=== PATIENT | female | born 1935 | race Caucasian/White ===

== ENCOUNTER → 2017-05-23 | Day surgery (SDC) | payer BC ==
[2017-04-20 08:44] VITALS: Ht 160 cm; Wt 54.5 kg
[~2017-05-23] VITALS: Ht 160 cm; Wt 54.5 kg
[~2017-05-23] MED LIST: 500ML BSS 0.3ML EPI 1:1000PF IRRIG ONE; ACETAMINOPHEN 325 MG TAB PO PRN; AMVISC PLUS 0.8ML SYRINGE INT OCU ONE; ATROPINE SULFATE 0.1 MG/ML 5ML SYR IV PRN; BSS FLUSH ONE; CALC600T9 PO; EpHEDrine SULFATE INJ 50 MG/ML AMP IV PRN; EpINEphrine INJ 1MG/ML AMP 1 MG/ML AMP ONE; LIDOCAINE 3.5% OPH GEL PER APPLICATION CHARGE ONE; LIDOCAINE HCL 1% MPF 2 ML VIAL ONE; MIDAZOLAM HCL 1 MG/ML 2ML VIAL ONE; OCUCOAT 1 ML SOLN IO ONE; POVIDONE-IODINE OP SOLN 30 ML BTL ONE; PROPARACAINE 0.5% OP SOLN PER DROP CHARGE OPL SCH; TOBRAMYCIN/DEXAMETHASONE OPH OINT PER APPLN CHARGE ONE
[2017-05-23] MEDS: PHENYLEPHRINE HCL 2.5% OP SOLN PER DROP CHARGE OPL SCH ×2 (10:39→10:44)
[2017-05-23] MEDS: TROPICAMIDE 1% OP SOLN PER DROP CHARGE OPL SCH ×2 (10:40→10:45)
[2017-05-23] MEDS: CYCLOPENTOLATE HCL 1% OP SOLN PER DROP CHARGE OPL SCH ×2 (10:41→10:46)
[2017-05-23] MEDS: KETOROLAC 0.5% OP SOLN PER DROP CHARGE OPL SCH ×2 (10:42→10:47)
[2017-05-23] MEDS: GATIFLOXACIN OP SOLN PER DROP CHARGE OPL SCH ×2 (10:43→10:53)
--- NOTE | 2017-05-23 11:09 | History & Physical Bridge - [place] ---
H&P Re-Evaluation Bridge Note: I have examined the patient, reviewed the History & Physical and in the interval since the performance of the History & Physical I have noted the following changes of clinical significance: No changes noted
--- NOTE | 2017-05-23 11:40 | [facility] Operative Report ---
Operative Report Date of Service May 23, 2017. Operative Report 1. PREOPERATIVE DIAGNOSIS: Cataract of the left eye. 2. POSTOPERATIVE DIAGNOSIS: Same. 3. PROCEDURE: Phacoemulsification with intraocular lens implantation of the left eye. SURGEON: Dr. De Pizano. ANESTHESIA: Topical Lidocaine gel, 1% Non- Preserved intracameral Lidocaine, and monitored intravenous sedation. INDICATIONS FOR THE PROCEDURE: The patient is a 81 - year-old female with a history of cataract of the left eye causing significant visual impairment. The details of the proposed procedure were explained to the patient who asked appropriate questions and following discussion of all risks, benefits and alternatives agreed to have the procedure done. 4. OPERATION AND FINDINGS: DESCRIPTION OF PROCEDURE: After informed consent was obtained, the patient was brought to the Operating Room at the [facility]. The patient was placed in a supine position and then the left eye was prepped and draped in the usual sterile fashion for intraocular surgery. A drop of topical Lidocaine gel was placed in the operative eye. A wire lid speculum was then placed in the fornices. A corneal paracentesis was then created temporally. The Non-Preserved Lidocaine was then instilled into the anterior chamber. The anterior chamber was then pressurized with viscoelastic. A 2.0 mm clear corneal incision was then created temporally. A cystotome was inserted into the anterior chamber and used to create a tear in the anterior lens capsule. This capsular tear was then used to create a small flap and the flap was dragged in a counterclockwise direction in order to create a continuous curvilinear capsulorrhexis. Hydrodissection was accomplished with balanced salt solution. Phacoemulsification of the lens nucleus was then performed in a standard [id number]-[id number] technique. The phaco time was 31 seconds with an average power of 18 %. The remaining cortical material was removed using irrigation aspiration. The capsular bag was then filled with viscoelastic. A [employer]ch [employer] Lomb MI60L +27.0 diopters lens was then loaded into the injector and injected into the capsular bag. The remaining viscoelastic was removed with the irrigation aspiration handpiece. The wound was hydrated and then checked and found to be watertight. The intraocular pressure was checked and found to be adequate. The wire lid speculum was removed and the patient's face was cleaned and dried. TobraDex ointment was placed in the inferior fornix. The patient was discharged to the Recovery Room having tolerated the procedure well. There were no complications. The patient will be seen tomorrow in the office for follow-up. I attest to the content of the Intraoperative Record and any orders documented therein. Any exceptions are noted below.
--- NOTE | 2017-05-23 11:41 | Discharge Instructions-SurgCtr ---
Discharge Instructions Date of Service May 23, 2017. Visit Reason for Visit: Cataract Left Eye Discharge Discharge Diagnosis / Problem: cataract Discharge Goals Goal(s): Improve function Activity Recommendations Activity Limitations: per Instructions/Follow-up section Anesthesia . Post Anesthesia Instructions: If you have had General Anesthesia or IV Sedation: * Do not drive today. * Resume driving when surgeon permits. * Do not make important decisions or sign legal documents today. * Call surgeon for: 1. Temperature elevations greater than 101 degrees F. 2. Uncontrollable pain. 3. Excessive bleeding. 4. Persistent nausea and vomiting. 5. Medication intolerance (nausea, vomiting or rash). * For nausea and vomiting use only clear liquids such as: tea, soda, bouillon until nausea subsides, then gradually increase diet as tolerated. * If you have any concerns or questions, call your surgeon's office. If physician is unavailable and it is an emergency, call 911 or go to the nearest emergency room. . Diet Recommendations Home Diet: resume previous diet Procedures Procedures Performed: Left Cataract Phacoemulsification With Intraocular Lens Implant Pending Studies Studies pending at discharge: no Medical Emergencies . Who to Call and When: Medical Emergencies: If at any time you feel your situation is an emergency, please call 911 immediately. . Non-Emergent Contact Non-Emergency issues call your: Wood Box Maker . . "Provider Documentation" section prepared by De Pizano. .
[2017-05-23 11:49] VITALS: TEMP 36.4
[2017-05-23 12:05] VITALS: BP 133/75; PULSE 64; O2SAT 94
--- NOTE | 2017-05-23 12:23 | Anesthesia Progress Nt - [facility] ---
Anesthesia Post Op Note Date & Time May 23, 2017 at 12:23 Vital Signs Pain Intensity: 2 Vital Signs Past 12 Hours Date Time Temp Pulse Resp B/P (MAP) Pulse Ox O2 Delivery O2 Flow Rate FiO2 05/23/17 12:05 64 16 133/75 (94) 94 Room Air 05/23/17 11:49 36.4 64 16 133/73 (93) 96 Room Air 05/23/17 10:34 36.7 65 20 133/81 (98) 94 Room Air Notes Mental Status: alert / awake / arousable, participated in evaluation Pt Amnestic to Procedure: Yes Nausea / Vomiting: adequately controlled Pain: adequately controlled Airway Patency, RR, SpO2: stable & adequate BP & HR: stable & adequate Hydration State: stable & adequate Anesthetic Complications: no major complications apparent
== END | disposition home or self-care (01) ==
LOC: X.SURG 10:12
PROVIDERS: ATTEND Ophthalmology
DX: H25.9 Unspecified age-related cataract (principal); E78.5 Hyperlipidemia, unspecified; M19.90 Unspecified osteoarthritis, unspecified site; Z90.89 Acquired absence of other organs; Z98.890 Other specified postprocedural states; Z88.5 Allergy status to narcotic agent

== ENCOUNTER → 2017-06-13 | Day surgery (SDC) | payer BC ==
[2017-05-31 13:08] VITALS: Ht 160 cm; Wt 54.5 kg
[~2017-06-13] VITALS: Ht 160 cm; Wt 54.5 kg
[~2017-06-13] MED LIST changes: +GATIFLOXACIN OP SOLN PER DROP CHARGE OPR SCH; +LACTATED RINGER'S 1000ML 500 ML IV SCH; -PROPARACAINE 0.5% OP SOLN PER DROP CHARGE OPL SCH; +PROPARACAINE 0.5% OP SOLN PER DROP CHARGE OPR SCH
[2017-06-13] MEDS: PHENYLEPHRINE HCL 2.5% OP SOLN PER DROP CHARGE OPR SCH ×2 (08:05→08:10)
[2017-06-13] MEDS: TROPICAMIDE 1% OP SOLN PER DROP CHARGE OPR SCH ×2 (08:06→08:11)
[2017-06-13] MEDS: CYCLOPENTOLATE HCL 1% OP SOLN PER DROP CHARGE OPR SCH ×2 (08:07→08:12)
[2017-06-13] MEDS: KETOROLAC 0.5% OP SOLN PER DROP CHARGE OPR SCH ×2 (08:08→08:13)
--- NOTE | 2017-06-13 09:01 | [facility] Operative Report ---
Operative Report Date of Service Jun 13, 2017. Operative Report 1. PREOPERATIVE DIAGNOSIS: Cataract of the right eye. 2. POSTOPERATIVE DIAGNOSIS: Same. 3. PROCEDURE: Phacoemulsification with intraocular lens implantation of the right eye. SURGEON: Dr. De Pizano. ANESTHESIA: Topical Lidocaine gel, 1% Non- Preserved intracameral Lidocaine, and monitored intravenous sedation. INDICATIONS FOR THE PROCEDURE: The patient is a 81 - year-old female with a history of cataract of the right eye causing significant visual impairment. The details of the proposed procedure were explained to the patient who asked appropriate questions and following discussion of all risks, benefits and alternatives agreed to have the procedure done. 4. OPERATION AND FINDINGS: DESCRIPTION OF PROCEDURE: After informed consent was obtained, the patient was brought to the Operating Room at the [facility]. The patient was placed in a supine position and then the right eye was prepped and draped in the usual sterile fashion for intraocular surgery. A drop of topical Lidocaine gel was placed in the operative eye. A wire lid speculum was then placed in the fornices. A corneal paracentesis was then created temporally. The Non-Preserved Lidocaine was then instilled into the anterior chamber. The anterior chamber was then pressurized with viscoelastic. A 2.0 mm clear corneal incision was then created temporally. A cystotome was inserted into the anterior chamber and used to create a tear in the anterior lens capsule. This capsular tear was then used to create a small flap and the flap was dragged in a counterclockwise direction in order to create a continuous curvilinear capsulorrhexis. Hydrodissection was accomplished with balanced salt solution. Phacoemulsification of the lens nucleus was then performed in a standard wxewtv-had-vvsviva technique. The phaco time was 22 seconds with an average power of 13 %. The remaining cortical material was removed using irrigation aspiration. The capsular bag was then filled with viscoelastic. A Bausch [employer] Lomb MI60L +21.5 diopters lens was then loaded into the injector and injected into the capsular bag. The remaining viscoelastic was removed with the irrigation aspiration handpiece. The wound was hydrated and then checked and found to be watertight. The intraocular pressure was checked and found to be adequate. The wire lid speculum was removed and the patient's face was cleaned and dried. TobraDex ointment was placed in the inferior fornix. The patient was discharged to the Recovery Room having tolerated the procedure well. There were no complications. The patient will be seen tomorrow in the office for follow-up. I attest to the content of the Intraoperative Record and any orders documented therein. Any exceptions are noted below.
--- NOTE | 2017-06-13 09:02 | Discharge Instructions-SurgCtr ---
Discharge Instructions Date of Service Jun 13, 2017. Visit Reason for Visit: Cataract Right Eye Discharge Discharge Diagnosis / Problem: cataract Discharge Goals Goal(s): Improve function Activity Recommendations Activity Limitations: per Instructions/Follow-up section Anesthesia . Post Anesthesia Instructions: If you have had General Anesthesia or IV Sedation: * Do not drive today. * Resume driving when surgeon permits. * Do not make important decisions or sign legal documents today. * Call surgeon for: 1. Temperature elevations greater than 101 degrees F. 2. Uncontrollable pain. 3. Excessive bleeding. 4. Persistent nausea and vomiting. 5. Medication intolerance (nausea, vomiting or rash). * For nausea and vomiting use only clear liquids such as: tea, soda, bouillon until nausea subsides, then gradually increase diet as tolerated. * If you have any concerns or questions, call your surgeon's office. If physician is unavailable and it is an emergency, call 911 or go to the nearest emergency room. . Diet Recommendations Home Diet: resume previous diet Procedures Procedures Performed: Right Cataract Phacoemulsification With Intraocular Lens Implant Pending Studies Studies pending at discharge: no Medical Emergencies . Who to Call and When: Medical Emergencies: If at any time you feel your situation is an emergency, please call 911 immediately. . Non-Emergent Contact Non-Emergency issues call your: Rubbish Collector . . "Provider Documentation" section prepared by De Pizano. .
[2017-06-13 09:03] VITALS: TEMP 36.7
--- NOTE | 2017-06-13 09:20 | Anesthesia Progress Nt - [facility] ---
Anesthesia Post Op Note Date & Time Jun 13, 2017 at 09:20 Vital Signs Pain Intensity: 0 Vital Signs Past 12 Hours Date Time Temp Pulse Resp B/P (MAP) Pulse Ox O2 Delivery O2 Flow Rate FiO2 06/13/17 09:03 36.7 60 16 146/69 (94) 96 Room Air 06/13/17 07:55 36.4 69 16 133/83 (100) 96 Room Air Notes Mental Status: alert / awake / arousable, participated in evaluation Pt Amnestic to Procedure: Yes Nausea / Vomiting: adequately controlled Pain: adequately controlled Airway Patency, RR, SpO2: stable & adequate BP & HR: stable & adequate Hydration State: stable & adequate Anesthetic Complications: no major complications apparent
[2017-06-13 09:28] VITALS: BP 144/65; PULSE 60; O2SAT 95
== END | disposition home or self-care (01) ==
LOC: X.SURG 07:44
PROVIDERS: ATTEND Ophthalmology
DX: H25.9 Unspecified age-related cataract (principal); M19.90 Unspecified osteoarthritis, unspecified site; R94.31 Abnormal electrocardiogram [ECG] [EKG]; R76.11 Nonspecific reaction to tuberculin skin test without active tuberculosis; E78.5 Hyperlipidemia, unspecified

== ENCOUNTER 2022-03-05 20:33 | Inpatient (IN) ==
[2022-03-05 21:16] LABS: Basophils # (auto) 0.04 K/uL (0-0.2); Basophils % (auto) 0.5 %; Eosinophils % (auto) 3.8 %; Hematocrit (blood only) 40.9 % (34.1-44.9); Hemoglobin 13.9 g/dl (12.0-16.0); INR 0.9 (0.9-1.1); Immature Granulocytes # (auto) 0.02 K/uL (0.00-0.02); Immature Granulocytes % (auto) 0.3 %; Lymphocytes # (auto) 2.44 K/uL (1.2-3.4); Lymphocytes % (auto) 30.6 %; Mean Corpuscular Hemoglobin 31.9 pg (25.0-34.0); Mean Corpuscular Volume 93.8 fL (80.0-100.0); Mean Platelet Volume 10.4 fL (9.4-12.3); Monocytes # (auto) 0.88 K/uL (0.24-0.82); Neutrophils # (auto) 4.29 K/uL (1.4-6.5); Neutrophils % (auto) 53.8 %; Partial Thromboplastin Ratio 0.9; Partial Thromboplastin Time 24.3 Seconds (21.0-31.0); Platelet Count 270 K/uL (130-400); RDW Coefficient of Variation 13.1 % (11.5-14.5); RDW Standard Deviation 44.7 fL (36.4-46.3); Red Blood Count 4.36 M/uL (3.93-5.22); White Blood Count 7.97 K/ul (4.8-10.8)
[2022-03-05 21:24] LABS: Alanine Aminotransferase 14 U/L (7-52); Albumin Globulin Ratio 1.2 (0.9-2); Albumin Level 4.2 gm/dl (3.4-5.0); Alkaline Phosphatase 58 U/L (34-104); Anion Gap 10 (3-11); Aspartate Aminotransferase 22 U/L (13-39); BUN Creatinine Ratio 27.2 (10-20); Bilirubin,Total 0.5 mg/dl (0.2-1.0); Blood Urea Nitrogen 22 mg/dl (6-23); Calcium 9.9 mg/dl (8.5-10.1); Carbon Dioxide 26 mmol/L (21-32); Chloride 104 mmol/L (98-107); Est GFR (African American) 76.8 ml/min; Est GFR (Non-African American) 66.2 ml/min; Globulin 3.4 gm/dl (2.5-4.0); Glucose 81 mg/dl (70-99(Fasting)); Potassium 3.5 mmol/L (3.5-5.1); Sodium 140 mmol/L (136-145); Total Protein 7.6 gm/dl (6.0-8.3)
[2022-03-05 21:26] LABS: Troponin I High Sensitivity 5.9 pg/ml (0-14)
[2022-03-05] MEDS ORDERED: OPTIRAY 350 100ml IV ONE (21:59)
--- NOTE | 2022-03-05 23:00 | CT Scan Report ---
CT abd pelvis IV con only CLINICAL HISTORY: upper/mid abd pain TECHNIQUE: Helical axial images of the abdomen and pelvis were obtained and displayed. Automated dose lowering techniques and/or adjustment according to patient size were utilized for this exam. This ex am was performed with intravenous contrast. CT DOSE: 243.57 mGy.cm COMPARISON: Comparison is made to CT abdomen pelvis 12/02/2015 FINDINGS: Lower chest: Bibasilar atelectasis versus scarring is seen. Liver: Hepatic cysts are seen. Gallbladder and biliary tree: Cholelithiasis is seen including stones in the gallbladder neck. The ga llbladder wall is prominent measuring approximately 3 mm in diameter. There is dilation of the common bile duct measuring up to 8 mm. A calcific stone is noted in the distal common bile duct. Pancreas: Unremarkable, no focal lesions. Spleen: Unremarkable. Adrenals: Unremarkable. Kidneys and ureters: Unremarkable. Bladder: Unremarkable. Reproductive organs: Unremarkable. Bowel: Diverticulosis is seen without evidence of diverticulitis. The appendix is normal. Lymph nodes Retroperitoneal: Unremarkable. Pelvic: Unremarkable. Mesenteric: Unremarkable. Peritoneum: Normal. Vessels: Atherosclerotic calcifications are seen. Abdominal wall: Unremarkable. Bones: Degenerative changes in the visualized spine. IMPRESSION: Choledocholithiasis is seen with associated dilation of the common bile duct. There is thickening of the gallbladder wall which may reflect a secondary cholecystitis. Cholelithiasis is seen. ACT 112: Negative or not required by law. Electronically signed by: Paul Porter M.D. 03/05/2022 10:58 PM
--- NOTE | 2022-03-05 23:07 | Ultrasound Report ---
US gallbladder CLINICAL HISTORY: epi pain TECHNIQUE: Multiple real-time sonographic images of the right upper quadrant were obtained. Comparison: Comparison is made to CT abdomen pelvis 03/05/2022 FINDINGS: The liver is diffusely homogenous with normal contour and echogenicity. Multiple hepatic cysts are se en measuring up to 2.4 cm. No intrahepatic ductal dilatation is seen. Linear hyperechoic foci with posterior shadowing are identified layering dependently within the gallbladder, which are consistent with gallstones. The gallbladder wall is not thickened. There is no pericholecystic fluid present. A sonographic Jovel's sign was not elicited by the metalizing supervisor. The common duct measures 1.1 cm in diameter at the level of the hepatic artery. The visualized portions of the pancreas appear normal. The right kidney shows normal echogenicity, cortical thickness and renal contour. The right kidney sh ows no evidence of hydronephrosis or mass. No ascites or free fluid is seen in Matthews's pouch. IMPRESSION: Marked dilation of the common bile duct measuring 1.1 cm in diameter compatible with choledocholithia sis seen on CT abdomen pelvis. Multiple stones are seen in the gallbladder without evidence of cholec ystitis. ACT 112: Negative or not required by law. Electronically signed by: Paul Porter M.D. 03/05/2022 11:05 PM
--- NOTE | 2022-03-05 23:34 | History & Physical Report ---
Date of Service March 05, 2022 Assessment & Plan (1) Choledocholithiasis: Plan: Choledocholithiasis - Presenting with acute-onset upper abdominal pain with evidence of choledocholithiasis on CT-A/P and RUQ US - CT-A/P: "choledocholithiasis is seen with associated dilatation of the common bile duct. There is thickening of the gallbladder wall which may reflect secondary cholecystitis." - Gallbladder US demonstrated "Marked dilation of the common bile duct measuring 1.1 cm in diameter compatible with choledocholithiasis ... Multiple stones are seen in the gallbladder without evidence of cholecystitis." - Appreciate general surgery consult and input on ?CCY while here - Appreciate GI consult and input on ERCP while here - NPO w/ mIVF @ 80cc/hr x 1L ordered - Continue Zosyn - Pain: Morphine 2mg IV q2h PRN > Dilaudid 0.25mg IV breakthrough -- can escalate as needed - Trend LFTs (2) Hypertension: Plan: HTN, HLD - Continue amlodipine, metoprolol, ASA 81 Plan Code: FULL Dispo: MS Diet: NPO PPX: SCDs History of Present Illness Primary Care Provider: Selena Bloom MD This is an 86-year-old female with a history of degenerative disc disease, bronchiectasis, hypertension who presented to [facility] for evaluation of epigastric pain. Patient says she was sitting quietly and reading around 830 this evening when she developed acute onset upper abdominal pain rating towards her right side. She denies ever having pain like this before. She waited to see if it would go away on its own, but unfortunately is not. She reported to the ER shortly thereafter. In the ER, the pain spontaneously resolved on its own prior to the receipt of any pain medications. Unfortunately, about an hour later, it did reappear more intensely. She denies any nausea or vomiting. Denies any chest pain. Denies any shortness of breath. She denies any recent health issues. Medications reviewed include amlodipine, aspirin, vitamin D3, calcium, metoprolol 25 mg daily, rosuvastatin 5 mg daily. She has no history of intra-abdominal surgeries. She does mention that she was scheduled to have hip surgery within the coming weeks. In ED, patient was found to be mildly hypertensive with otherwise normal vital signs. Admission labs were revealing for normal CBC, chemistries, normal LFTs. CT of the abdomen and pelvis demonstrated "choledocholithiasis is seen with associated dilatation of the common bile duct. There is thickening of the gallbladder wall which may reflect secondary cholecystitis." Gallbladder US demonstrated "Marked dilation of the common bile duct measuring 1.1 cm in diameter compatible with choledocholithiasis seen on CT abdomen pelvis. Multiple stones are seen in the gallbladder without evidence of cholecystitis." ECG demonstrated isolated ST depression in V3 but otherwise unchanged compared to previous. She was given morphine. ---- This documentation was created utilizing dictation software. As such, syntax, grammatical, and word-choice errors may be present. Notes are screened prior to submission in an attempt to reduce these errors. If there are any questions or concerns, please contact the author directly for clarification. Allergies Allergy/AdvReac Type Severity Reaction Status Date / Time codeine AdvReac Unknown VOMITTING Verified 03/06/22 00:27 Home Medications Medication Instructions Recorded Confirmed Type aspirin 81 mg tablet,delayed 81 mg PO DAILY #30 tabs 08/01/19 03/06/22 Rx release rosuvastatin 5 mg tablet 5 mg PO DAILY #90 tabs 08/01/19 03/06/22 Rx metoprolol succinate 25 mg capsule 25 mg PO DAILY 06/23/20 03/06/22 History sprinkle, ext. release 24 hr cholecalciferol (vitamin D3) 25 25 mcg PO DAILY #30 caps 06/24/20 03/06/22 Rx mcg (1,000 unit) capsule amlodipine 2.5 mg tablet 2.5 mg PO DAILY 06/28/21 03/06/22 History calcium carbonate 600 mg calcium 600 mg PO DAILY 11/24/21 03/06/22 History (1,500 mg) tablet (Calcium) vitamin B complex (B 1 tab PO DAILY 11/24/21 03/06/22 History Complex-Vitamin B12 tablet) Past Med/Surg History Medical History Chest pain Diverticulosis of colon Excessive cerumen in left ear canal Impacted cerumen of both ears PPD positive Negative blood test for TB 2019 Right hip pain Surgical History H/O elbow surgery Family History Sister Lung cancer Mother Stroke Brother Stroke Other Cancer Heart disease Tuberculosis Denies family history of Ovarian cancer Prostate cancer Myocardial infarction Breast cancer Colorectal cancer Social History Smoking Status: Never smoker Second Hand Exposure: No; Hx Alcohol Use: Yes Alcohol type: wine Alcohol Intake Frequency: 2-3 x/Week Hx Substance Use: No Preferred Language: Tajik Communication Ability: Effective Design Eng Required: No Beliefs That Will Affect Care: None marital status: Current Living Situation: Spouse current occupational status: retired Feels Safe at Home: Yes Safety Concerns: Feels Safe At This Time Childhood Exposure to Second-Hand Smoke: Yes Dental Care, Regularly: Yes Physical Activity Frequency: Does not Exercise Seatbelt Use: always Sunscreen Use: Yes Assistive Devices: None Review of Systems Review of Systems: as per HPI Physical Exam Physical Exam: General: 86-year old female who is alert, oriented, and appears in moderate distress secondary to pain. HEENT: NCAT. - Eyes - Sclera are white, anicteric, and without injection. - Mouth - MMM - Neck - supple, no appreciable JVD Cardiac: Normal rate and regular rhythm; S1 and S2 present with no murmurs, rubs, or gallops. Pulmonary: Good respiratory effort with symmetric expansion of the chest. No use of accessory muscles. Lungs were clear to auscultation bilaterally with no crackles or wheezes. Abdominal: Normoactive bowel sounds. Abdomen was soft, nondistended. There was mild-moderate TTP in the RUQ. +Jovel sign. Extremities: Upper and lower extremities are warm and well perfused. No peripheral edema in the lower extremities bilaterally Results & Data Results & Data ([facility]) Vital Signs (Past 12 Hours) Vital Signs Temp Pulse Pulse Resp BP BP Pulse Ox 03/05/22 22:04 80 17 157/88 H 98 03/05/22 20:36 36.4 C L 83 18 172/85 H 98 O2 Del Method 03/05/22 22:04 Room Air 03/05/22 20:36 Room Air Laboratory Results Laboratory Results WBC 7.97 K/ul (4.8-10.8) 03/05/22 20:45 RBC 4.36 M/uL (3.93-5.22) 03/05/22 20:45 Hgb 13.9 g/dl (12.0-16.0) 03/05/22 20:45 Hct 40.9 % (34.1-44.9) 03/05/22 20:45 MCV 93.8 fL (80.0-100.0) 03/05/22 20:45 MCH 31.9 pg (25.0-34.0) 03/05/22 20:45 MCHC 34.0 g/dL (32.0-36.0) 03/05/22 20:45 RDW Std Deviation 44.7 fL (36.4-46.3) 03/05/22 20:45 RDW Coeff of Minda 13.1 % (11.5-14.5) 03/05/22 20:45 Plt Count 270 K/uL (130-400) 03/05/22 20:45 MPV 10.4 fL (9.4-12.3) 03/05/22 20:45 Immature Gran % (Auto) 0.3 % 03/05/22 20:45 Neut % (Auto) 53.8 % 03/05/22 20:45 Lymph % (Auto) 30.6 % 03/05/22 20:45 Gem % (Auto) 11.0 % 03/05/22 20:45 Eos % (Auto) 3.8 % 03/05/22 20:45 Baso % (Auto) 0.5 % 03/05/22 20:45 Neut # (Auto) 4.29 K/uL (1.4-6.5) 03/05/22 20:45 Lymph # (Auto) 2.44 K/uL (1.2-3.4) 03/05/22 20:45 Gem # (Auto) 0.88 K/uL (0.24-0.82) H 03/05/22 20:45 Eos # (Auto) 0.30 K/uL (0-0.50) 03/05/22 20:45 Baso # (Auto) 0.04 K/uL (0-0.2) 03/05/22 20:45 Immature Gran # (Auto) 0.02 K/uL (0.00-0.02) 03/05/22 20:45 PT 10.0 Seconds (9.0-12.0) 03/05/22 20:45 INR 0.9 (0.9-1.1) 03/05/22 20:45 APTT 24.3 Seconds (21.0-31.0) 03/05/22 20:45 PTT Ratio 0.9 03/05/22 20:45 Sodium 140 mmol/L (136-145) 03/05/22 20:45 Potassium 3.5 mmol/L (3.5-5.1) 03/05/22 20:45 Chloride 104 mmol/L (98-107) 03/05/22 20:45 Carbon Dioxide 26 mmol/L (21-32) 03/05/22 20:45 Anion Gap 10 (3-11) 03/05/22 20:45 BUN 22 mg/dl (6-23) 03/05/22 20:45 Creatinine 0.81 mg/dl (0.6-1.2) 03/05/22 20:45 Est Cr Clr Drug Dosing Not Reportable 03/05/22 20:45 Est GFR ( Amer) 76.8 ml/min 03/05/22 20:45 Est GFR (Non-Af Amer) 66.2 ml/min 03/05/22 20:45 BUN/Creatinine Ratio 27.2 (10-20) H 03/05/22 20:45 Glucose 81 mg/dl (70-99(Fasting)) 03/05/22 20:45 Calcium 9.9 mg/dl (8.5-10.1) 03/05/22 20:45 Total Bilirubin 0.5 mg/dl (0.2-1.0) 03/05/22 20:45 AST 22 U/L (13-39) 03/05/22 20:45 ALT 14 U/L (7-52) 03/05/22 20:45 Alkaline Phosphatase 58 U/L (34-104) 03/05/22 20:45 Troponin I High Sens 6.6 pg/ml (0-14) 03/05/22 23:17 Total Protein 7.6 gm/dl (6.0-8.3) 03/05/22 20:45 Albumin 4.2 gm/dl (3.4-5.0) 03/05/22 20:45 Globulin 3.4 gm/dl (2.5-4.0) 03/05/22 20:45 Albumin/Globulin Ratio 1.2 (0.9-2) 03/05/22 20:45 Lipase 26 U/L (11-82) 03/05/22 23:17 SARS-CoV-2, RNA, NAAT NEGATIVE (NEGATIVE) 03/05/22 23:41 Impressions Abdomen/Pelvis CT 03/05/22 21:43 CT abd pelvis IV con only CLINICAL HISTORY: upper/mid abd pain TECHNIQUE: Helical axial images of the abdomen and pelvis were obtained and displayed. Automated dose lowering techniques and/or adjustment according to patient size were utilized for this exam. This exam was performed with intravenous contrast. CT DOSE: 243.57 mGy.cm COMPARISON: Comparison is made to CT abdomen pelvis 12/02/2015 FINDINGS: Lower chest: Bibasilar atelectasis versus scarring is seen. Liver: Hepatic cysts are seen. Gallbladder and biliary tree: Cholelithiasis is seen including stones in the gallbladder neck. The gallbladder wall is prominent measuring approximately 3 mm in diameter. There is dilation of the common bile duct measuring up to 8 mm. A calcific stone is noted in the distal common bile duct. Pancreas: Unremarkable, no focal lesions. Spleen: Unremarkable. Adrenals: Unremarkable. Kidneys and ureters: Unremarkable. Bladder: Unremarkable. Reproductive organs: Unremarkable. Bowel: Diverticulosis is seen without evidence of diverticulitis. The appendix is normal. Lymph nodes Retroperitoneal: Unremarkable. Pelvic: Unremarkable. Mesenteric: Unremarkable. Peritoneum: Normal. Vessels: Atherosclerotic calcifications are seen. Abdominal wall: Unremarkable. Bones: Degenerative changes in the visualized spine. IMPRESSION: Choledocholithiasis is seen with associated dilation of the common bile duct. There is thickening of the gallbladder wall which may reflect a secondary cholecystitis. Cholelithiasis is seen. ACT 112: Negative or not required by law. Electronically signed by: Paul Porter M.D. 03/05/2022 10:58 PM Gallbladder Ultrasound 03/05/22 21:43 US gallbladder CLINICAL HISTORY: epi pain TECHNIQUE: Multiple real-time sonographic images of the right upper quadrant were obtained. Comparison: Comparison is made to CT abdomen pelvis 03/05/2022 FINDINGS: The liver is diffusely homogenous with normal contour and echogenicity. Multiple hepatic cysts are seen measuring up to 2.4 cm. No intrahepatic ductal dilatation is seen. Linear hyperechoic foci with posterior shadowing are identified layering dependently within the gallbladder, which are consistent with gallstones. The gallbladder wall is not thickened. There is no pericholecystic fluid present. A sonographic Jovel's sign was not elicited by the information strategist. The common duct measures 1.1 cm in diameter at the level of the hepatic artery. The visualized portions of the pancreas appear normal. The right kidney shows normal echogenicity, cortical thickness and renal contour. The right kidney shows no evidence of hydronephrosis or mass. No ascites or free fluid is seen in Matthews's pouch. IMPRESSION: Marked dilation of the common bile duct measuring 1.1 cm in diameter compatible with choledocholithiasis seen on CT abdomen pelvis. Multiple stones are seen in the gallbladder without evidence of cholecystitis. ACT 112: Negative or not required by law. Electronically signed by: Paul Porter M.D. 03/05/2022 11:05 PM Supervising Physician Co-Signing Physician Notes Patient seen and examined, chart reviewed, case discussed with Dr. Mosley and I agree with the assessment and plan as above. In brief, patient is an 86yo female presenting with choledocholithiasis. She is afebrile, HD stable, no clinical evidence of cholangitis. Labs are largely unremarkable as above. On exam she is afebrile, HD stable In significant amount of pain in epigastric and RUQ, relieved with morphine +S1/S2, regular, no m/r/g Lungs CTA Abd soft, NT/ND Ext warm, well perfused Labs and images reviewed Assessment/Plan - 86yo female presenting with choledocholithiasis, CBD 1.1cm dilated, no evidence of cholangitis. Possible cholecystitis by CT fndings -Admit to medical team -Zosyn, pain control and anti-emetics -GI consultation appreciated -General Surgery consultation appreciated -Remainder as above Resident Activity Tracking Resident Involvement: Resident Care Provided Care Provided: Adult Hospital Medicine
[2022-03-05] MEDS ORDERED: PIPERACILLIN/TAZOBACTAM 4.5 GM/120 ML BAG IV ONE (23:35)
--- NOTE | 2022-03-05 23:44 | Emergency Department Note ---
ED Visit Note I was consulted by the Advanced Practice Provider Yoli Mobley PA-C. I saw the patient personally and performed a substantive portion of the visit. This includes aspects of the HPI, MDM, diagnostic interpretations, and disposition/plan. Patient was evaluated and was found to have choledocholithiasis. The patient was admitted to the medicine service. .
--- NOTE | 2022-03-05 23:47 | Surgery Consultation ---
Date of Consultation March 05, 2022 Assessment & Plan (1) Cholelithiasis: (2) Choledocholithiasis: It appears on imaging the patient has cholelithiasis as well as choledocholithiasis. We recommend proceeding as follows: I discussed with the treating emergency room clinician and she is having the hospitalist admit the patient Provide analgesics Provide antiemetics Provide IV fluid for hydration Implement n.p.o. status Initiate antibioticslikely treating clinician in the emergency department has initiated Zosyn Follow serial labs It appears as though the patient may benefit from a cholecystectomy, however due to the noted choledocholithiasis on imaging the patient will require GI co nsultation where consideration can be given to performing ERCP prior to cholecystectomy. Timing of cholecystectomy will be dependent on further recommendations by gastroenterology At the present time the patient does not appear to be suffering from cholangitis as she does not have a fever and her LFTs are not elevated. I discussed the above with the patient and her who [facility]. Additional recommendations will be forthcoming based on her clinical course as it unfolds Supervising Physician Co-Signing Physician Notes As per Edis Brock physician assistant production manager We will plan to proceed with laparoscopic cholecystectomy prior or after ERCP schedule History of Present Illness Reason for Consultation: Cholelithiasis History of Present Illness This is an 86-year-old female who presented to the emergency department [facility] secondary to pain in her upper abdomen. As the pain was located in her upper abdomen she was more concerned about a cardiac etiology. However upon further questioning the patient reports that the pain is in a bandlike fashion across her upper abdomen. She says she has never had any abdominal surgeries before and has never experienced this type of pain before. She denies any fevers, shakes, or chills. She denies any nausea or vomiting. I did question patient on postprandial pain and which she says she typically does not get. She said that this current episode of pain was unrelated to any meals. Since arrival to the emergency department the patient has had labs and imaging which independent reviewed. An EKG showed normal sinus rhythm without changes indicative of acute ischemia. CBC revealed white blood cell count, hemoglobin, hematocrit, and platelet count were normal. Chemistry profile showed sodium, potassium, BUN, and creatinine were normal. There is no elevation of bilirubin, transaminases or alkaline phosphatase. Patient did have a troponin checked which was nonelevated. Lipase was also not elevated. A gallbladder ultrasound showed marked dilatation of the common bile duct which was felt to be consistent with choledocholithiasis. There are multiple gallstones seen in the gallbladder without evidence of cholecystitis. A CT scan of the abdomen showed choledocholithiasis with associated dilatation of the common bile duct. Thickened gallbladder wall was noted on this study. At the time of my interview she was resting comfortably in bed and was in no distress. Allergies Allergy/AdvReac Type Severity Reaction Status Date / Time codeine AdvReac Unknown VOMITTING Verified 03/06/22 00:27 Home Medications Medication Instructions Recorded Confirmed Type aspirin 81 mg tablet,delayed 81 mg PO DAILY #30 tabs 08/01/19 03/06/22 Rx release rosuvastatin 5 mg tablet 5 mg PO DAILY #90 tabs 08/01/19 03/06/22 Rx metoprolol succinate 25 mg capsule 25 mg PO DAILY 06/23/20 03/06/22 History sprinkle, ext. release 24 hr cholecalciferol (vitamin D3) 25 25 mcg PO DAILY #30 caps 06/24/20 03/06/22 Rx mcg (1,000 unit) capsule amlodipine 2.5 mg tablet 2.5 mg PO DAILY 06/28/21 03/06/22 History calcium carbonate 600 mg calcium 600 mg PO DAILY 11/24/21 03/06/22 History (1,500 mg) tablet (Calcium) vitamin B complex (B 1 tab PO DAILY 11/24/21 03/06/22 History Complex-Vitamin B12 tablet) Patient History Medical History Chest pain Diverticulosis of colon Excessive cerumen in left ear canal Impacted cerumen of both ears PPD positive Negative blood test for TB 2019 Right hip pain Surgical History H/O elbow surgery Family History Sister Lung cancer Mother Stroke Brother Stroke Other Cancer Heart disease Tuberculosis Denies family history of Ovarian cancer Prostate cancer Myocardial infarction Breast cancer Colorectal cancer Social History Smoking Status: Never smoker Second Hand Exposure: No; Hx Alcohol Use: Yes Alcohol type: wine Alcohol Intake Frequency: 2-3 x/Week Hx Substance Use: No Preferred Language: Bengali Communication Ability: Effective Deep Submergence Vehicle Operator Required: No Beliefs That Will Affect Care: None marital status: Current Living Situation: Spouse current occupational status: retired Feels Safe at Home: Yes Safety Concerns: Feels Safe At This Time Childhood Exposure to Second-Hand Smoke: Yes Dental Care, Regularly: Yes Physical Activity Frequency: Does not Exercise Seatbelt Use: always Sunscreen Use: Yes Assistive Devices: None Review of Systems 2 Constitutional: no fever and no chills Eyes: no eye pain Ear, Nose, Mouth, Throat: no ear pain Respiratory: no cough and no dyspnea Cardiovascular: no chest pain Gastrointestinal: + abdominal pain; no nausea and no vomiting Genitourinary: no dysuria Musculoskeletal: no back pain Integumentary: no rash Neurologic: no localized weakness Physical Exam Constitutional: WD/WN, vitals as above Eyes: + anicteric sclerae ENMT: Ears: no hearing impairment and no external ear abnormality Sublingual jaundice is absent Neck: trachea midline Respiratory: normal respiratory effort; no respiratory distress and no labored breathing Cardiovascular: Rate/Rhythm: regular rate and regular rhythm Gastrointestinal (Abdomen): Abdomen is soft without distention. There is no rebound tenderness or guarding. The patient did have pain with palpation across her upper abdomen which appeared to be greatest in the right upper quadrant and to a lesser degree the epigastric area. Musculoskeletal: No calf tenderness Skin: no rashes Neurologic: moves all extremities Psychiatric: A+Ox3, euthymic affect Results & Data ([facility]) Vital Signs (Past 12 Hours) Vital Signs Temp Pulse Pulse Resp BP BP Pulse Ox 03/05/22 22:04 80 17 157/88 H 98 03/05/22 20:36 36.4 C L 83 18 172/85 H 98 O2 Del Method 03/05/22 22:04 Room Air 03/05/22 20:36 Room Air PG Care Time/CCT Total # of Minutes Spent Total Time Spent with Patient: Total time spent is greater than 50% in coordination of care (as documented) at patient's floor/unit and/or counseling patient: Coding Level of Care Code 38406 Inpt Consult Level 5 Diagnoses Cholelithiasis K80.20 Choledocholithiasis K80.50
[2022-03-05] MEDS ORDERED: MoRPHine SULFATE 2 MG/ML CARP IV STA (23:50)
[2022-03-05] MEDS ORDERED: ONDANSETRON INJ 2 MG/ML 2 ML VIAL IV STA (23:50)
--- NOTE | 2022-03-06 00:10 | Emergency Department Note ---
History of Present Illness General Chief complaint: Chest Pain Stated complaint: CHEST PAIN Time Seen by Provider: 03/05/22 21:26 History of Present Illness Maximum Pain Intensity: 10 This 86-year-old presents to the ER complaining of upper abdominal pain Location: Upper abdomen Quality: Painful Severity: Moderate Duration: Tonight Timing: Tonight Context: Patient was concerned and came in Modifying factors: better with rest; worse with palpation Patient states the pain has subsided. She had food for dinner. Nothing new. Patient denies chest pain, dyspnea, vomiting, diarrhea, fever, chills, flulike illness. She still has her gallbladder. Home Medications Medication Instructions Recorded Confirmed Type aspirin 81 mg tablet,delayed 81 mg PO DAILY #30 tabs 08/01/19 01/06/22 Rx release rosuvastatin 5 mg tablet 5 mg PO DAILY #90 tabs 08/01/19 01/06/22 Rx metoprolol succinate 25 mg capsule 25 mg PO DAILY 06/23/20 01/06/22 History sprinkle, ext. release 24 hr cholecalciferol (vitamin D3) 25 25 mcg PO DAILY #30 caps 06/24/20 01/06/22 Rx mcg (1,000 unit) capsule amlodipine 2.5 mg tablet 2.5 mg PO DAILY 06/28/21 01/06/22 History calcium carbonate 600 mg calcium 600 mg PO DAILY 11/24/21 01/06/22 History (1,500 mg) tablet (Calcium) vitamin B complex (B 1 tab PO DAILY 11/24/21 01/06/22 History Complex-Vitamin B12 tablet) diclofenac sodium 1 % topical gel 2 g topical QID #100 grams 01/06/22 01/06/22 Rx triamcinolone acetonide 0.1 % 1 applic topical BID #15 grams 01/06/22 01/06/22 Rx topical cream Allergies Allergy/AdvReac Type Severity Reaction Status Date / Time codeine AdvReac Unknown VOMITTING Verified 01/06/22 10:40 Past Med/Surg History Medical History Chest pain Diverticulosis of colon Excessive cerumen in left ear canal Impacted cerumen of both ears PPD positive Negative blood test for TB 2019 Right hip pain Surgical History H/O elbow surgery Family History Sister Lung cancer Mother Stroke Brother Stroke Other Cancer Heart disease Tuberculosis Denies family history of Ovarian cancer Prostate cancer Myocardial infarction Breast cancer Colorectal cancer Social History Smoking Status: Never smoker Second Hand Exposure: No; Hx Alcohol Use: Yes Alcohol type: wine Alcohol Intake Frequency: 2-3 x/Week Hx Substance Use: No Preferred Language: Ghanaian 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: No marital status: current occupational status: retired Feels Safe at Home: Yes Childhood Exposure to Second-Hand Smoke: Yes Dental Care, Regularly: Yes Physical Activity Frequency: Does not Exercise Seatbelt Use: always Sunscreen Use: Yes Review of Systems A total of 10 systems reviewed and were otherwise negative Physical Exam Vital Signs Vital Signs - 24 hr 03/05/22 20:36 03/05/22 22:04 03/05/22 23:44 Temperature 36.4 C L Temperature Source Oral Pulse Rate 83 Pulse Rate [Finger] 80 76 Pulse Rhythm [Finger] Regular Pulse Strength [Finger] Normal Respiratory Rate 18 17 18 Respiratory Effort / Characteristics Non-Labored Spontaneous Respiratory Depth Normal Respiratory Pattern Regular Blood Pressure 172/85 H Blood Pressure [Right Arm] 157/88 H 189/77 H Blood Pressure Mean 114 Blood Pressure Mean [Right Arm] 111 114 Blood Pressure Position Sitting Blood Pressure Position [Right Arm] Lying Pulse Oximetry 98 98 97 Oxygen Delivery Method Room Air Room Air Room Air Sepsis Recent Fever Within 48 Hours No Sepsis New/Unexplained Change in Mental Status N/A Sepsis Action Taken by Nursing No Action Required VITALS: Vitals are noted on the nurse's note and reviewed by myself. Vital signs stable GENERAL: Pleasant elderly female, in no acute distress, nondiaphoretic, well- developed well-nourished. SKIN: The skin was without rashes, erythema, edema, or bruising. There is no tenting of the skin. Capillary reflex less than 2 seconds. HEAD: Normocephalic atraumatic. EARS: External auditory canals clear, EYES: Pupils equal round and reactive to light and accommodation. Conjunctivae without injection, sclerae without icterus. Extraocular movements intact. NOSE: Patent, turbinates without inflammation or discharge. MOUTH: Mucous membranes moist. Pharynx without erythema or exudate. Uvula midline. Airway patent. Tongue does not deviate. NECK: Supple without nuchal rigidity. No lymphadenopathy. No thyromegaly. Cervical spine is nontender. No JVD. HEART: Regular rate and rhythm LUNGS: Clear to auscultation bilaterally without wheezes, rales or rhonchi. No retractions or accessory muscle use. ABDOMEN: Positive bowel sounds x 4. Normal tympanic percussion. Soft, tender to palpation upper abdomen,, without masses or organomegaly. No guarding or rebound tenderness. No CVA tenderness MUSCULOSKELETAL: No muscle atrophy, erythema, or edema noted. NEURO: Patient was alert and oriented to person place and time. Normal sensation to light and sharp touch. No focal neurological deficits. Course Administered Medications Discontinued Medications Piperacillin Sod/Tazobactam Sod (Zosyn) 4.5 gm in 120 mls @ 240 mls/hr IV NOW ONE Stop: 03/06/22 00:04 Last Admin: 03/05/22 23:43 Dose: 240 mls/hr Documented By: LIUDMILA Ioversol (Optiray 350 100ml) 91 ml IV ONCE ONE Stop: 03/05/22 22:00 Last Admin: 03/05/22 21:59 Dose: 91 ml Documented By: MARISSA Morphine Sulfate (Morphine Sulfate 2 Mg/Ml Carp) 2 mg IV NOW STA Stop: 03/05/22 23:51 Last Admin: 03/05/22 23:57 Dose: 2 mg Documented By: LIUDMILA Ondansetron HCl (Ondansetron Inj 2 Mg/Ml 2 Ml Vial) 4 mg IV NOW STA Stop: 03/05/22 23:51 Last Admin: 03/05/22 23:57 Dose: 4 mg Documented By: LIUDMILA Medical Decision Making Medical Records Attestation: I reviewed the patient's medical records. Home Medications Current Medication List: was personally reviewed by me Laboratory Data Attestation: I reviewed the patient's lab results. Result diagrams: 03/05/22 20:45 03/05/22 20:45 Lab Results 03/05/22 03/05/22 03/05/22 Range/Units 20:45 20:45 20:45 WBC 7.97 (4.8-10.8) K/ul RBC 4.36 (3.93-5.22) M/uL Hgb 13.9 (12.0-16.0) g/dl Hct 40.9 (34.1-44.9) % MCV 93.8 (80.0-100.0) fL MCH 31.9 (25.0-34.0) pg MCHC 34.0 (32.0-36.0) g/dL RDW Std Deviation 44.7 (36.4-46.3) fL RDW Coeff of Minda 13.1 (11.5-14.5) % Plt Count 270 (130-400) K/uL MPV 10.4 (9.4-12.3) fL Immature Gran % (Auto) 0.3 % Neut % (Auto) 53.8 % Lymph % (Auto) 30.6 % [place] % (Auto) 11.0 % Eos % (Auto) 3.8 % Baso % (Auto) 0.5 % Neut # (Auto) 4.29 (1.4-6.5) K/uL Lymph # (Auto) 2.44 (1.2-3.4) K/uL [place] # (Auto) 0.88 H (0.24-0.82) K/uL Eos # (Auto) 0.30 (0-0.50) K/uL Baso # (Auto) 0.04 (0-0.2) K/uL Immature Gran # (Auto) 0.02 (0.00-0.02) K/uL PT 10.0 (9.0-12.0) Seconds INR 0.9 (0.9-1.1) APTT 24.3 (21.0-31.0) Seconds PTT Ratio 0.9 Sodium 140 (136-145) mmol/L Potassium 3.5 (3.5-5.1) mmol/L Chloride 104 (98-107) mmol/L Carbon Dioxide 26 (21-32) mmol/L Anion Gap 10 (3-11) BUN 22 (6-23) mg/dl Creatinine 0.81 (0.6-1.2) mg/dl Est Cr Clr Drug Dosing Not Reportable Est GFR ( Amer) 76.8 ml/min Est GFR (Non-Af Amer) 66.2 ml/min BUN/Creatinine Ratio 27.2 H (10-20) Glucose 81 (70-99(Fasting)) mg/dl Calcium 9.9 (8.5-10.1) mg/dl Total Bilirubin 0.5 (0.2-1.0) mg/dl AST 22 (13-39) U/L ALT 14 (7-52) U/L Alkaline Phosphatase 58 (34-104) U/L Troponin I High Sens 5.9 (0-14) pg/ml Total Protein 7.6 (6.0-8.3) gm/dl Albumin 4.2 (3.4-5.0) gm/dl Globulin 3.4 (2.5-4.0) gm/dl Albumin/Globulin Ratio 1.2 (0.9-2) Lipase (11-82) U/L 03/05/22 03/05/22 Range/Units 23:17 23:17 WBC (4.8-10.8) K/ul RBC (3.93-5.22) M/uL Hgb (12.0-16.0) g/dl Hct (34.1-44.9) % MCV (80.0-100.0) fL MCH (25.0-34.0) pg MCHC (32.0-36.0) g/dL RDW Std Deviation (36.4-46.3) fL RDW Coeff of Minda (11.5-14.5) % Plt Count (130-400) K/uL MPV (9.4-12.3) fL Immature Gran % (Auto) % Neut % (Auto) % Lymph % (Auto) % [place] % (Auto) % Eos % (Auto) % Baso % (Auto) % Neut # (Auto) (1.4-6.5) K/uL Lymph # (Auto) (1.2-3.4) K/uL [place] # (Auto) (0.24-0.82) K/uL Eos # (Auto) (0-0.50) K/uL Baso # (Auto) (0-0.2) K/uL Immature Gran # (Auto) (0.00-0.02) K/uL PT (9.0-12.0) Seconds INR (0.9-1.1) APTT (21.0-31.0) Seconds PTT Ratio Sodium (136-145) mmol/L Potassium (3.5-5.1) mmol/L Chloride (98-107) mmol/L Carbon Dioxide (21-32) mmol/L Anion Gap (3-11) BUN (6-23) mg/dl Creatinine (0.6-1.2) mg/dl Est Cr Clr Drug Dosing Est GFR ( Amer) ml/min Est GFR (Non-Af Amer) ml/min BUN/Creatinine Ratio (10-20) Glucose (70-99(Fasting)) mg/dl Calcium (8.5-10.1) mg/dl Total Bilirubin (0.2-1.0) mg/dl AST (13-39) U/L ALT (7-52) U/L Alkaline Phosphatase (34-104) U/L Troponin I High Sens 6.6 (0-14) pg/ml Total Protein (6.0-8.3) gm/dl Albumin (3.4-5.0) gm/dl Globulin (2.5-4.0) gm/dl Albumin/Globulin Ratio (0.9-2) Lipase 26 (11-82) U/L Imaging Data Attestation: I personally reviewed and interpreted this imaging study as follows: Radiologist's Impression: Abdomen/Pelvis CT 03/05/22 21:43 CT abd pelvis IV con only CLINICAL HISTORY: upper/mid abd pain TECHNIQUE: Helical axial images of the abdomen and pelvis were obtained and displayed. Automated dose lowering techniques and/or adjustment according to patient size were utilized for this exam. This exam was performed with intravenous contrast. CT DOSE: 243.57 mGy.cm COMPARISON: Comparison is made to CT abdomen pelvis 12/02/2015 FINDINGS: Lower chest: Bibasilar atelectasis versus scarring is seen. Liver: Hepatic cysts are seen. Gallbladder and biliary tree: Cholelithiasis is seen including stones in the gallbladder neck. The gallbladder wall is prominent measuring approximately 3 mm in diameter. There is dilation of the common bile duct measuring up to 8 mm. A calcific stone is noted in the distal common bile duct. Pancreas: Unremarkable, no focal lesions. Spleen: Unremarkable. Adrenals: Unremarkable. Kidneys and ureters: Unremarkable. Bladder: Unremarkable. Reproductive organs: Unremarkable. Bowel: Diverticulosis is seen without evidence of diverticulitis. The appendix is normal. Lymph nodes Retroperitoneal: Unremarkable. Pelvic: Unremarkable. Mesenteric: Unremarkable. Peritoneum: Normal. Vessels: Atherosclerotic calcifications are seen. Abdominal wall: Unremarkable. Bones: Degenerative changes in the visualized spine. IMPRESSION: Choledocholithiasis is seen with associated dilation of the common bile duct. There is thickening of the gallbladder wall which may reflect a secondary cholecystitis. Cholelithiasis is seen. ACT 112: Negative or not required by law. Electronically signed by: Paul Porter M.D. 03/05/2022 10:58 PM Gallbladder Ultrasound 03/05/22 21:43 US gallbladder CLINICAL HISTORY: epi pain TECHNIQUE: Multiple real-time sonographic images of the right upper quadrant were obtained. Comparison: Comparison is made to CT abdomen pelvis 03/05/2022 FINDINGS: The liver is diffusely homogenous with normal contour and echogenicity. Multiple hepatic cysts are seen measuring up to 2.4 cm. No intrahepatic ductal dilatation is seen. Linear hyperechoic foci with posterior shadowing are identified layering dependently within the gallbladder, which are consistent with gallstones. The gallbladder wall is not thickened. There is no perich olecystic fluid present. A sonographic Jovel's sign was not elicited by the custom dressmaker. The common duct measures 1.1 cm in diameter at the level of the hepatic artery. The visualized portions of the pancreas appear normal. The right kidney shows normal echogenicity, cortical thickness and renal contour. The right kidney shows no evidence of hydronephrosis or mass. No ascites or free fluid is seen in Matthews's pouch. IMPRESSION: Marked dilation of the common bile duct measuring 1.1 cm in diameter compatible with choledocholithiasis seen on CT abdomen pelvis. Multiple stones are seen in the gallbladder without evidence of cholecystitis. ACT 112: Negative or not required by law. Electronically signed by: Paul Porter M.D. 03/05/2022 11:05 PM [facility] Narrative Prior records/ancillary studies reviewed. Triage Nursing notes reviewed. Additional history obtained from family. The patient's history was concerning for abdominal pain. Differential diagnosis: Etiologies such as appendicitis, diverticulitis, PUD, biliary pathology, UTI, pancreatitis, obstruction, mesenteric ischemia, aortic pathology, infections, inflammatory bowel disease, renal colic, as well as others were entertained. Physical examination findings: As above. ER treatment provided: An order was placed for continuous cardiac monitoring. The monitor shows a rate of 60-100 with a sinus rhythm. Tylenol, morphine, Zofran, Zosyn On reassessment the patient felt better. Diagnostics interpreted by me: ECG: Ordered for upper abdominal pain EKG: Normal sinus, normal intervals, no acute ST-T changes. Impression normal sinus rhythm interpreted by myself I think arrhythmia is unlikely. EKG shows normal sinus rhythm with no interval abnormalities such as QT prolongation or WPW. There are no findings to suggest B rugada syndrome. Cardiac monitoring in the emergency department reveals no tachycardic or bradycardic dysrhythmia. Hypertrophic cardiomyopathy was considered but there are no clear historical elements pointing toward this. EKG is not suggestive. The QRS voltage is not extremely large and there are no suggestive Q waves. The labs revealed normal LFTs. Negative troponin Normal lipase HEART SCORE: Hx: high/mod/low suspicion: 0 ECG: ST depression/nonspecific changes/normal: 0 Age: Greater than 65/45-64/less than 45: 2 Risk factors: (Hypertension, hyperlipidemia, diabetes, coronary disease, tobacco use, cocaine use): 1 Troponin: Greater than 2 times normal limits/1-2 times normal limits/normal: 0 Total: 3 Imaging studies: As above Consultation: A consultation was placed with the hospitalist. The case was discussed and diagnostics were reviewed. The patient was evaluated in the ER for further treatment. Exam and history seem consistent with choledocholithiasis. Medicine is c onsulted. Surgery was consulted. Patient was evaluated for admission. Normal LFTs. Negative troponin. Patient started on antibiotics. Stable labs. She was afebrile nontoxic. By the evaluation outlined above emergent etiologies such as appendicitis, diverticulitis, PUD, UTI, pancreatitis, obstruction, mesenteric ischemia, aortic pathology, infections, inflammatory bowel disease, renal colic, as well as others were deemed relatively unlikely. The pt informed about the findings as listed above. All questions were answered and pleased with the treatment. The chart was completed utilizing [employer] voice recognition software. Grammatical errors, random word insertions, pronoun errors, and incomplete sentences are an occassional consequence of this system due to software limitations, ambient noise, and hardware issues. Any formal questions or concerns about the content, text, or information contained within the body of this dictation should be directly addressed to the physician assistant professor of mathematics for clarification. Impression & Plan Choledocholithiasis, Cholelithiasis, Acute upper abdominal pain Discharge Plan Visit Data Chief Complaint: Chest Pain Stated Complaint: CHEST PAIN ED Provider: Diego Carreon ED Midlevel Provider: Gill Mobley Discharge Problem: Choledocholithiasis, Cholelithiasis, Acute upper abdominal pain Patient Disposition: Admitted As Inpatient Condition: Good Forms Stand Alone Forms: [facility] Prescriptions Prescriptions: No Action aspirin 81 mg tablet,delayed release (DR/EC) 81 mg PO DAILY Qty: 30 2RF rosuvastatin 5 mg tablet 5 mg PO DAILY Qty: 90 3RF cholecalciferol (vitamin D3) 25 mcg (1,000 unit) capsule 25 mcg PO DAILY Qty: 30 0RF calcium carbonate [Calcium 600] 600 mg calcium (1,500 mg) tablet 600 mg PO DAILY vitamin B complex [B Complex-Vitamin B12] Tablet 1 tab PO DAILY triamcinolone acetonide 0.1 % cream 1 applic topical BID Qty: 15 0RF diclofenac sodium 1 % gel 2 g topical QID Qty: 100 1RF Rx Instructions: apply to affected joint metoprolol succinate 25 mg capsule,sprinkle,ER 24hr 25 mg PO DAILY amlodipine 2.5 mg tablet 2.5 mg PO DAILY Referrals Referrals: Selena Bloom MD [Primary Care Provider] -
[2022-03-06] MEDS ORDERED: ONDANSETRON INJ 2 MG/ML 2 ML VIAL IV PRN (02:16)
[2022-03-06] MEDS ORDERED: HYDROmorphone INJ 0.5 MG/0.5 ML SYR IV PRN (02:16)
[2022-03-06] MEDS: SODIUM CHLORIDE 0.9% 1000ML 1,000 ML IV SCH ×2 (02:42→20:16)
[2022-03-06] MEDS: MoRPHine SULFATE 2 MG/ML CARP IV PRN (02:42)
--- NOTE | 2022-03-06 05:13 | Surgery Progress Note ---
Date of Service March 06, 2022 Assessment & Plan (1) Cholelithiasis: (2) Choledocholithiasis: Plan: It appears on imaging the patient has cholelithiasis as well as choledocholithiasis. We recommend proceeding as follows: Continue analgesics Continue antiemetics Continue IV fluid for hydration Maintain n.p.o. status Continue antibiotics in the form of Zosyn Due to concern for choledocholithiasis gastroenterology consultation has been requested. We await their input to see if they feel additional abdominal imaging or ERCP should be performed. It appears that the patient would benefit from cholecystectomy and timing of this will be dependent on recommendations from gastroenterology Admission and Anticipated Discharge Date Admission Date: March 05, 2022 Supervising Physician Co-Signing Physician Notes As per Edis Brock physician outpatient physical therapist assistant No abdominal findings this morning abdomen completely benign subjectively no pain Awaiting evaluation by gastroenterology pending their schedule for ERCP we will proceed with laparoscopic cholecystectomy before or after Procedure was discussed with the patient Subjective Patient is resting in bed. At the present time she notes abdominal pain is tolerable and less severe than what she noted at time of admission. She denies any nausea or vomiting. Physical Exam Gastrointestinal (Abdomen): Abdomen is soft and nondistended. Bowel sounds are present. There is minimal pain with palpation at this time. Results & Data ([facility]) Vital Signs (Past 12 Hours) Vital Signs Temp Pulse Pulse Resp BP BP Pulse Ox 03/06/22 02:00 36.4 C L 69 18 123/69 98 03/06/22 01:56 36.4 C L 69 18 123/69 98 03/06/22 01:00 72 18 162/77 H 97 03/05/22 23:44 76 18 189/77 H 97 03/05/22 22:04 80 17 157/88 H 98 03/05/22 20:36 36.4 C L 83 18 172/85 H 98 O2 Del Method 03/06/22 02:00 Room Air 03/06/22 01:56 Room Air 03/06/22 01:00 Room Air 03/05/22 23:44 Room Air 03/05/22 22:04 Room Air 03/05/22 20:36 Room Air PG Care Time/CCT Total # of Minutes Spent Total Time Spent with Patient: Total time spent is greater than 50% in coordination of care (as documented) at patient's floor/unit and/or counseling patient: Coding Level of Care Code 55876 Subseq Hosp Care Lvl 1 Diagnoses Cholelithiasis K80.20 Choledocholithiasis K80.50
[2022-03-06] MEDS: PIPERACILLIN/TAZOBACTAM 3.375 GM in DEXTROSE 5% 100 ML IV SCH ×3 (06:41→22:01)
--- NOTE | 2022-03-06 07:16 | Electrocardiogram Report ---
Test Reason : Blood Pressure : / mmHG Vent. Rate : 080 BPM Atrial Rate : 080 BPM P-R Int : 168 ms QRS Dur : 072 ms QT Int : 382 ms P-R-T Axes : 063 035 066 degrees QTc Int : 440 ms Normal sinus rhythm Normal ECG When compared with ECG of 25-FEB-2022 13:44, QT has lengthened Confirmed by Thomas Jack ([id number]) on 03/06/2022 7:16:02 AM Referred By: REFERRED SELF Confirmed By:Mc Jack
--- NOTE | 2022-03-06 07:23 | Hospitalist Progress Note ---
Date of Service March 06, 2022 Assessment & Plan (1) Choledocholithiasis: Plan: Choledocholithiasis - Presenting with acute-onset upper abdominal pain. - US Gallbladder and CT A&P w/ evidence of choledocholithiasis, thickening of gallbladder, gallstones present in gallbladder w/o evidence of cholecystitis. - Patient started on Zosyn empirically. - GI consulted for possible ERCP. - Gen Surgery consulted - Continue Zosyn, NPO, IV fluids, analgesics, anti-emetics. - Due to concern for choledocholithiasis, awaiting GI input on potential ERCP before proceeding with cholecystectomy. - NPO w/ mIVF @ 80cc/hr - Pain: Morphine 2mg IV q2h PRN > Dilaudid 0.25mg IV breakthrough. - Trend LFTs HTN, HLD: - Continue home amlodipine, metoprolol, rosuvastatin, ASA 81mg. Diet: NPO while awaiting possibility of ERCP or surgery DVT Prophylaxis: SCDs Code status: Full code Dispo: Med/Surg, awaiting possible ERCP or surgery. (2) Hypertension: Admission and Anticipated Discharge Date Admission Date: March 05, 2022 Supervising Physician Co-Signing Physician Notes Resident Physician Supervision Note: I independently interviewed and examined the patient and verified the del a paz history and physical, reviewed labs and image studies and agree with resident findings and care plan. Subjective Patient seen at the bedside this morning feeling well. Patient states that she had one episode of vomiting last night when she was transferred from ER to the current room but other than that time has not had any nausea. She denies any current abdominal pain, fevers, chills, headache. Review of Systems Review of Systems: as per HPI Physical Exam Constitutional: WD/WN, vitals as above Eyes: PERRL, conjunctivae normal, anicteric sclerae Respiratory: normal respiratory effort, lungs clear to auscultation Cardiovascular: RRR, no murmur, no edema Gastrointestinal (Abdomen): normal bowel sounds, soft, nontender, no hepatosplenomegaly Psychiatric: A+Ox3, euthymic affect Results & Data Results & Data ([facility]) Vital Signs (Past 12 Hours) Vital Signs Temp Pulse Pulse Resp BP BP Pulse Ox 03/06/22 06:45 36.5 C 66 18 130/74 96 03/06/22 02:00 36.4 C L 69 18 123/69 98 03/06/22 01:56 36.4 C L 69 18 123/69 98 03/06/22 01:00 72 18 162/77 H 97 03/05/22 23:44 76 18 189/77 H 97 03/05/22 22:04 80 17 157/88 H 98 03/05/22 20:36 36.4 C L 83 18 172/85 H 98 O2 Del Method 03/06/22 06:45 03/06/22 02:00 Room Air 03/06/22 01:56 Room Air 03/06/22 01:00 Room Air 03/05/22 23:44 Room Air 03/05/22 22:04 Room Air 03/05/22 20:36 Room Air Resident Activity Tracking Resident Involvement: Resident Care Provided Care Provided: Adult Hospital Medicine
[2022-03-06 08:16] LABS: Basophils # (auto) 0.04 K/uL (0-0.2); Basophils % (auto) 0.6 %; Eosinophils % (auto) 1.4 %; Hematocrit (blood only) 39.2 % (34.1-44.9); Hemoglobin 12.8 g/dl (12.0-16.0); Immature Granulocytes # (auto) 0.02 K/uL (0.00-0.02); Immature Granulocytes % (auto) 0.3 %; Lymphocytes # (auto) 0.98 K/uL (1.2-3.4); Lymphocytes % (auto) 13.9 %; Mean Corpuscular Hemoglobin 31.4 pg (25.0-34.0); Mean Corpuscular Hgb Conc 32.7 g/dL (32.0-36.0); Mean Corpuscular Volume 96.1 fL (80.0-100.0); Mean Platelet Volume 10.1 fL (9.4-12.3); Monocytes # (auto) 0.59 K/uL (0.24-0.82); Monocytes % (auto) 8.4 %; Neutrophils # (auto) 5.32 K/uL (1.4-6.5); Neutrophils % (auto) 75.4 %; Platelet Count 237 K/uL (130-400); RDW Standard Deviation 46.1 fL (36.4-46.3); Red Blood Count 4.08 M/uL (3.93-5.22); White Blood Count 7.05 K/ul (4.8-10.8)
[2022-03-06] MEDS: ROSUVASTATIN CALCIUM 5 MG TAB PO SCH (08:40)
[2022-03-06] MEDS: METOPROLOL SUCC 25MG EXT REL TAB PO SCH (08:40)
[2022-03-06] MEDS: amLODIPine BESYLATE 5 MG TAB PO SCH ×3 (08:40→20:17)
[2022-03-06] MEDS ORDERED: ASPIRIN 81 MG ECTAB PO SCH (09:00)
[2022-03-06] MEDS ORDERED: PNEUMOCOCCAL Polysaccharide Vaccine 25mcg/0.5mL vial/Syr IM ONE (09:00)
[2022-03-06 09:14] LABS: Albumin Globulin Ratio 1.6 (0.9-2); Albumin Level 3.9 gm/dl (3.4-5.0); BUN Creatinine Ratio 21.4 (10-20); Bilirubin,Total 0.5 mg/dl (0.2-1.0); Calcium 8.9 mg/dl (8.5-10.1); Creatinine Clr Calc Pharmacy 48.6 ml/min; Est GFR (African American) 91.6 ml/min; Globulin 2.5 gm/dl (2.5-4.0); Potassium 4.1 mmol/L (3.5-5.1); Total Protein 6.4 gm/dl (6.0-8.3)
[2022-03-06] MEDS ORDERED: Nursing to Pharmacy Communication SCH (09:45)
--- NOTE | 2022-03-06 13:36 | Billing Data ---
Date of Service March 06, 2022 Coding Level of Care Code 21933 Initial Inpt Care Lvl 3
--- NOTE | 2022-03-06 15:56 | Consultation Report ---
DATE OF SERVICE: 03/06/2022 GASTROENTEROLOGY CONSULTATION RACE: . ATTENDING PHYSICIAN: Dr. Mosley. CONSULTING PHYSICIAN: Dr. Jackson. REASON FOR CONSULTATION: Choledocholithiasis, questionable need for ERCP. 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 She subsequentl y underwent lab testing, which showed a normal white blood cell count of 7.97 and her liver panel isamar wed normal AST of 22, ALT of 14, alkaline phosphatase of 58 and a total bilirubin of 0.5. She underw ent a CT scan of the abdomen and pelvis, which noted choledocholithiasis seen with associated dilatio n of the common bile duct and thickening of the gallbladder wall and cholelithiasis was seen. She leggett bsequently underwent a gallbladder ultrasound and was noted to have marked dilation of the common sharif e duct at 1.1 cm and multiple stones were seen within the gallbladder without evidence of cholecystit is. She was subsequently admitted and placed on Zosyn 3.375 grams IV q.8 hours and given IV morphine therapy to control her pain and was placed on IV fluids with normal saline at 80 mL per hour. At th e time I saw the patient this morning, she did note an improvement in her abdominal pain, stating giorgi t the pain is now approximately 3/10 in intensity. It is not radiating, though it is noted to be in the epigastric region. She has had no further nausea or vomiting. Laboratory panel from this mornin g did show a rise in her AST to 218 and her ALT to 141, which were normal upon arrival. Of note, her lipase level was 26. She denies any current fevers, chills, nausea, vomiting, hematemesis, melena, hematochezia, dysphagia, odynophagia or heartburn symptoms. She denies any NSAID therapy at home, bu t does take Tylenol occasionally. She denies any further complaints. PAST MEDICAL HISTORY: Significant for eczema of the lower extremities, hypertension, vitamin B12 def iciency, bronchiectasis, bilateral hip pain, lumbar degenerative disk disease, vitamin D deficiency. PAST SURGICAL HISTORY: Includes a history of elbow surgery, though no abdominal surgeries noted. ALLERGIES: CODEINE. MEDICATIONS: At present include Tylenol 650 mg p.o. q.4, Norvasc 2.5 mg p.o. at bedtime, aspirin 81 mg p.o. daily, hydromorphone 0.25 mg IV q.6 p.r.n., metoprolol 25 mg p.o. daily, morphine 2 mg IV q.3 p.r.n. pain, Zofran 4 mg IV q.6 p.r.n., Zosyn 3.375 grams IV q.8 hours, Crestor 5 mg p.o. daily. SOCIAL HISTORY: She is and lives with her . She denies any tobacco. She does have a n occasional alcoholic beverage 2-3 times per week. She denies any illicit drug use. FAMILY HISTORY: Negative for GI malignancy or inflammatory bowel disease. REVIEW OF SYSTEMS: Negative x12 systems review other than pertinent positives listed in the HPI. PHYSICAL EXAMINATION: VITAL SIGNS: Today include a temperature of 36.5, pulse 66, respirations 18, blood pressure 130/74, pulse ox 96% on room air. GENERAL: She is awake, alert, oriented x3, cooperative, in no acute distress. HEAD: Normocephalic, atraumatic. EYES: Pupils equal, round. Extraocular muscles are intact. ENT: External evaluation of ears and nose are normal. Oropharynx is clear. NECK: Soft, supple. CHEST: Clear to auscultation bilaterally. CARDIOVASCULAR: Regular rate and rhythm. ABDOMEN: Soft, tender in the midepigastric and right upper quadrant region, nondistended. There are positive bowel sounds. There is no appreciable hepatosplenomegaly. EXTREMITIES: No clubbing, cyanosis or edema. LABORATORY STUDIES AND RADIOGRAPHIC STUDIES: Reviewed in the HPI. IMPRESSION: This is an 86-year-old female presenting with abdominal pain, nausea, vomiting , subsequently found to have cholelithiasis as well as choledocholithiasis on imaging. PLAN: I did discuss this case in detail with Dr. Margarita Mccullough who recommended that the patient undergo ERCP on 03/07/2022. She will be given clear liquids today. She will be kept n.p.o. after mid night and she will undergo ERCP tomorrow with Dr. Mccullough. I would recommend continuing her on IV Zosyn therapy at present and Dr. Mccullough will make further recommendations following the above-no dori testing. I did discuss this in detail with the patient as well as her family that was at the bed side and they were in agreement with this plan. I appreciate surgery's input and Dr. Mccullough will arrange with surgery regarding the need for cholecystectomy following the above-noted ERCP. Once again, thanks for allowing me to participate in the care of this patient. If you have any furth er questions, please do not hesitate in contacting me. Job ID: [id number]
[2022-03-07] MEDS: PIPERACILLIN/TAZOBACTAM 3.375 GM in DEXTROSE 5% 100 ML IV SCH ×3 (05:15→21:50)
--- NOTE | 2022-03-07 07:20 | Anesthesiology Consultation ---
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 History Surgery Operation Date: 03/07/22 11:25 Proposed Procedures p Endoscopic Retrograde Cholangiopancreato - Margarita Mccullough MD Height/Weight Height: 5 ft 3 in Weight: 55.1 kg Allergies Allergy/AdvReac Type Severity Reaction Status Date / Time codeine AdvReac Unknown VOMITTING Verified 03/06/22 00:27 Medications Home Medications Medication Instructions Recorded Confirmed Last Taken aspirin 81 mg tablet,delayed 81 mg PO DAILY #30 tabs 08/01/19 03/06/22 Unknown release rosuvastatin 5 mg tablet 5 mg PO DAILY #90 tabs 08/01/19 03/06/22 Unknown metoprolol succinate 25 mg capsule 25 mg PO DAILY 06/23/20 03/06/22 Unknown sprinkle, ext. release 24 hr cholecalciferol (vitamin D3) 25 25 mcg PO DAILY #30 caps 06/24/20 03/06/22 Unknown mcg (1,000 unit) capsule amlodipine 2.5 mg tablet 2.5 mg PO DAILY 06/28/21 03/06/22 Unknown calcium carbonate 600 mg calcium 600 mg PO DAILY 11/24/21 03/06/22 Unknown (1,500 mg) tablet (Calcium) vitamin B complex (B 1 tab PO DAILY 11/24/21 03/06/22 Unknown Complex-Vitamin B12 tablet) Active Medications Generic Name Dose Route Start Last Admin Trade Name Freq PRN Reason Stop Dose Admin Amlodipine Besylate 2.5 mg 03/06/22 21:00 03/06/22 20:17 Amlodipine Besylate 5 Mg Tab PO 04/05/22 20:59 2.5 mg HS BRENNON Administration Aspirin 81 mg 03/06/22 09:00 03/06/22 08:41 Aspirin 81 Mg Ectab PO 04/05/22 08:59 81 mg DAILY BRENNON Administration Piperacillin Sod/Tazobactam 115 mls @ 28.75 mls/hr 03/06/22 06:00 03/07/22 05:15 Sod 3.375 gm/ Dextrose IV 03/16/22 05:59 28.8 mls/hr Q8H BRENNON Administration Protocol Sodium Chloride 1,000 mls @ 80 mls/hr 03/06/22 02:16 03/06/22 20:16 Nss 1000ml IV 04/05/22 02:15 80 mls/hr .[id number] BRENNON Administration Metoprolol Succinate 25 mg 03/06/22 09:00 03/06/22 08:40 Metoprolol Succ 25mg Ext Rel Tab PO 04/05/22 08:59 25 mg DAILY BRENNON Administration Morphine Sulfate 2 mg 03/06/22 02:16 03/06/22 02:42 Morphine Sulfate 2 Mg/Ml Carp IV 03/20/22 02:15 2 mg Q3H PRN Administration Moderate-Severe Pain (first) Rosuvastatin Calcium 5 mg 03/06/22 09:00 03/06/22 08:40 Rosuvastatin Calcium 5 Mg Tab PO 04/05/22 08:59 5 mg DAILY BRENNON Administration Past Medical History Medical History Chest pain Diverticulosis of colon Excessive cerumen in left ear canal Impacted cerumen of both ears PPD positive Negative blood test for TB 2019 Right hip pain Past Family History Family History Sister Lung cancer Mother Stroke Brother Stroke Other Cancer Heart disease Tuberculosis Denies family history of Ovarian cancer Prostate cancer Myocardial infarction Breast cancer Colorectal cancer Past Surgical History Surgical History H/O elbow surgery Social History Smoking Status: Never smoker Hx Alcohol Use: Yes Alcohol type: wine alcohol intake frequency: a few times a month Hx Substance Use: No Physical Exam Vital Signs Last Vital Signs Temp 97.9 F 03/07/22 07:04 Pulse 59 L 03/07/22 07:04 Resp 16 03/07/22 07:04 BP 134/70 03/07/22 07:04 Pulse Ox 97 03/07/22 07:04 O2 Del Method 03/07/22 07:04 Testing Laboratory Results 03/06/22 07:47 03/06/22 07:47 PT 10.0 Seconds (9.0-12.0) 03/05/22 20:45 INR 0.9 (0.9-1.1) 03/05/22 20:45 APTT 24.3 Seconds (21.0-31.0) 03/05/22 20:45 Electrocardiogram Date: 03/05/22 Normal sinus rhythm, rate 80 bpm Normal ECG When compared with ECG of 25-FEB-2022 13:44, QT has lengthened Confirmed by Thomas Jack ([id number]) on 03/06/2022 7:16:02 AM Chest X-Ray Date: 02/25/22 IMPRESSION: 1. No acute process. 2. Bronchiectasis with scattered reticulonodular opacities are redemonstrated compatible with a chronic infectious or inflammatory pneumonitis such as nontuberculous mycobacterium. Echocardiogram Date: 07/01/19 Normal biventricular systolic function Normal chamber dimensions No significant valvular abnormalities Cervical Spine Date: 07/09/19 FINDINGS: The cervical spine is visualized from C1 through the superior endplate of T1. There is no fracture. No subluxation. Straightening of the cervical spine. Mild disc space narrowing at C3-C4. Moderate disc space narrowing at C4- C5 and C5-C6. Severe disc space narrowing at C6-C7. There are small endplate osteophytes within the mid to lower cervical spine. Moderate facet degenerative changes throughout the cervical spine. Prevertebral soft tissues and the atlantodens interval are intact. IMPRESSION: No fracture or subluxation within the cervical spine. Moderate to severe deg enerative changes as described above.
--- NOTE | 2022-03-07 07:50 | Hospitalist Progress Note ---
Date of Service March 07, 2022 Assessment & Plan (1) Choledocholithiasis: Plan: Choledocholithiasis - Presenting with acute-onset upper abdominal pain. - US Gallbladder and CT A&P w/ evidence of choledocholithiasis, thickening of gallbladder, gallstones present in gallbladder w/o evidence of cholecystitis. - Patient started on Zosyn empirically. - GI consulted for ERCP performed 03/07, 1 stone removed stent placed - Gen Surgery consulted - Continue Zosyn, NPO, IV fluids, analgesics, anti-emetics. - Due to concern for choledocholithiasis, awaiting GI input on potential ERCP before proceeding with cholecystectomy. - NPO w/ mIVF @ 80cc/hr - Pain: Morphine 2mg IV q2h PRN > Dilaudid 0.25mg IV breakthrough. - Trend LFTs HTN, HLD: - Continue home amlodipine, metoprolol, rosuvastatin, ASA 81mg. Diet: NPO s/p ERCP, may consider clear liquid diet with NPO midnight DVT Prophylaxis: SCDs Code status: Full code Dispo: Med/Surg (2) Hypertension: Admission and Anticipated Discharge Date Admission Date: March 05, 2022 Supervising Physician Co-Signing Physician Notes I personally examined the patient and verified all [place] pa[place] points of history and exam, discussed case, and agree with decision making with Dr Viveros. Awaiting ERCP. No pain no nausea. No complaints at this time. Vitals noted, in general she is awake and alert pleasant no distress. HEENT normocephalic atraumatic mucous membranes moist. Breathing unlabored no accessory muscle use good effort. Skin shows no rashes no pallor or icterus. Neuro without focal deficits. CholedocholithiasisERCP shortly. Continue supportive care. Continue Zosyn. Otherwise as above Subjective Patient seen at bedside, calm comfortable cooperative. She has been NPO since midnight, understands she is getting ERCP today. Denies nausea abd pain SOB fever. Review of Systems Review of Systems: Negative fever chills Negative headache dizziness Negative chest pain palpitations SOB Negative nausea vomitting diarrhea constipation Negative numbness tingling rash swelling Physical Exam Constitutional: WD/WN, vitals as above Eyes: PERRL, conjunctivae normal, anicteric sclerae ENMT: external ear and nose normal, oropharynx normal Neck: trachea midline, no thyromegaly Respiratory: normal respiratory effort, lungs clear to auscultation Cardiovascular: Rate/Rhythm: regular rate and regular rhythm Gastrointestinal (Abdomen): Inspection/Auscultation: abdomen normal to inspection Percussion/Palpation: abdomen soft; abdomen nontender Skin: no rashes, warm and dry Results & Data Results & Data ([facility]) Vital Signs (Past 12 Hours) Vital Signs Temp Pulse Resp BP Pulse Ox O2 Del Method 03/07/22 07:04 36.6 C 59 L 16 134/70 97 Room Air 03/06/22 23:45 36.4 C L 66 16 138/55 L 94 Room Air 03/06/22 20:14 36.6 C 61 16 149/78 H 94 Room Air Diagnostic Findings Laboratory Results WBC 4.35 K/ul (4.8-10.8) L 03/07/22 07:01 RBC 3.79 M/uL (3.93-5.22) L 03/07/22 07:01 Hgb 12.0 g/dl (12.0-16.0) 03/07/22 07:01 Hct 37.0 % (34.1-44.9) 03/07/22 07:01 MCV 97.6 fL (80.0-100.0) 03/07/22 07:01 MCH 31.7 pg (25.0-34.0) 03/07/22 07:01 MCHC 32.4 g/dL (32.0-36.0) 03/07/22 07:01 RDW Std Deviation 47.4 fL (36.4-46.3) H 03/07/22 07:01 RDW Coeff of Minda 13.3 % (11.5-14.5) 03/07/22 07:01 Plt Count 225 K/uL (130-400) 03/07/22 07:01 MPV 10.5 fL (9.4-12.3) 03/07/22 07:01 Immature Gran % (Auto) 0.2 % 03/07/22 07:01 Neut % (Auto) 56.9 % 03/07/22 07:01 Lymph % (Auto) 25.7 % 03/07/22 07:01 [place] % (Auto) 10.3 % 03/07/22 07:01 Eos % (Auto) 6.2 % 03/07/22 07:01 Baso % (Auto) 0.7 % 03/07/22 07:01 Neut # (Auto) 2.47 K/uL (1.4-6.5) 03/07/22 07:01 Lymph # (Auto) 1.12 K/uL (1.2-3.4) L 03/07/22 07:01 [place] # (Auto) 0.45 K/uL (0.24-0.82) 03/07/22 07:01 Eos # (Auto) 0.27 K/uL (0-0.50) 03/07/22 07:01 Baso # (Auto) 0.03 K/uL (0-0.2) 03/07/22 07:01 Immature Gran # (Auto) 0.01 K/uL (0.00-0.02) 03/07/22 07:01 PT 10.0 Seconds (9.0-12.0) 03/05/22 20:45 INR 0.9 (0.9-1.1) 03/05/22 20:45 APTT 24.3 Seconds (21.0-31.0) 03/05/22 20:45 PTT Ratio 0.9 03/05/22 20:45 Sodium 142 mmol/L (136-145) 03/07/22 06:58 Potassium 3.9 mmol/L (3.5-5.1) 03/07/22 06:58 Chloride 112 mmol/L (98-107) H 03/07/22 06:58 Carbon Dioxide 26 mmol/L (21-32) 03/07/22 06:58 Anion Gap 4 (3-11) 03/07/22 06:58 BUN 8 mg/dl (6-23) 03/07/22 06:58 Creatinine 0.72 mg/dl (0.6-1.2) 03/07/22 06:58 Est Cr Clr Drug Dosing 47.3 ml/min 03/07/22 06:58 Est GFR ( Amer) 88.5 ml/min 03/07/22 06:58 Est GFR (Non-Af Amer) 76.4 ml/min 03/07/22 06:58 BUN/Creatinine Ratio 11.1 (10-20) 03/07/22 06:58 Glucose 88 mg/dl (70-99(Fasting)) 03/07/22 06:58 Calcium 8.5 mg/dl (8.5-10.1) 03/07/22 06:58 Magnesium 2.1 mg/dl (1.7-2.4) 03/07/22 06:58 Total Bilirubin 0.6 mg/dl (0.2-1.0) 03/07/22 06:58 AST 52 U/L (13-39) H 03/07/22 06:58 ALT 72 U/L (7-52) H 03/07/22 06:58 Alkaline Phosphatase 54 U/L (34-104) 03/07/22 06:58 Troponin I High Sens 6.6 pg/ml (0-14) 03/05/22 23:17 Total Protein 6.0 gm/dl (6.0-8.3) 03/07/22 06:58 Albumin 3.6 gm/dl (3.4-5.0) 03/07/22 06:58 Globulin 2.4 gm/dl (2.5-4.0) L 03/07/22 06:58 Albumin/Globulin Ratio 1.5 (0.9-2) 03/07/22 06:58 Lipase 26 U/L (11-82) 03/05/22 23:17 SARS-CoV-2, RNA, NAAT NEGATIVE (NEGATIVE) 03/05/22 23:41 Impressions Abdomen/Pelvis CT 03/05/22 21:43 CT abd pelvis IV con only CLINICAL HISTORY: upper/mid abd pain TECHNIQUE: Helical axial images of the abdomen and pelvis were obtained and displayed. Automated dose lowering techniques and/or adjustment according to patient size were utilized for this exam. This exam was performed with intravenous contrast. CT DOSE: 243.57 mGy.cm COMPARISON: Comparison is made to CT abdomen pelvis 12/02/2015 FINDINGS: Lower chest: Bibasilar atelectasis versus scarring is seen. Liver: Hepatic cysts are seen. Gallbladder and biliary tree: Cholelithiasis is seen including stones in the gallbladder neck. The gallbladder wall is prominent measuring approximately 3 mm in diameter. There is dilation of the common bile duct measuring up to 8 mm. A calcific stone is noted in the distal common bile duct. Pancreas: Unremarkable, no focal lesions. Spleen: Unremarkable. Adrenals: Unremarkable. Kidneys and ureters: Unremarkable. Bladder: Unremarkable. Reproductive organs: Unremarkable. Bowel: Diverticulosis is seen without evidence of diverticulitis. The appendix is normal. Lymph nodes Retroperitoneal: Unremarkable. Pelvic: Unremarkable. Mesenteric: Unremarkable. Peritoneum: Normal. Vessels: Atherosclerotic calcifications are seen. Abdominal wall: Unremarkable. Bones: Degenerative changes in the visualized spine. IMPRESSION: Choledocholithiasis is seen with associated dilation of the common bile duct. There is thickening of the gallbladder wall which may reflect a secondary cholecystitis. Cholelithiasis is seen. ACT 112: Negative or not required by law. Electronically signed by: Paul Porter M.D. 03/05/2022 10:58 PM Gallbladder Ultrasound 03/05/22 21:43 US gallbladder CLINICAL HISTORY: epi pain TECHNIQUE: Multiple real-time sonographic images of the right upper quadrant were obtained. Comparison: Comparison is made to CT abdomen pelvis 03/05/2022 FINDINGS: The liver is diffusely homogenous with normal contour and echogenicity. Multiple hepatic cysts are seen measuring up to 2.4 cm. No intrahepatic ductal dilatation is seen. Linear hyperechoic foci with posterior shadowing are identified layering dependently within the gallbladder, which are consistent with gallstones. The gallbladder wall is not thickened. There is no pericholecystic fluid present. A sonographic Jovel's sign was not elicited by the alterations workroom clerk. The common duct measures 1.1 cm in diameter at the level of the hepatic artery. The visualized portions of the pancreas appear normal. The right kidney shows normal echogenicity, cortical thickness and renal contour. The right kidney shows no evidence of hydronephrosis or mass. No ascites or free fluid is seen in Matthews's pouch. IMPRESSION: Marked dilation of the common bile duct measuring 1.1 cm in diameter compatible with choledocholithiasis seen on CT abdomen pelvis. Multiple stones are seen in the gallbladder without evidence of cholecystitis. ACT 112: Negative or not required by law. Electronically signed by: Paul Porter M.D. 03/05/2022 11:05 PM Medications Administered Current Inpatient Medications Acetaminophen (Acetaminophen 325 Mg Tab) 650 mg PO Q4H PRN PRN Reason: pain/fever Stop: 04/04/22 23:32 Amlodipine Besylate (Amlodipine Besylate 5 Mg Tab) 2.5 mg PO HS BRENNON Stop: 04/05/22 20:59 Last Admin: 03/06/22 20:17 Dose: 2.5 mg Aspirin (Aspirin 81 Mg Ectab) 81 mg PO DAILY [facility] Stop: 04/05/22 08:59 Last Admin: 03/06/22 08:41 Dose: 81 mg Atropine Sulfate (Atropine Sulfate 0.1 Mg/Ml 10ml Syr) 0.5 mg IV Q1M PRN PRN Reason: PACU Use-HR<40 &/or Bradycardi Stop: 03/08/22 00:03 Ephedrine Sulfate (Ephedrine Sulfate 50 Mg/Ml Amp) 5 mg IV Q5M PRN PRN Reason: PACU Use Only-SBP<90 mmHg Stop: 03/08/22 00:03 Fentanyl Citrate (Fentanyl Citrate 100 Mcg/2 Ml Vial) 25 mcg IV Q5M PRN PRN Reason: PACU Use Only-Pain Stop: 03/08/22 00:03 Hydromorphone HCl (Hydromorphone Inj 0.5 Mg/0.5 Ml Syr) 0.25 mg IV Q6H PRN PRN Reason: Breakthrough Pain Stop: 03/20/22 02:15 Piperacillin Sod/Tazobactam (Sod 3.375 gm/ Dextrose) 115 mls @ 28.75 mls/hr IV Q8H [facility]; Protocol Stop: 03/16/22 05:59 Last Admin: 03/07/22 13:28 Dose: 28.8 mls/hr Sodium Chloride (Nss 1000ml) 1,000 mls @ 80 mls/hr IV .[id number] [facility] Stop: 04/05/22 02:15 Last Admin: 03/07/22 08:14 Dose: 80 mls/hr Labetalol HCl (Labetalol Hcl Iv 5 Mg/Ml 20ml) 5 mg IV Q5M PRN PRN Reason: PACU Use-SBP>160 or DBP>100 Stop: 03/08/22 00:03 Metoprolol Succinate (Metoprolol Succ 25mg Ext Rel Tab) 25 mg PO DAILY [facility] Stop: 04/05/22 08:59 Last Admin: 03/07/22 08:15 Dose: 25 mg Morphine Sulfate (Morphine Sulfate 2 Mg/Ml Carp) 2 mg IV Q3H PRN PRN Reason: Moderate-Severe Pain (first) Stop: 03/20/22 02:15 Last Admin: 03/06/22 02:42 Dose: 2 mg Ondansetron HCl (Ondansetron Inj 2 Mg/Ml 2 Ml Vial) 4 mg IV Q6H PRN PRN Reason: Nausea And Vomiting Stop: 04/05/22 02:15 Ondansetron HCl (Ondansetron Inj 2 Mg/Ml 2 Ml Vial) 4 mg IV ONCE PRN PRN Reason: PACU Use Only-Nausea/Vomiting Stop: 03/08/22 00:03 Phenylephrine HCl (Phenylephrine 100mcg/Ml 5ml Syr) 100 mcg IV Q5M PRN PRN Reason: PACU Use Only-SBP<90 or HR>70 Stop: 03/08/22 00:03 Rosuvastatin Calcium (Rosuvastatin Calcium 5 Mg Tab) 5 mg PO DAILY [facility] Stop: 04/05/22 08:59 Last Admin: 03/07/22 13:28 Dose: Not Given Resident Activity Tracking Resident Involvement: Resident Care Provided Care Provided: Adult Hospital Medicine
[2022-03-07] MEDS: SODIUM CHLORIDE 0.9% 1000ML 1,000 ML IV SCH ×2 (08:14→18:44)
[2022-03-07] MEDS: METOPROLOL SUCC 25MG EXT REL TAB PO SCH (08:15)
[2022-03-07 08:27] LABS: Albumin Globulin Ratio 1.5 (0.9-2); Albumin Level 3.6 gm/dl (3.4-5.0); BUN Creatinine Ratio 11.1 (10-20); Bilirubin,Total 0.6 mg/dl (0.2-1.0); Calcium 8.5 mg/dl (8.5-10.1); Creatinine Clr Calc Pharmacy 47.3 ml/min; Est GFR (African American) 88.5 ml/min; Est GFR (Non-African American) 76.4 ml/min; Globulin 2.4 gm/dl (2.5-4.0); Magnesium 2.1 mg/dl (1.7-2.4); Potassium 3.9 mmol/L (3.5-5.1)
[2022-03-07 08:42] LABS: Basophils # (auto) 0.03 K/uL (0-0.2); Basophils % (auto) 0.7 %; Eosinophils # (auto) 0.27 K/uL (0-0.50); Eosinophils % (auto) 6.2 %; Immature Granulocytes # (auto) 0.01 K/uL (0.00-0.02); Immature Granulocytes % (auto) 0.2 %; Lymphocytes # (auto) 1.12 K/uL (1.2-3.4); Lymphocytes % (auto) 25.7 %; Mean Corpuscular Hemoglobin 31.7 pg (25.0-34.0); Mean Corpuscular Hgb Conc 32.4 g/dL (32.0-36.0); Mean Corpuscular Volume 97.6 fL (80.0-100.0); Mean Platelet Volume 10.5 fL (9.4-12.3); Monocytes # (auto) 0.45 K/uL (0.24-0.82); Monocytes % (auto) 10.3 %; Neutrophils # (auto) 2.47 K/uL (1.4-6.5); Neutrophils % (auto) 56.9 %; Platelet Count 225 K/uL (130-400); RDW Coefficient of Variation 13.3 % (11.5-14.5); RDW Standard Deviation 47.4 fL (36.4-46.3); Red Blood Count 3.79 M/uL (3.93-5.22); White Blood Count 4.35 K/ul (4.8-10.8)
--- NOTE | 2022-03-07 09:56 | Gastroenterology Progress Note ---
Date of Service March 07, 2022 Assessment & Plan (1) Choledocholithiasis: Plan: 86 year old female with abdominal pain, nausea, vomiting, gallstones, choledocholithiasis and biliary dilation on Ct and US imaging scheduled for ERCP today. Risks/benefits and proceudre explained to pt and family, all questions answered NPO ERCP today CCY per general surgery Antiemetics PRN Analgesia PRN Continue ABX as recommended Thank you for allowing us to participate in the care of this patient. Please call with any acute changes, questions or concerns. Please see addendum below with additional recommendation from my supervising physician. Admission and Anticipated Discharge Date Admission Date: March 05, 2022 Supervising Physician Co-Signing Physician Notes I have seen and examined the patient and discussed the management with LEVI Salinas. Patient without abdominal pain, no acute complaints PE as above CBD with notable cbd stone, 8 mm dilation to cbd, bilirubin normal She is currently npo Family at bedside. Planning for ERCP this afternoon. Subjective Pt was seen, chart reviewed. Family at bedside. NPO for ERCP Notes she is feeling better, no pain x 1 day No nausea, vomiting. ABD US 2021: Marked dilation of the common bile duct measuring 1.1 cm in diameter compatible with choledocholithiasis seen on CT abdomen pelvis. Multiple stones are seen in the gallbladder without evidence of cholecystitis. CTAP 2021: Choledocholithiasis is seen with associated dilation of the common bile duct. There is thickening of the gallbladder wall which may reflect a secondary cholecystitis. Cholelithiasis is seen. Review of Systems Review of Systems: All systems reviewed & are unremarkable except as noted in HPI & below Physical Exam Constitutional: WD/WN, vitals as above Respiratory: normal respiratory effort, lungs clear to auscultation Cardiovascular: Rate/Rhythm: regular rate and regular rhythm Gastrointestinal (Abdomen): normal bowel sounds, soft, nontender, no hepatosplenomegaly Skin: no rashes, warm and dry Results & Data ([facility]) Vital Signs (Past 12 Hours) Vital Signs Temp Pulse Resp BP Pulse Ox O2 Del Method 03/07/22 07:04 36.6 C 59 L 16 134/70 97 Room Air 03/06/22 23:45 36.4 C L 66 16 138/55 L 94 Room Air Laboratory Results 03/07/22 03/07/22 Range/Units 07:01 06:58 WBC 4.35 L (4.8-10.8) K/ul RBC 3.79 L (3.93-5.22) M/uL Hgb 12.0 (12.0-16.0) g/dl Hct 37.0 (34.1-44.9) % MCV 97.6 (80.0-100.0) fL MCH 31.7 (25.0-34.0) pg MCHC 32.4 (32.0-36.0) g/dL RDW Std Deviation 47.4 H (36.4-46.3) fL RDW Coeff of Minda 13.3 (11.5-14.5) % Plt Count 225 (130-400) K/uL MPV 10.5 (9.4-12.3) fL Immature Gran % (Auto) 0.2 % Neut % (Auto) 56.9 % Lymph % (Auto) 25.7 % [place] % (Auto) 10.3 % Eos % (Auto) 6.2 % Baso % (Auto) 0.7 % Neut # (Auto) 2.47 (1.4-6.5) K/uL Lymph # (Auto) 1.12 L (1.2-3.4) K/uL [place] # (Auto) 0.45 (0.24-0.82) K/uL Eos # (Auto) 0.27 (0-0.50) K/uL Baso # (Auto) 0.03 (0-0.2) K/uL Immature Gran # (Auto) 0.01 (0.00-0.02) K/uL Sodium 142 (136-145) mmol/L Potassium 3.9 (3.5-5.1) mmol/L Chloride 112 H (98-107) mmol/L Carbon Dioxide 26 (21-32) mmol/L Anion Gap 4 (3-11) BUN 8 (6-23) mg/dl Creatinine 0.72 (0.6-1.2) mg/dl Est Cr Clr Drug Dosing 47.3 ml/min Est GFR ( Amer) 88.5 ml/min Est GFR (Non-Af Amer) 76.4 ml/min BUN/Creatinine Ratio 11.1 (10-20) Glucose 88 (70-99(Fasting)) mg/dl Calcium 8.5 (8.5-10.1) mg/dl Magnesium 2.1 (1.7-2.4) mg/dl Total Bilirubin 0.6 (0.2-1.0) mg/dl AST 52 H (13-39) U/L ALT 72 H (7-52) U/L Alkaline Phosphatase 54 (34-104) U/L Total Protein 6.0 (6.0-8.3) gm/dl Albumin 3.6 (3.4-5.0) gm/dl Globulin 2.4 L (2.5-4.0) gm/dl Albumin/Globulin Ratio 1.5 (0.9-2)
[2022-03-07] MEDS: ROSUVASTATIN CALCIUM 5 MG TAB PO SCH (13:28)
--- NOTE | 2022-03-07 15:48 | History & Physical Report ---
Date of Service March 07, 2022 Assessment & Plan (1) Encounter for pre-operative examination: Plan: ERCP Patient was explained in detail regarding risks, benefits, limitations and alternatives of the above endoscopic procedure. Risks of intravenous sedation used for procedure were also explained. Risks include, but not limited to perforation, bleeding, infection, respiratory distress, cardiac arrest and . Patient is also aware about the possibility of missed lesion. Patient's questions were answered. The patient verbalized understanding the information and agreed to undergo the procedure. Admission and Anticipated Discharge Date Admission Date: March 05, 2022 History of Present Illness Primary Care Provider: Selena Bloom MD ERCP for choledocholithiasis Allergies Allergy/AdvReac Type Severity Reaction Status Date / Time codeine AdvReac Unknown VOMITTING Verified 03/06/22 00:27 Home Medications Medication Instructions Recorded Confirmed Type aspirin 81 mg tablet,delayed 81 mg PO DAILY #30 tabs 08/01/19 03/06/22 Rx release rosuvastatin 5 mg tablet 5 mg PO DAILY #90 tabs 08/01/19 03/06/22 Rx metoprolol succinate 25 mg capsule 25 mg PO DAILY 06/23/20 03/06/22 History sprinkle, ext. release 24 hr cholecalciferol (vitamin D3) 25 25 mcg PO DAILY #30 caps 06/24/20 03/06/22 Rx mcg (1,000 unit) capsule amlodipine 2.5 mg tablet 2.5 mg PO DAILY 06/28/21 03/06/22 History calcium carbonate 600 mg calcium 600 mg PO DAILY 11/24/21 03/06/22 History (1,500 mg) tablet (Calcium) vitamin B complex (B 1 tab PO DAILY 11/24/21 03/06/22 History Complex-Vitamin B12 tablet) Past Med/Surg History Medical History Chest pain Diverticulosis of colon Excessive cerumen in left ear canal Impacted cerumen of both ears PPD positive Negative blood test for TB 2019 Right hip pain Surgical History H/O elbow surgery Family History Sister Lung cancer Mother Stroke Brother Stroke Other Cancer Heart disease Tuberculosis Denies family history of Ovarian cancer Prostate cancer Myocardial infarction Breast cancer Colorectal cancer Social History Smoking Status: Never smoker Second Hand Exposure: No; Hx Alcohol Use: Yes Alcohol type: wine Alcohol Intake Frequency: 2-3 x/Week Hx Substance Use: No Preferred Language: Mauritian Communication Ability: Effective [employer] Consultant Required: No Beliefs That Will Affect Care: None marital status: Current Living Situation: Spouse current occupational status: retired How many Children do You have: 1 Feels Safe at Home: No Is there a partner from a previous relationship who is making you feel unsafe now?: No Any Concerns about Your Family Situation: No Would You Like to Speak to Someone About Your Situation: No Safety Concerns: Feels Safe At This Time Childhood Exposure to Second-Hand Smoke: Yes Dental Care, Regularly: Yes Physical Activity Frequency: Does not Exercise Seatbelt Use: always Sunscreen Use: Yes Assistive Devices: None Review of Systems All systems reviewed & are unremarkable except as noted in HPI & below Physical Exam Constitutional: comfortable; no acute distress Respiratory: normal respiratory effort, lungs clear to auscultation Cardiovascular: RRR, no murmur, no edema Gastrointestinal (Abdomen): normal bowel sounds, soft, nontender, no hepatosplenomegaly Results & Data ([facility]) Vital Signs (Past 12 Hours) Vital Signs Temp Pulse Resp BP Pulse Ox O2 Del Method 03/07/22 15:09 36.7 C 63 16 152/69 H 95 Room Air 03/07/22 07:04 36.6 C 59 L 16 134/70 97 Room Air Code Status & VTE Plan VTE Prophylaxis Plan VTE Prophylaxis will be ordered: Yes
[2022-03-07] MEDS ORDERED: ATROPINE SULFATE 0.1 MG/ML 10ML SYR IV PRN (16:03)
[2022-03-07] MEDS ORDERED: ePHEDrine sulfate 50 MG/ML AMP IV PRN (16:03)
[2022-03-07] MEDS ORDERED: PHENYLEPHRINE 100MCG/ML 5ML SYR IV PRN (16:03)
[2022-03-07] MEDS ORDERED: fentaNYL citrate 100 MCG/2 ML VIAL IV PRN (16:03)
[2022-03-07] MEDS ORDERED: ONDANSETRON INJ 2 MG/ML 2 ML VIAL IV PRN (16:03)
[2022-03-07] MEDS ORDERED: LABETALOL HCL IV 5 MG/ML 20ML IV PRN (16:03)
[2022-03-07] MEDS ORDERED: ONDANSETRON INJ 2 MG/ML 2 ML VIAL ONE (16:22)
[2022-03-07] MEDS ORDERED: LARYING-O-JET KIT (LTA) ONE (16:22)
[2022-03-07] MEDS ORDERED: LIDOCAINE 2% MPF LOCAL 5 ML VIAL INFIL ONE (16:22)
[2022-03-07] MEDS ORDERED: ROCURONIUM BROMIDE 10 MG/ML 5 ML VIAL IV ONE (16:22)
[2022-03-07] MEDS ORDERED: SUCCINYLCHOLINE CHLORIDE 20 MG/ML 10 ML VIAL IV ONE (16:22)
[2022-03-07] MEDS ORDERED: PROPOFOL IV EMULSION 10 MG/ML 20 ML VIAL IV ONE (16:22)
[2022-03-07] MEDS ORDERED: fentaNYL citrate 100 MCG/2 ML VIAL ONE (16:22)
--- NOTE | 2022-03-07 16:31 | Operative Report ---
Post Operative Report Pre & Post Diagnosis Operation Date: 03/07/22 11:25 Pre-Op Diagnosis: Choledocholithiasis. Post-Op Diagnosis: Choledocholithiasis. I identified the patient and participated in the time-out.: Yes Procedure Operation Date: 03/07/22 11:25 Actual Procedures p Endoscopic retrograde cholangiopancreatography. - Margarita Mccullough MD Surgeon Margarita Mccullough MD Adjuster Leader None Estimated Blood Loss 0 Findings See Below (Choledocholithiasis) Specimens None Description of Procedure ERCP I attest to the content of the Intraoperative Record and any orders documented therein. Any exceptions are noted below.
--- NOTE | 2022-03-07 16:45 | GI REPORT ---
Patient Name: Danae Mobley Procedure Date: 03/07/2022 2:51 PM Date of : 1935 Admit Type: Inpatient Age: 86 Gender: Female Attending MD: Margarita Mccullough MD Procedure: ERCP Providers: Margarita Mccullough MD Referring MD: Edilson Burks Indications: Bile duct stone on Computed Tomogram Scan, For therapy of bile duct stone(s) Medicines: Propofol per Anesthesia Complications: No immediate complications. Estimated Blood Loss: Estimated blood loss: none. Procedure: Pre-Anesthesia Assessment: - Prior to the procedure, a History and Physical was performed, and patient medications, allergies and sensitivities were reviewed. The patient's tolerance of previous anesthesia was reviewed. - The risks and benefits of the procedure and the sedation options and risks were discussed with the patient. All questions were answered and informed consent was obtained. - Patient identification and proposed procedure were verified prior to the procedure by the physician and the nurse. The procedure was verified in the procedure room. - Pre-procedure physical examination revealed no contraindications to sedation. After obtaining informed consent, the scope was passed under direct vision. Throughout the procedure, the patient's blood pressure, pulse, and oxygen saturations were monitored continuously. The Duodenoscope was introduced through the mouth, and advanced to the duodenum and used to inject contrast into the bile duct. The ERCP was accomplished without difficulty. The patient tolerated the procedure well. Findings: The shop cooper film was normal. The esophagus was successfully intubated under direct vision. The scope was advanced to a normal major papilla in the descending duodenum without detailed examination of the pharynx, larynx and associated structures, and upper GI tract. The upper GI tract was grossly normal. A 0.025 inch x 270 cm angled Visiglide wire was passed into the biliary tree. The CleverCut distal wire sphincterotome was passed over the guidewire and the bile duct was then deeply cannulated. Contrast was injected. I personally interpreted the bile duct images. Ductal flow of contrast was adequate. Image quality was adequate. Contrast extended to the main bile duct. Opacification of the entire biliary tree except for the gallbladder was successful. The maximum diameter of the ducts was 12 mm. Biliary sphincterotomy was made with a monofilament traction (standard) sphincterotome using ERBE electrocautery. There was no post-sphincterotomy bleeding. The biliary tree was swept with a 12 mm balloon starting at the bifurcation. One stone was removed. No stones remained. One 10 Fr by 9 cm plastic biliary stent with a single external flap and a single internal flap was placed into the common bile duct. Bile flowed through the stent. The stent was in good position. Impression: - Choledocholithiasis was found. Complete removal was accomplished by biliary sphincterotomy and balloon extraction. - One plastic biliary stent was placed into the common bile duct. Recommendation: - Return patient to [facility] for [facility] care. - Repeat ERCP in 2 months to remove stent. - Follow up with surgery for cholecystectomy. - Avoid NSAIDs. Margarita Mccullough MD 03/07/2022 4:45:23 PM This report has been signed electronically. Note Initiated On: 03/07/2022 2:51 PM Number of Addenda: 0 I attest to the content of the Intraoperative Record and orders documented therein, exceptions below {[id number]}
--- NOTE | 2022-03-07 17:07 | Anesthesiology Progress Note ---
Date of Service March 07, 2022 Anesthesia Post Procedure Vital Signs Vital Signs: Temp Pulse Pulse Resp BP Pulse Ox O2 Del Method 03/07/22 16:55 69 13 161/77 H 98 Room Air 03/07/22 16:45 73 22 150/65 H 98 Oxymask 03/07/22 16:37 36.1 C L 62 12 126/68 98 Oxymask 03/07/22 15:49 36.8 C 71 14 186/84 H 97 Room Air 03/07/22 15:09 36.7 C 63 16 152/69 H 95 Room Air 03/07/22 07:04 36.6 C 59 L 16 134/70 97 Room Air 03/06/22 23:45 36.4 C L 66 16 138/55 L 94 Room Air 03/06/22 20:14 36.6 C 61 16 149/78 H 94 Room Air O2 Flow Rate 03/07/22 16:55 03/07/22 16:45 6 03/07/22 16:37 6 03/07/22 15:49 03/07/22 15:09 03/07/22 07:04 03/06/22 23:45 03/06/22 20:14 Transfer of Care Handoff Completed per policy Notes Mental Status: alert / awake / arousable Patient Amnestic to Procedure: Yes Nausea / Vomiting: adequately controlled Pain: adequately controlled Airway Patency, RR, SpO2: stable & adequate BP & HR: stable & adequate Hydration State: stable & adequate Anesthetic Complications: no major complications apparent and Pt Satisfied with anesthetic care
--- NOTE | 2022-03-07 18:10 | Fluoroscopy Report ---
[place] ERCP biliary ductal CLINICAL HISTORY: EXPLORE DUCTS COMPARISON STUDY: CT of the abdomen and pelvis and right upper quadrant ultrasound March 05, 2022. FLUOROSCOPY TIME: 18.6 seconds. FLUOROSCOPIC IMAGES: 15 FINDINGS: Fluoroscopy was provided during ERCP. Common bile duct was cannulated. Balloon sweep throug h the common bile duct was performed with placement of a common bile duct stent which is well positio korey. IMPRESSION: Fluoroscopy provided during ERCP with placement of a common bile duct stent. ACT 112: Negative or not required by law. Electronically signed by: Richy Dial M.D. 03/07/2022 6:08 PM
[2022-03-07] MEDS ORDERED: COUGH DROP (SUGAR FREE) LOZ 24 LOZ/1 BOX BUCCAL ONE (18:16)
--- NOTE | 2022-03-07 18:16 | Billing Data ---
Date of Service March 07, 2022 Coding Level of Care Code 18500 Subseq Hosp Care Lvl 2
[2022-03-07] MEDS: MoRPHine SULFATE 2 MG/ML CARP IV PRN ×2 (18:17→22:01)
[2022-03-07 19:49] LABS: Bilirubin Direct 0.1 mg/dl (0-0.2)
[2022-03-07 19:50] LABS: Albumin Level 4.1 gm/dl (3.4-5.0); Bilirubin,Total 0.7 mg/dl (0.2-1.0); Total Protein 7.1 gm/dl (6.0-8.3)
[2022-03-07] MEDS: amLODIPine BESYLATE 5 MG TAB PO SCH (21:56)
[2022-03-08] MEDS: SODIUM CHLORIDE 0.9% 1000ML 1,000 ML IV SCH ×2 (05:46→18:17)
[2022-03-08] MEDS: PIPERACILLIN/TAZOBACTAM 3.375 GM in DEXTROSE 5% 100 ML IV SCH ×3 (05:47→21:21)
[2022-03-08 06:38] LABS: Hematocrit (blood only) 40.5 % (34.1-44.9); Hemoglobin 13.5 g/dl (12.0-16.0); Mean Corpuscular Hemoglobin 31.3 pg (25.0-34.0); Mean Corpuscular Hgb Conc 33.3 g/dL (32.0-36.0); Mean Platelet Volume 9.8 fL (9.4-12.3); Platelet Count 239 K/uL (130-400); RDW Coefficient of Variation 12.7 % (11.5-14.5); RDW Standard Deviation 44.2 fL (36.4-46.3); Red Blood Count 4.31 M/uL (3.93-5.22); White Blood Count 7.57 K/ul (4.8-10.8)
[2022-03-08 06:57] LABS: Albumin Globulin Ratio 1.4 (0.9-2); BUN Creatinine Ratio 11.1 (10-20); Bilirubin,Total 0.6 mg/dl (0.2-1.0); Calcium 8.7 mg/dl (8.5-10.1); Est GFR (African American) 94.8 ml/min; Est GFR (Non-African American) 81.8 ml/min; Globulin 2.9 gm/dl (2.5-4.0); Potassium 3.7 mmol/L (3.5-5.1); Total Protein 6.9 gm/dl (6.0-8.3)
--- NOTE | 2022-03-08 07:16 | Surgery Progress Note ---
Date of Service March 08, 2022 Assessment & Plan (1) Cholelithiasis: Plan: I discussed surgery yesterday morning with the patient prior to ERCP she wanted to proceed as quickly as possible she did not want to stay in the hospital along however this morning she feels too weak to proceed with surgery therefore at this time we will hold off surgery for today and rescheduled for tomorrow Will restart oral intake Admission and Anticipated Discharge Date Admission Date: March 05, 2022 Subjective Does not feel as good this morning some abdominal discomfort no nausea feels very weak Physical Exam Physical Exam: Alert coherent without any acute distress Sclera is nonicteric Oral mucosa moist The abdomen is soft nontender no definite guarding Results & Data ([facility]) Vital Signs (Past 12 Hours) Vital Signs Temp Pulse Resp BP BP Pulse Ox O2 Del Method 03/07/22 23:37 36.6 C 70 16 168/70 H 97 Room Air 03/07/22 21:54 36.8 C 78 16 160/76 H 95 Room Air 03/07/22 19:25 36.3 C L 63 16 178/68 H 97 Room Air PG Care Time/CCT Total # of Minutes Spent Total Time Spent with Patient: Total time spent is greater than 50% in coordination of care (as documented) at patient's floor/unit and/or counseling patient: Coding Level of Care Code 56192 Subseq Hosp Care Lvl 3 Diagnoses Cholelithiasis K80.20
--- NOTE | 2022-03-08 07:41 | Hospitalist Progress Note ---
Date of Service March 08, 2022 Assessment & Plan (1) Choledocholithiasis: Plan: Choledocholithiasis - Presenting with acute-onset upper abdominal pain. - US Gallbladder and CT A&P w/ evidence of choledocholithiasis, thickening of gallbladder, gallstones present in gallbladder w/o evidence of cholecystitis. - Patient started on Zosyn empirically. - GI consulted for ERCP performed 03/07, 1 stone removed stent placed - Gen Surgery consulted - Continue Zosyn, NPO, IV fluids, analgesics, anti-emetics. - cholecystectomy scheduled for tomorrow - Full liquid diet - lipase negative, hbg stable - Pain: Morphine 2mg IV q2h PRN > Dilaudid 0.25mg IV breakthrough. - Trend LFTs HTN, HLD: - Continue home amlodipine, metoprolol, rosuvastatin, ASA 81mg. Diet: Full liquid diet with NPO midnight DVT Prophylaxis: SCDs Code status: Full code Dispo: Med/Surg (2) Hypertension: Admission and Anticipated Discharge Date Admission Date: March 05, 2022 Supervising Physician Co-Signing Physician Notes I personally examined the patient and verified all [place] points of history and exam, discussed case, and agree with decision making with Dr Viveros. Post ERCP, for cholecystectomy, surgery delayed due to fatigue. Patient sleeping at the time I see her. Vitals noted, sleeping comfortably, no distress. HEENT normocephalic atraumatic mucous membranes moist. Breathing unlabored no accessory muscle use good effort. Skin shows no rashes no pallor or icterus. Neuro without focal deficit at rest s. Choledocholithiasispost ERCP, for cholecystectomy tomorrow. Continue supportive care. Continue Zosyn. Otherwise as above Subjective Patient seen at bedside, states acute abd pain has improved, instead she has periodic squeezing and tightness in her abd. States she felt too tired for surgery today. Otherwise has good appetite, normal bowel movements. Review of Systems Review of Systems: Negative fever chills Negative headache dizziness Negative chest pain palpitations SOB Negative nausea vomitting diarrhea constipation Negative numbness tingling rash swelling Physical Exam Constitutional: WD/WN, vitals as above Eyes: PERRL, conjunctivae normal, anicteric sclerae ENMT: external ear and nose normal, oropharynx normal Neck: trachea midline, no thyromegaly Respiratory: normal respiratory effort, lungs clear to auscultation Cardiovascular: Rate/Rhythm: regular rate and regular rhythm Gastrointestinal (Abdomen): Inspection/Auscultation: abdomen normal to inspection Percussion/Palpation: abdomen soft; abdomen nontender Skin: no rashes, warm and dry Results & Data Results & Data ([facility]) Vital Signs (Past 12 Hours) Vital Signs Temp Pulse Resp BP BP Pulse Ox O2 Del Method 03/07/22 23:37 36.6 C 70 16 168/70 H 97 Room Air 03/07/22 21:54 36.8 C 78 16 160/76 H 95 Room Air Laboratory Results 03/08/22 03/08/22 03/07/22 Range/Units 06:03 06:03 19:07 WBC 7.57 (4.8-10.8) K/ul RBC 4.31 (3.93-5.22) M/uL Hgb 13.5 (12.0-16.0) g/dl Hct 40.5 (34.1-44.9) % MCV 94.0 (80.0-100.0) fL MCH 31.3 (25.0-34.0) pg MCHC 33.3 (32.0-36.0) g/dL RDW Std Deviation 44.2 (36.4-46.3) fL RDW Coeff of Minda 12.7 (11.5-14.5) % Plt Count 239 (130-400) K/uL MPV 9.8 (9.4-12.3) fL Sodium 139 (136-145) mmol/L Potassium 3.7 (3.5-5.1) mmol/L Chloride 108 H (98-107) mmol/L Carbon Dioxide 22 (21-32) mmol/L Anion Gap 9 (3-11) BUN 7 (6-23) mg/dl Creatinine 0.63 (0.6-1.2) mg/dl Est Cr Clr Drug Dosing 54.0 ml/min Est GFR ( Amer) 94.8 ml/min Est GFR (Non-Af Amer) 81.8 ml/min BUN/Creatinine Ratio 11.1 (10-20) Glucose 91 (70-99(Fasting)) mg/dl Calcium 8.7 (8.5-10.1) mg/dl Total Bilirubin 0.6 0.7 (0.2-1.0) mg/dl Direct Bilirubin 0.1 (0-0.2) mg/dl AST 30 47 H (13-39) U/L ALT 55 H 69 H (7-52) U/L Alkaline Phosphatase 60 61 (34-104) U/L Total Protein 6.9 7.1 (6.0-8.3) gm/dl Albumin 4.0 4.1 (3.4-5.0) gm/dl Globulin 2.9 (2.5-4.0) gm/dl Albumin/Globulin Ratio 1.4 (0.9-2) Lipase 9 L (11-82) U/L Medications Administered Current Inpatient Medications Acetaminophen (Acetaminophen 325 Mg Tab) 650 mg PO Q4H PRN PRN Reason: pain/fever Stop: 04/04/22 23:32 Amlodipine Besylate (Amlodipine Besylate 5 Mg Tab) 2.5 mg PO HS [facility] Stop: 04/05/22 20:59 Last Admin: 03/07/22 21:56 Dose: 2.5 mg Aspirin (Aspirin 81 Mg Ectab) 81 mg PO DAILY BR[place] Stop: 04/05/22 08:59 Last Admin: 03/06/22 08:41 Dose: 81 mg Hydromorphone HCl (Hydromorphone Inj 0.5 Mg/0.5 Ml Syr) 0.25 mg IV Q6H PRN PRN Reason: Breakthrough Pain Stop: 03/20/22 02:15 Piperacillin Sod/Tazobactam (Sod 3.375 gm/ Dextrose) 115 mls @ 28.75 mls/hr IV Q8H [facility]; Protocol Stop: 03/16/22 05:59 Last Admin: 03/08/22 15:25 Dose: 28.8 mls/hr Sodium Chloride (Nss 1000ml) 1,000 mls @ 80 mls/hr IV .[id number] BREN[place] Stop: 04/05/22 02:15 Last Admin: 03/08/22 05:46 Dose: 80 mls/hr Metoprolol Succinate (Metoprolol Succ 25mg Ext Rel Tab) 25 mg PO DAILY [place] Stop: 04/05/22 08:59 Last Admin: 03/08/22 08:32 Dose: 25 mg Morphine Sulfate (Morphine Sulfate 2 Mg/Ml Carp) 2 mg IV Q3H PRN PRN Reason: Moderate-Severe Pain (first) Stop: 03/20/22 02:15 Last Admin: 03/07/22 22:01 Dose: 2 mg Ondansetron HCl (Ondansetron Inj 2 Mg/Ml 2 Ml Vial) 4 mg IV Q6H PRN PRN Reason: Nausea And Vomiting Stop: 04/05/22 02:15 Rosuvastatin Calcium (Rosuvastatin Calcium 5 Mg Tab) 5 mg PO DAILY [place] Stop: 04/05/22 08:59 Last Admin: 03/08/22 08:31 Dose: 5 mg Resident Activity Tracking Resident Involvement: Resident Care Provided Care Provided: Adult Hospital Medicine
[2022-03-08] MEDS: ROSUVASTATIN CALCIUM 5 MG TAB PO SCH (08:31)
[2022-03-08] MEDS: METOPROLOL SUCC 25MG EXT REL TAB PO SCH (08:32)
--- NOTE | 2022-03-08 18:44 | Billing Data ---
Date of Service March 08, 2022 Coding Level of Care Code 61809 Subseq Hosp Care Lvl 2
[2022-03-08] MEDS: amLODIPine BESYLATE 5 MG TAB PO SCH (21:21)
[2022-03-09] MEDS: SODIUM CHLORIDE 0.9% 1000ML 1,000 ML IV SCH ×2 (04:17→18:29)
[2022-03-09] MEDS: PIPERACILLIN/TAZOBACTAM 3.375 GM in DEXTROSE 5% 100 ML IV SCH ×3 (05:37→21:07)
--- NOTE | 2022-03-09 06:57 | Hospitalist Progress Note ---
Date of Service March 09, 2022 Assessment & Plan (1) Choledocholithiasis: Plan: Choledocholithiasis - Presenting with acute-onset upper abdominal pain. - US Gallbladder and CT A&P w/ evidence of choledocholithiasis, thickening of gallbladder, gallstones present in gallbladder w/o evidence of cholecystitis. - Patient started on Zosyn empirically. - GI consulted for ERCP performed 03/07, 1 stone removed stent placed - Gen Surgery consulted - Continue Zosyn, NPO, IV fluids, analgesics, anti-emetics. - cholecystectomy scheduled today - lipase negative, hbg stable - Pain: Morphine 2mg IV q2h PRN > Dilaudid 0.25mg IV breakthrough. - Trend LFTs HTN, HLD: - Continue home amlodipine, metoprolol, rosuvastatin, ASA 81mg. Hypokalemis -repleted Diet: NPO for surgery, clear liquid diet after DVT Prophylaxis: SCDs Code status: Full code Dispo: Med/Surg (2) Hypertension: Admission and Anticipated Discharge Date Admission Date: March 05, 2022 Supervising Physician Co-Signing Physician Notes I personally examined the patient and verified all [place] points of history and exam, discussed case, and agree with decision making with Dr Viveros. post choley pain under control tolerating clear liquids no pain no nausea Vitals noted, sleeping comfortably, no distress. HEENT normocephalic atraumatic mucous membranes moist. Breathing unlabored no accessory muscle use good effort. Skin shows no rashes no pallor or icterus. Neuro without focal deficit at rest s. Choledocholithiasispost ERCP, post choley, doing well Otherwise as above Subjective Patient seen at bedside, calm comfortable cooperative, states she still gets squeezing in her abdomen but pain is manageable, tolerated food well yesterday NPO today understands she is planned for cholecystectomy today. She states she has more energy today Review of Systems Review of Systems: Negative fever chills Negative headache dizziness Negative chest pain palpitations SOB Negative nausea vomitting diarrhea constipation Physical Exam Constitutional: WD/WN, vitals as above Eyes: PERRL, conjunctivae normal, anicteric sclerae ENMT: external ear and nose normal, oropharynx normal Neck: trachea midline, no thyromegaly Respiratory: normal respiratory effort, lungs clear to auscultation Cardiovascular: Rate/Rhythm: regular rate and regular rhythm Gastrointestinal (Abdomen): Inspection/Auscultation: abdomen normal to inspection Percussion/Palpation: abdomen soft; abdomen nontender Skin: no rashes, warm and dry Results & Data Results & Data ([facility]) Vital Signs (Past 12 Hours) Vital Signs Temp Pulse Pulse Resp BP BP Pulse Ox 03/08/22 23:14 175/80 H 160/75 H 03/08/22 21:16 36.4 C L 72 16 179/77 H 94 03/08/22 19:47 36.6 C 77 16 165/80 H 94 O2 Del Method 03/08/22 23:14 03/08/22 21:16 Room Air 03/08/22 19:47 Room Air Laboratory Results Laboratory Results WBC 5.88 K/ul (4.8-10.8) 03/09/22 07:18 RBC 4.06 M/uL (3.93-5.22) 03/09/22 07:18 Hgb 12.6 g/dl (12.0-16.0) 03/09/22 07:18 Hct 37.4 % (34.1-44.9) 03/09/22 07:18 MCV 92.1 fL (80.0-100.0) 03/09/22 07:18 MCH 31.0 pg (25.0-34.0) 03/09/22 07:18 MCHC 33.7 g/dL (32.0-36.0) 03/09/22 07:18 RDW Std Deviation 42.7 fL (36.4-46.3) 03/09/22 07:18 RDW Coeff of Minda 12.8 % (11.5-14.5) 03/09/22 07:18 Plt Count 235 K/uL (130-400) 03/09/22 07:18 MPV 9.6 fL (9.4-12.3) 03/09/22 07:18 Immature Gran % (Auto) 0.2 % 03/07/22 07:01 Neut % (Auto) 56.9 % 03/07/22 07:01 Lymph % (Auto) 25.7 % 03/07/22 07:01 Emanuel % (Auto) 10.3 % 03/07/22 07:01 Eos % (Auto) 6.2 % 03/07/22 07:01 Baso % (Auto) 0.7 % 03/07/22 07:01 Neut # (Auto) 2.47 K/uL (1.4-6.5) 03/07/22 07:01 Lymph # (Auto) 1.12 K/uL (1.2-3.4) L 03/07/22 07:01 Emanuel # (Auto) 0.45 K/uL (0.24-0.82) 03/07/22 07:01 Eos # (Auto) 0.27 K/uL (0-0.50) 03/07/22 07:01 Baso # (Auto) 0.03 K/uL (0-0.2) 03/07/22 07:01 Immature Gran # (Auto) 0.01 K/uL (0.00-0.02) 03/07/22 07:01 PT 10.0 Seconds (9.0-12.0) 03/05/22 20:45 INR 0.9 (0.9-1.1) 03/05/22 20:45 APTT 24.3 Seconds (21.0-31.0) 03/05/22 20:45 PTT Ratio 0.9 03/05/22 20:45 Sodium 140 mmol/L (136-145) 03/09/22 07:18 Potassium 3.2 mmol/L (3.5-5.1) L 03/09/22 07:18 Chloride 110 mmol/L (98-107) H 03/09/22 07:18 Carbon Dioxide 23 mmol/L (21-32) 03/09/22 07:18 Anion Gap 7 (3-11) 03/09/22 07:18 BUN 7 mg/dl (6-23) 03/09/22 07:18 Creatinine 0.62 mg/dl (0.6-1.2) 03/09/22 07:18 Est Cr Clr Drug Dosing 54.9 ml/min 03/09/22 07:18 Est GFR ( Amer) 95.3 ml/min 03/09/22 07:18 Est GFR (Non-Af Amer) 82.2 ml/min 03/09/22 07:18 BUN/Creatinine Ratio 11.3 (10-20) 03/09/22 07:18 Glucose 99 mg/dl (70-99(Fasting)) 03/09/22 07:18 Calcium 8.6 mg/dl (8.5-10.1) 03/09/22 07:18 Magnesium 2.1 mg/dl (1.7-2.4) 03/07/22 06:58 Total Bilirubin 0.6 mg/dl (0.2-1.0) 03/08/22 06:03 Direct Bilirubin 0.1 mg/dl (0-0.2) 03/07/22 19:07 AST 30 U/L (13-39) 03/08/22 06:03 ALT 55 U/L (7-52) H 03/08/22 06:03 Alkaline Phosphatase 60 U/L (34-104) 03/08/22 06:03 Troponin I High Sens 6.6 pg/ml (0-14) 03/05/22 23:17 Total Protein 6.9 gm/dl (6.0-8.3) 03/08/22 06:03 Albumin 4.0 gm/dl (3.4-5.0) 03/08/22 06:03 Globulin 2.9 gm/dl (2.5-4.0) 03/08/22 06:03 Albumin/Globulin Ratio 1.4 (0.9-2) 03/08/22 06:03 Lipase 9 U/L (11-82) L 03/07/22 19:07 SARS-CoV-2, RNA, NAAT NEGATIVE (NEGATIVE) 03/05/22 23:41 Impressions Abdomen/Pelvis CT 03/05/22 21:43 CT abd pelvis IV con only CLINICAL HISTORY: upper/mid abd pain TECHNIQUE: Helical axial images of the abdomen and pelvis were obtained and displayed. Automated dose lowering techniques and/or adjustment according to patient size were utilized for this exam. This exam was performed with intravenous contrast. CT DOSE: 243.57 mGy.cm COMPARISON: Comparison is made to CT abdomen pelvis 12/02/2015 FINDINGS: Lower chest: Bibasilar atelectasis versus scarring is seen. Liver: Hepatic cysts are seen. Gallbladder and biliary tree: Cholelithiasis is seen including stones in the gallbladder neck. The gallbladder wall is prominent measuring approximately 3 mm in diameter. There is dilation of the common bile duct measuring up to 8 mm. A calcific stone is noted in the distal common bile duct. Pancreas: Unremarkable, no focal lesions. Spleen: Unremarkable. Adrenals: Unremarkable. Kidneys and ureters: Unremarkable. Bladder: Unremarkable. Reproductive organs: Unremarkable. Bowel: Diverticulosis is seen without evidence of diverticulitis. The appendix is normal. Lymph nodes Retroperitoneal: Unremarkable. Pelvic: Unremarkable. Mesenteric: Unremarkable. Peritoneum: Normal. Vessels: Atherosclerotic calcifications are seen. Abdominal wall: Unremarkable. Bones: Degenerative changes in the visualized spine. IMPRESSION: Choledocholithiasis is seen with associated dilation of the common bile duct. There is thickening of the gallbladder wall which may reflect a secondary cholecystitis. Cholelithiasis is seen. ACT 112: Negative or not required by law. Electronically signed by: Paul Porter M.D. 03/05/2022 10:58 PM Gallbladder Ultrasound 03/05/22 21:43 US gallbladder CLINICAL HISTORY: epi pain TECHNIQUE: Multiple real-time sonographic images of the right upper quadrant were obtained. Comparison: Comparison is made to CT abdomen pelvis 03/05/2022 FINDINGS: The liver is diffusely homogenous with normal contour and echogenicity. Multiple hepatic cysts are seen measuring up to 2.4 cm. No intrahepatic ductal dilatation is seen. Linear hyperechoic foci with posterior shadowing are identified layering dependently within the gallbladder, which are consistent with gallstones. The gallbladder wall is not thickened. There is no pericholecystic fluid present. A sonographic Jovel's sign was not elicited by the controls design engineer. The common duct measures 1.1 cm in diameter at the level of the hepatic artery. The visualized portions of the pancreas appear normal. The right kidney shows normal echogenicity, cortical thickness and renal contour. The right kidney shows no evidence of hydronephrosis or mass. No ascites or free fluid is seen in Matthews's pouch. IMPRESSION: Marked dilation of the common bile duct measuring 1.1 cm in diameter compatible with choledocholithiasis seen on CT abdomen pelvis. Multiple stones are seen in the gallbladder without evidence of cholecystitis. ACT 112: Negative or not required by law. Electronically signed by: Paul Porter M.D. 03/05/2022 11:05 PM Endo Retro Cholangiopancreatogram 03/07/22 16:00 FL ERCP biliary ductal CLINICAL HISTORY: EXPLORE DUCTS COMPARISON STUDY: CT of the abdomen and pelvis and right upper quadrant ultrasound March 05, 2022. FLUOROSCOPY TIME: 18.6 seconds. FLUOROSCOPIC IMAGES: 15 FINDINGS: Fluoroscopy was provided during ERCP. Common bile duct was cannulated. Balloon sweep through the common bile duct was performed with placement of a common bile duct stent which is well positioned. IMPRESSION: Fluoroscopy provided during ERCP with placement of a common bile duct stent. ACT 112: Negative or not required by law. Electronically signed by: Richy Dial M.D. 03/07/2022 6:08 PM Medications Administered Current Inpatient Medications Acetaminophen (Acetaminophen 325 Mg Tab) 650 mg PO Q4H PRN PRN Reason: pain/fever Stop: 04/04/22 23:32 Amlodipine Besylate (Amlodipine Besylate 5 Mg Tab) 2.5 mg PO HS BRENNON Stop: 04/05/22 20:59 Last Admin: 03/08/22 21:21 Dose: 2.5 mg Aspirin (Aspirin 81 Mg Ectab) 81 mg PO DAILY BRENNON Stop: 04/05/22 08:59 Last Admin: 03/06/22 08:41 Dose: 81 mg Hydromorphone HCl (Hydromorphone Inj 0.5 Mg/0.5 Ml Syr) 0.25 mg IV Q6H PRN PRN Reason: Breakthrough Pain Stop: 03/20/22 02:15 Piperacillin Sod/Tazobactam (Sod 3.375 gm/ Dextrose) 115 mls @ 28.75 mls/hr IV Q8H [facility]; Protocol Stop: 03/16/22 05:59 Last Admin: 03/09/22 05:37 Dose: 28.8 mls/hr Sodium Chloride (Nss 1000ml) 1,000 mls @ 80 mls/hr IV .[id number] [facility] Stop: 04/05/22 02:15 Last Admin: 03/09/22 04:17 Dose: 80 mls/hr Potassium Chloride (K Ancelmo / Wtr) 10 meq in 100 mls @ 100 mls/hr IV Q1H [facility] Stop: 03/09/22 12:14 Last Infusion: 03/09/22 09:55 Dose: 75 mls/hr Metoprolol Succinate (Metoprolol Succ 25mg Ext Rel Tab) 25 mg PO DAILY BR[facility] Stop: 04/05/22 08:59 Last Admin: 03/09/22 09:34 Dose: 25 mg Morphine Sulfate (Morphine Sulfate 2 Mg/Ml Carp) 2 mg IV Q3H PRN PRN Reason: Moderate-Severe Pain (first) Stop: 03/20/22 02:15 Last Admin: 03/07/22 22:01 Dose: 2 mg Ondansetron HCl (Ondansetron Inj 2 Mg/Ml 2 Ml Vial) 4 mg IV Q6H PRN PRN Reason: Nausea And Vomiting Stop: 04/05/22 02:15 Rosuvastatin Calcium (Rosuvastatin Calcium 5 Mg Tab) 5 mg PO DAILY BRENNON Stop: 04/05/22 08:59 Last Admin: 03/09/22 09:35 Dose: 5 mg Resident Activity Tracking Resident Involvement: Resident Care Provided Care Provided: Adult Hospital Medicine
--- NOTE | 2022-03-09 07:01 | Surgery Progress Note ---
Date of Service March 09, 2022 Assessment & Plan (1) Cholelithiasis: Plan: 03/09/22 The patient is willing to undergo surgery today she is on the schedule for early this afternoon we will keep her n.p.o. as she has been and we will sign the permit in the preop area All questions related to surgery including the surgical procedure laparoscopically possible open with bleeding infection injury to other organs and she would like to proceed accordingly I discussed surgery yesterday morning with the patient prior to ERCP she wanted to proceed as quickly as possible she did not want to stay in the hospital along however this morning she feels too weak to proceed with surgery therefore at this time we will hold off surgery for today and rescheduled for tomorrow Will restart oral intake Admission and Anticipated Discharge Date Admission Date: March 05, 2022 Subjective Feels better than yesterday in fact we wanted to operate on her yesterday but she is felt that she was not strong enough to undergo surgery today she feels like she can have surgery No abdominal discomfort no nausea Physical Exam Physical Exam: Alert coherent resting comfortably The abdomen is completely benign Results & Data ([facility]) Vital Signs (Past 12 Hours) Vital Signs Temp Pulse Pulse Resp BP BP Pulse Ox 03/08/22 23:14 175/80 H 160/75 H 03/08/22 21:16 36.4 C L 72 16 179/77 H 94 03/08/22 19:47 36.6 C 77 16 165/80 H 94 O2 Del Method 03/08/22 23:14 03/08/22 21:16 Room Air 03/08/22 19:47 Room Air PG Care Time/CCT Total # of Minutes Spent Total Time Spent with Patient: Total time spent is greater than 50% in coordination of care (as documented) at patient's floor/unit and/or counseling patient: Coding Level of Care Code 95937 Subseq Hosp Care Lvl 3 Diagnoses Cholelithiasis K80.20
[2022-03-09 07:36] LABS: Hematocrit (blood only) 37.4 % (34.1-44.9); Hemoglobin 12.6 g/dl (12.0-16.0); Mean Corpuscular Hgb Conc 33.7 g/dL (32.0-36.0); Mean Corpuscular Volume 92.1 fL (80.0-100.0); Mean Platelet Volume 9.6 fL (9.4-12.3); Platelet Count 235 K/uL (130-400); RDW Coefficient of Variation 12.8 % (11.5-14.5); RDW Standard Deviation 42.7 fL (36.4-46.3); Red Blood Count 4.06 M/uL (3.93-5.22); White Blood Count 5.88 K/ul (4.8-10.8)
[2022-03-09 07:57] LABS: BUN Creatinine Ratio 11.3 (10-20); Calcium 8.6 mg/dl (8.5-10.1); Creatinine Clr Calc Pharmacy 54.9 ml/min; Est GFR (African American) 95.3 ml/min; Est GFR (Non-African American) 82.2 ml/min; Potassium 3.2 mmol/L (3.5-5.1)
[2022-03-09] MEDS: POTASSIUM CHLORIDE / WTR 10 MEQ/100 ML PLCT IV SCH ×4 (09:34→14:11)
[2022-03-09] MEDS: METOPROLOL SUCC 25MG EXT REL TAB PO SCH (09:34)
[2022-03-09] MEDS: ROSUVASTATIN CALCIUM 5 MG TAB PO SCH (09:35)
[2022-03-09] MEDS ORDERED: NEOSTIGMINE METHYLSULFATE 1 MG/ML 10ML VIAL ONE ×2 (10:36→14:56)
[2022-03-09] MEDS ORDERED: ONDANSETRON INJ 2 MG/ML 2 ML VIAL ONE (10:36)
[2022-03-09] MEDS ORDERED: DEXAMETHASONE SOD INJ 4 MG/ML VIAL ONE (10:36)
[2022-03-09] MEDS ORDERED: GLYCOPYRROLATE 0.2 MG/ML VIAL ONE ×2 (10:36→14:56)
[2022-03-09] MEDS ORDERED: PROPOFOL IV EMULSION 10 MG/ML 20 ML VIAL IV ONE ×2 (10:36→13:22)
[2022-03-09] MEDS ORDERED: fentaNYL citrate 100 MCG/2 ML VIAL ONE (10:37)
[2022-03-09] MEDS ORDERED: LIDOCAINE 2% MPF LOCAL 5 ML VIAL INFIL ONE (11:10)
--- NOTE | 2022-03-09 12:47 | Anesthesiology Consultation ---
Date of Service March 09, 2022 Assessment & Plan (1) Encounter for pre-operative examination: Chart Review Chart Review: Acceptable Risk for Surgery History Surgery Operation Date: 03/07/22 11:25 Proposed Procedures p Endoscopic Retrograde Cholangiopancreato - Margarita Mccullough MD Operation Date: 03/09/22 13:30 Proposed Procedures p Laparoscopic Cholecystectomy with Cholangiogram - Damon Louise MD, FACS Height/Weight Height: 5 ft 3 in Weight: 55.1 kg Allergies Allergy/AdvReac Type Severity Reaction Status Date / Time codeine AdvReac Unknown VOMITTING Verified 03/06/22 00:27 Medications Home Medications Medication Instructions Recorded Confirmed Last Taken aspirin 81 mg tablet,delayed 81 mg PO DAILY #30 tabs 08/01/19 03/06/22 Unknown release rosuvastatin 5 mg tablet 5 mg PO DAILY #90 tabs 08/01/19 03/06/22 Unknown metoprolol succinate 25 mg capsule 25 mg PO DAILY 06/23/20 03/06/22 Unknown sprinkle, ext. release 24 hr cholecalciferol (vitamin D3) 25 25 mcg PO DAILY #30 caps 06/24/20 03/06/22 Unknown mcg (1,000 unit) capsule amlodipine 2.5 mg tablet 2.5 mg PO DAILY 06/28/21 03/06/22 Unknown calcium carbonate 600 mg calcium 600 mg PO DAILY 11/24/21 03/06/22 Unknown (1,500 mg) tablet (Calcium) vitamin B complex (B 1 tab PO DAILY 11/24/21 03/06/22 Unknown Complex-Vitamin B12 tablet) Active Medications Generic Name Dose Route Start Last Admin Trade Name Jalen PRN Reason Stop Dose Admin Amlodipine Besylate 2.5 mg 03/06/22 21:00 03/08/22 21:21 Amlodipine Besylate 5 Mg Tab PO 04/05/22 20:59 2.5 mg HS BRENNON Administration Aspirin 81 mg 03/06/22 09:00 03/06/22 08:41 Aspirin 81 Mg Ectab PO 04/05/22 08:59 81 mg DAILY BRENNON Administration Piperacillin Sod/Tazobactam 115 mls @ 28.75 mls/hr 03/06/22 06:00 03/09/22 09:37 Sod 3.375 gm/ Dextrose IV 03/16/22 05:59 Infused Q8H BRENNON Infusion Protocol Sodium Chloride 1,000 mls @ 80 mls/hr 03/06/22 02:16 03/09/22 04:17 Nss 1000ml IV 04/05/22 02:15 80 mls/hr .[id number] BRENNON Administration Metoprolol Succinate 25 mg 03/06/22 09:00 03/09/22 09:34 Metoprolol Succ 25mg Ext Rel Tab PO 04/05/22 08:59 25 mg DAILY BRENNON Administration Morphine Sulfate 2 mg 03/06/22 02:16 03/07/22 22:01 Morphine Sulfate 2 Mg/Ml Carp IV 03/20/22 02:15 2 mg Q3H PRN Administration Moderate-Severe Pain (first) Rosuvastatin Calcium 5 mg 03/06/22 09:00 03/09/22 09:35 Rosuvastatin Calcium 5 Mg Tab PO 04/05/22 08:59 5 mg DAILY BRENNON Administration NPO Date Last Intake of Fluids: 03/07/22 Time Last Intake of Fluids: 00:00 Date Last Intake of Solids: 03/07/22 Time Last Intake of Solids: 00:00 Past Medical History Medical History Chest pain Diverticulosis of colon Excessive cerumen in left ear canal Impacted cerumen of both ears PPD positive Negative blood test for TB 2019 Right hip pain Past Family History Family History Sister Lung cancer Mother Stroke Brother Stroke Other Cancer Heart disease Tuberculosis Denies family history of Ovarian cancer Prostate cancer Myocardial infarction Breast cancer Colorectal cancer Past Surgical History Surgical History H/O elbow surgery Social History Smoking Status: Never smoker Hx Alcohol Use: Yes Alcohol type: wine alcohol intake frequency: a few times a month Hx Substance Use: No Physical Exam Vital Signs Last Vital Signs Temp 36.5 C 03/09/22 08:12 Pulse 64 03/09/22 08:12 Resp 16 03/09/22 08:12 BP 165/77 H 03/09/22 08:12 Pulse Ox 95 03/09/22 08:12 O2 Del Method 03/09/22 08:12 O2 Flow Rate 6 03/07/22 16:45 Testing Laboratory Results 03/09/22 07:18 03/09/22 07:18 PT 10.0 Seconds (9.0-12.0) 03/05/22 20:45 INR 0.9 (0.9-1.1) 03/05/22 20:45 APTT 24.3 Seconds (21.0-31.0) 03/05/22 20:45 Electrocardiogram Date: 03/05/22 Findings: + NSR @ (80) Echocardiogram Date: 07/01/19 LV Function: normal Valvular Disease: + no significant valvular disease
--- NOTE | 2022-03-09 13:33 | History & Physical Bridge Note ---
Date of Service March 09, 2022 History & Physical Bridge Note I have examined the patient, reviewed the History & Physical and in the interval since the performance of the History & Physical I have noted the following changes of clinical significance: no changes noted Procedure again explained to the patient which is laparoscopically cystectomy cholangiogram possible open risk and complication again explained to her including bleeding infection converting to an open procedure and she would like to proceed accordingly Permit signed
[2022-03-09] MEDS ORDERED: ONDANSETRON INJ 2 MG/ML 2 ML VIAL IV PRN (13:43)
[2022-03-09] MEDS ORDERED: PHENYLEPHRINE 100MCG/ML 5ML SYR IV PRN (13:43)
[2022-03-09] MEDS ORDERED: ATROPINE SULFATE 0.1 MG/ML 10ML SYR IV PRN (13:43)
[2022-03-09] MEDS ORDERED: ePHEDrine sulfate 50 MG/ML AMP IV PRN (13:43)
[2022-03-09] MEDS ORDERED: MEPERIDINE HCL 25 MG/ML CARP/VIAL IV PRN (13:43)
[2022-03-09] MEDS ORDERED: LABETALOL HCL IV 5 MG/ML 20ML IV PRN (13:43)
--- NOTE | 2022-03-09 14:55 | Post Operative Brief Note ---
PG Immediate Post Op with CF Date of Surgery March 09, 2022 Pre & Post Diagnosis Operation Date: 03/07/22 11:25 Pre-Op Diagnosis: Choledocholithiasis. Post-Op Diagnosis: Choledocholithiasis. Operation Date: 03/09/22 13:30 Pre-Op Diagnosis: Cholelithiasis Choledocholithiasis Post-Op Diagnosis: Cholelithiasis Choledocholithiasis I identified the patient and participated in the time-out.: Yes Procedure Operation Date: 03/07/22 11:25 Actual Procedures p Endoscopic retrograde cholangiopancreatography. - Margarita Mccullough MD Operation Date: 03/09/22 13:30 Actual Procedures p Laparoscopic Cholecystectomy with Cholangiogram - Damon Louise MD, FACS Surgeon Damon Louise MD, FACS Community Case Manager None Estimated Blood Loss 10 Findings Consistent with Post-Op Diagnosis Specimens Specimen Description: A. Gallbladder and contents B. Biopsy of Liver Lesion Gallbladder swabbed for routine C&S, aerobic, anaerobic and gram stain cultures
[2022-03-09] MEDS ORDERED: LIDOCAINE 1%/EPINEPHRINE 1:100,000 50 ML VIAL INFIL ONE (15:06)
--- NOTE | 2022-03-09 15:10 | Operative Report ---
PG Post Operative Report Pre & Post Diagnosis Operation Date: 03/07/22 11:25 Pre-Op Diagnosis: Choledocholithiasis. Post-Op Diagnosis: Choledocholithiasis. Operation Date: 03/09/22 13:30 Pre-Op Diagnosis: Cholelithiasis Choledocholithiasis Post-Op Diagnosis: Cholelithiasis Choledocholithiasis 2 cm or so mass undersurface right lobe of the liver I identified the patient and participated in the time-out.: Yes Procedure Operation Date: 03/07/22 11:25 Actual Procedures p Endoscopic retrograde cholangiopancreatography. - Margarita Mccullough MD Operation Date: 03/09/22 13:30 Actual Procedures p Laparoscopic Cholecystectomy with Cholangiogram - Damon Louise MD, FACS Biopsy of mass right lobe of the liver The patient was brought into the operating theater general endotracheal anesthesia supine position IV antibiotics on board the abdomen was prepped byline solution properly draped patient identified timeout was had made a small incision supraumbilically sufficient for Veress needle followed by CO2 followed by 5 mm trocar followed by the camera and direct visualization there is no injury identified we placed a 5 mm epigastric and 2 5 mm subcostal ports with preemptive local analgesic 0.5% Marcaine the gallbladder was easily appreciated appears to be slightly thickened longstanding with a lateral right upper quadrant trocar site the graspers was placed and we elevated the gallbladder on top of the right lobe of the liver adhesions to the gallbladder were taken down mostly by blunt dissection a few used sharp dissection these are fine adhesions as we continue to elevate the gallbladder on the right lobe of the liver we can see undersurface of the liver on the right lobe approximately 6 cm or so from the gallbladder fossa there was a region regular. Scar tissue whitish mass irregular in nature was appreciated the gallbladder was continued to be suspended as we worked our way down to the hans hepatis and dissected out the triangle of DARLENE cystic duct was quite large the artery was similarly identified quite easily divided after we clipped approximately twice once distally we get around the cystic duct and placed a 5 mm clip at its takeoff a small opening in the cystic duct was made #4 urethral catheter was brought into the operating to when we opened a small opening in the cystic duct there seems a lot of gravel bilirubin needed material some sludge small stones we milked these all the way out and then were able to put the Cholangiocath in the cystic duct took 2 x-rays the first 1 showed some irregularities in the duct we flushed it more and it seemed like there is free flow into the duodenum the stent was easily appreciated in fact I thought it may been migrated distally in the duodenum the Cholangiocath was then removed the cystic duct was doubly clipped away from the common bile duct gallbladder was then removed in antegrade fashion using electrocautery leaving as much as possible posterior peritoneum very little bleeding was appreciated there gallbladder was removed from the liver taken out intact through the epigastric port site cultures were taken this point we irrigated the subhepatic suprahepatic area and attention was turned to the mass that we have seen elevating the right lobe of the liver with the trocar and grasp of the right upper quadrant using a pickup we took multiple biopsies of this lesion it bled easily we control that with bleeding what cautery and these 3-4 biopsies were taken or sent for permanent section the camera was placed in right upper quadrant trocar site to visualize the initial entry and umbilical area no adhesions were identified then the camera was placed in that area and individual trochars in right upper quadrant epigastric was taken out on direct visualization no bleeding unless the umbilical trocar wounds were closed with 4- 0 Monocryl Steri-Strips applied procedure was tolerated well by the patient estimate blood loss 10 cc Addendum Sugar Ramos physician service assistant was present throughout the case and helped with retraction exposure wound closure Surgeon Damon Louise MD, FACS Ios Architect None Estimated Blood Loss 10 Findings Consistent with Post-Op Diagnosis Chronic cholecystitis cholelithiasis choledocholithiasis 2 cm mass right lobe of the liver 4 cm so lateral to the gallbladder fossa Specimens Gallbladder and contents biopsy of the right lobe of liver 2 cm mass Complications Hard to manipulate her current suction irrigation device Indications Chronic cholecystitis cholelithiasis choledocholithiasis symptomatic Description of Procedure merda I attest to the content of the Intraoperative Record and any orders documented therein. Any exceptions are noted below.
[2022-03-09] MEDS: fentaNYL citrate 100 MCG/2 ML VIAL IV PRN ×2 (15:23→15:28)
--- NOTE | 2022-03-09 15:54 | Anesthesiology Progress Note ---
Date of Service March 09, 2022 Anesthesia Post Procedure Vital Signs Vital Signs: Temp Pulse Pulse Pulse Resp BP BP 03/09/22 15:50 36.1 C L 65 18 156/72 H 03/09/22 15:40 62 15 155/68 H 03/09/22 15:30 64 14 157/71 H 03/09/22 15:20 104 H 17 158/85 H 03/09/22 15:10 36.1 C L 104 H 19 160/133 H 03/09/22 12:56 36.7 C 72 20 180/87 H 03/09/22 08:12 36.5 C 64 16 165/77 H 03/08/22 23:14 175/80 H 160/75 H 03/08/22 21:16 36.4 C L 72 16 179/77 H 03/08/22 19:47 36.6 C 77 16 165/80 H Pulse Ox O2 Del Method 03/09/22 15:50 93 Room Air 03/09/22 15:40 92 Room Air 03/09/22 15:30 93 Room Air 03/09/22 15:20 95 Room Air 03/09/22 15:10 96 Room Air 03/09/22 12:56 97 Room Air 03/09/22 08:12 95 Room Air 03/08/22 23:14 03/08/22 21:16 94 Room Air 03/08/22 19:47 94 Room Air Pain Intensity Right Hip: Pain Intensity: 3 Transfer of Care Handoff Completed per policy Notes Mental Status: alert / awake / arousable Patient Amnestic to Procedure: Yes Nausea / Vomiting: adequately controlled Pain: adequately controlled Airway Patency, RR, SpO2: stable & adequate BP & HR: stable & adequate Hydration State: stable & adequate Anesthetic Complications: no major complications apparent and Pt Satisfied with anesthetic care
--- NOTE | 2022-03-09 16:01 | Fluoroscopy Report ---
FL cholangiogram OR CLINICAL HISTORY: Intraoperative cholangiogram. COMPARISON STUDY: CT of the abdomen and pelvis and right upper quadrant ultrasound March 05, 2022. Fluoroscopic images from ERCP March 07, 2022. FLUOROSCOPY TIME: 2 seconds. FLUOROSCOPIC IMAGES: 1 FINDINGS: Fluoroscopy was provided during intraoperative cholangiogram. There is contrast within the duodenum. Intrahepatic bile ducts are partially opacified. Biliary stent remains in place. Apparent i rregularity of the distal common bile duct is noted. This may be technical. Sensitivity for detection of common bile duct calculi is diminished given the indwelling stent. IMPRESSION: Fluoroscopy provided during intraoperative cholangiogram, as described above. ACT 112: Negative or not required by law. Electronically signed by: Richy Dial M.D. 03/09/2022 4:00 PM
--- NOTE | 2022-03-09 18:47 | Billing Data ---
Date of Service March 09, 2022 Coding Level of Care Code 83856 Subseq Hosp Care Lvl 2
--- NOTE | 2022-03-09 18:47 | Billing Data ---
Date of Service March 09, 2022 Coding Level of Care Code 64241 Subseq Hosp Care Lvl 2
[2022-03-09] MEDS: amLODIPine BESYLATE 5 MG TAB PO SCH (21:03)
[2022-03-09] MEDS: ACETAMINOPHEN 325 MG TAB PO PRN (21:14)
[2022-03-10] MEDS: PIPERACILLIN/TAZOBACTAM 3.375 GM in DEXTROSE 5% 100 ML IV SCH (05:40)
--- NOTE | 2022-03-10 05:55 | Surgery Progress Note ---
Date of Service March 10, 2022 Assessment & Plan (1) Cholelithiasis: Plan: Operative procedure explained to the patient We will increase her diet DC IV fluids increase activity and plan for discharge tomorrow All question answered Admission and Anticipated Discharge Date Admission Date: March 05, 2022 Subjective No real issues since surgery denies any abdominal pain feels weak and would like to stay here another day if possible Physical Exam Physical Exam: Alert coherent Sclera nonicteric The abdomen is completely benign trocar sites without ecchymotic areas Results & Data ([facility]) Vital Signs (Past 12 Hours) Vital Signs Temp Pulse Resp BP BP Pulse Ox O2 Del Method 03/09/22 21:07 36.7 C 72 16 152/72 H 94 Room Air 03/09/22 19:02 36.6 C 68 16 160/73 H 95 Room Air PG Care Time/CCT Total # of Minutes Spent Total Time Spent with Patient: Total time spent is greater than 50% in coordination of care (as documented) at patient's floor/unit and/or counseling patient: Coding Level of Care Code None Diagnoses Cholelithiasis K80.20
[2022-03-10] MEDS ORDERED: ACETAMINOPHEN 325 MG TAB PO PRN (05:57)
--- NOTE | 2022-03-10 07:12 | Hospitalist Progress Note ---
Date of Service March 10, 2022 Assessment & Plan (1) Choledocholithiasis: Plan: Choledocholithiasis - Presented with acute-onset upper abdominal pain. - US Gallbladder and CT A&P w/ evidence of choledocholithiasis, thickening of gallbladder, gallstones present in gallbladder w/o evidence of cholecystitis. - Patient started on Zosyn empirically. -->d/c'd 03/10 - lipase negative, hbg stable - GI consulted for ERCP performed 03/07, 1 stone removed stent placed - Gen Surgery consulted - Continue Zosyn, NPO, IV fluids, analgesics, anti-emetics. - cholecystectomy 03/09 tolerated well with biopsies of liver mass pending - Trend LFTs HTN, HLD: - Continue home amlodipine, metoprolol, rosuvastatin, ASA 81mg. Hypokalemia -repleted Diet: regular diet DVT Prophylaxis: SCDs Code status: Full code Dispo: Med/Surg (2) Hypertension: Admission and Anticipated Discharge Date Admission Date: March 05, 2022 Supervising Physician Co-Signing Physician Notes I personally examined the patient and verified all de la paz points of history and exam, discussed case, and agree with decision making with Dr Viveros. Pain and nausea overall under control, although she had a bout of pain whenever she left. Wonders about biopsy results. Vitals noted, sleeping comfortably, no distress. HEENT normocephalic atraumatic mucous membranes moist. Breathing unlabored no accessory muscle use good effort. Skin shows no rashes no pallor or icterus. Neuro without focal deficit at rest. Choledocholithiasispost ERCP, post choley, doing well, biopsy pending, hopefully home soon Otherwise as above Subjective Patient seen at bedside, calm comfortable cooperative. She tolerated her surgery well yesterday, was eating regular breakfast without difficulty no nausea vomitting SOB chest pain abd pain. Still describes occasional abd tightness. Is otherwise doing well, states she would like one more day to ensure she is doing well post surgical intervention. Patient informed of mass found on liver. Review of Systems Review of Systems: Negative fever chills Negative headache dizziness Negative chest pain palpitations SOB Negative nausea vomitting diarrhea constipation Physical Exam Constitutional: WD/WN, vitals as above Eyes: PERRL, conjunctivae normal, anicteric sclerae ENMT: external ear and nose normal, oropharynx normal Neck: trachea midline, no thyromegaly Respiratory: normal respiratory effort, lungs clear to auscultation Cardiovascular: Rate/Rhythm: regular rate and regular rhythm Gastrointestinal (Abdomen): Inspection/Auscultation: abdomen normal to inspection Percussion/Palpation: abdomen soft; abdomen nontender Incisions noted on abd clean dry healing well Skin: no rashes, warm and dry Results & Data Results & Data ([facility]) Vital Signs (Past 12 Hours) Vital Signs Temp Pulse Resp BP Pulse Ox O2 Del Method 03/10/22 07:08 36.7 C 68 16 137/69 96 Room Air 03/09/22 21:07 36.7 C 72 16 152/72 H 94 Room Air Laboratory Results 03/10/22 03/10/22 Range/Units 07:16 07:16 WBC 7.87 (4.8-10.8) K/ul RBC 3.92 L (3.93-5.22) M/uL Hgb 12.3 (12.0-16.0) g/dl Hct 36.0 (34.1-44.9) % MCV 91.8 (80.0-100.0) fL MCH 31.4 (25.0-34.0) pg MCHC 34.2 (32.0-36.0) g/dL RDW Std Deviation 42.8 (36.4-46.3) fL RDW Coeff of Minda 12.9 (11.5-14.5) % Plt Count 247 (130-400) K/uL MPV 10.0 (9.4-12.3) fL Immature Gran % (Auto) 0.3 % Neut % (Auto) 82.0 % Lymph % (Auto) 8.9 % [place] % (Auto) 8.5 % Eos % (Auto) 0.0 % Baso % (Auto) 0.3 % Neut # (Auto) 6.46 (1.4-6.5) K/uL Lymph # (Auto) 0.70 L (1.2-3.4) K/uL [place] # (Auto) 0.67 (0.24-0.82) K/uL Eos # (Auto) 0.00 (0-0.50) K/uL Baso # (Auto) 0.02 (0-0.2) K/uL Immature Gran # (Auto) 0.02 (0.00-0.02) K/uL Sodium 138 (136-145) mmol/L Potassium 3.7 (3.5-5.1) mmol/L Chloride 109 H (98-107) mmol/L Carbon Dioxide 20 L (21-32) mmol/L Anion Gap 9 (3-11) BUN 14 (6-23) mg/dl Creatinine 0.67 (0.6-1.2) mg/dl Est Cr Clr Drug Dosing 50.8 ml/min Est GFR ( Amer) 92.9 ml/min Est GFR (Non-Af Amer) 80.2 ml/min BUN/Creatinine Ratio 20.9 H (10-20) Glucose 102 H (70-99(Fasting)) mg/dl Calcium 8.5 (8.5-10.1) mg/dl Total Bilirubin 0.5 (0.2-1.0) mg/dl Direct Bilirubin 0.1 (0-0.2) mg/dl AST 19 (13-39) U/L ALT 30 (7-52) U/L Alkaline Phosphatase 46 (34-104) U/L Total Protein 6.1 (6.0-8.3) gm/dl Albumin 3.6 (3.4-5.0) gm/dl Medications Administered Current Inpatient Medications Acetaminophen (Acetaminophen 325 Mg Tab) 650 mg PO Q4H PRN PRN Reason: pain/fever Stop: 04/04/22 23:32 Last Admin: 03/10/22 09:57 Dose: 650 mg Acetaminophen (Acetaminophen 325 Mg Tab) 650 mg PO Q4H PRN PRN Reason: Mild Pain Stop: 04/09/22 05:56 Amlodipine Besylate (Amlodipine Besylate 5 Mg Tab) 2.5 mg PO HS [place] Stop: 04/05/22 20:59 Last Admin: 03/09/22 21:03 Dose: 2.5 mg Aspirin (Aspirin 81 Mg Ectab) 81 mg PO DAILY [place] Stop: 04/05/22 08:59 Last Admin: 03/06/22 08:41 Dose: 81 mg Metoprolol Succinate (Metoprolol Succ 25mg Ext Rel Tab) 25 mg PO DAILY [place] Stop: 04/05/22 08:59 Last Admin: 03/10/22 09:11 Dose: 25 mg Ondansetron HCl (Ondansetron Inj 2 Mg/Ml 2 Ml Vial) 4 mg IV Q6H PRN PRN Reason: Nausea And Vomiting Stop: 04/05/22 02:15 Rosuvastatin Calcium (Rosuvastatin Calcium 5 Mg Tab) 5 mg PO DAILY [facility] Stop: 04/05/22 08:59 Last Admin: 03/10/22 09:11 Dose: 5 mg Resident Activity Tracking Resident Involvement: Resident Care Provided Care Provided: Adult Hospital Medicine
[2022-03-10 07:37] LABS: Basophils # (auto) 0.02 K/uL (0-0.2); Basophils % (auto) 0.3 %; Hemoglobin 12.3 g/dl (12.0-16.0); Immature Granulocytes # (auto) 0.02 K/uL (0.00-0.02); Immature Granulocytes % (auto) 0.3 %; Lymphocytes % (auto) 8.9 %; Mean Corpuscular Hemoglobin 31.4 pg (25.0-34.0); Mean Corpuscular Hgb Conc 34.2 g/dL (32.0-36.0); Mean Corpuscular Volume 91.8 fL (80.0-100.0); Monocytes # (auto) 0.67 K/uL (0.24-0.82); Monocytes % (auto) 8.5 %; Neutrophils # (auto) 6.46 K/uL (1.4-6.5); Platelet Count 247 K/uL (130-400); RDW Coefficient of Variation 12.9 % (11.5-14.5); RDW Standard Deviation 42.8 fL (36.4-46.3); Red Blood Count 3.92 M/uL (3.93-5.22); White Blood Count 7.87 K/ul (4.8-10.8)
[2022-03-10 08:07] LABS: Albumin Level 3.6 gm/dl (3.4-5.0); BUN Creatinine Ratio 20.9 (10-20); Bilirubin Direct 0.1 mg/dl (0-0.2); Bilirubin,Total 0.5 mg/dl (0.2-1.0); Calcium 8.5 mg/dl (8.5-10.1); Creatinine Clr Calc Pharmacy 50.8 ml/min; Est GFR (African American) 92.9 ml/min; Est GFR (Non-African American) 80.2 ml/min; Potassium 3.7 mmol/L (3.5-5.1); Total Protein 6.1 gm/dl (6.0-8.3)
[2022-03-10] MEDS: METOPROLOL SUCC 25MG EXT REL TAB PO SCH (09:11)
[2022-03-10] MEDS: ROSUVASTATIN CALCIUM 5 MG TAB PO SCH (09:11)
[2022-03-10] MEDS: ACETAMINOPHEN 325 MG TAB PO PRN ×2 (09:57→21:38)
--- NOTE | 2022-03-10 20:06 | Billing Data ---
Date of Service March 10, 2022 Coding Level of Care Code 91237 Subseq Hosp Care Lvl 2
[2022-03-10] MEDS: amLODIPine BESYLATE 5 MG TAB PO SCH (21:36)
--- NOTE | 2022-03-11 06:54 | Discharge Summary ---
Date of Service March 11, 2022 Admission HPI Per Admitting Provider ERCP for choledocholithiasis Admission Exam Per Admitting Provider Constitutional: comfortable; no acute distress Respiratory: normal respiratory effort, lungs clear to auscultation Cardiovascular: RRR, no murmur, no edema Gastrointestinal (Abdomen): normal bowel sounds, soft, nontender, no hepatosplenomegaly Principal Diagnosis Choledocholithiasis Discharge Exam Constitutional WD/WN, vitals as above Eyes PERRL, conjunctivae normal, anicteric sclerae ENMT external ear and nose normal, oropharynx normal Neck trachea midline, no thyromegaly Respiratory normal respiratory effort, lungs clear to auscultation Cardiovascular Rate/Rhythm: regular rate and regular rhythm Gastrointestinal (Abdomen) Inspection/Auscultation: abdomen normal to inspection Percussion/Palpation: abdomen soft; abdomen nontender Skin no rashes, warm and dry Discharge Data Allergies Allergy/AdvReac Type Severity Reaction Status Date / Time codeine AdvReac Unknown VOMITTING Verified 03/06/22 00:27 Consultations 03/05/22 23:43 ED Decision to Admit Stat 03/05/22 23:45 Consult Gastroenterology Routine Consult General Surgery Routine Procedures Performed Operation Date: 03/07/22 11:25 Actual Procedures p Endoscopic retrograde cholangiopancreatography. - Margarita Mccullough MD Operation Date: 03/09/22 13:30 Actual Procedures p Laparoscopic Cholecystectomy with Cholangiogram - Damon Louise MD, FACS Ordered Studies 03/05/22 21:43 CT abd pelvis IV con only Stat US gallbladder Stat 03/07/22 16:00 [place] ERCP biliary ductal Routine 03/09/22 13:30 [place] cholangiogram OR Routine Hospital Course (1) Choledocholithiasis: -F/u with PCP in 1 week -F/u with surgery in 1 week for incision check -F/u with GI in 2 months for bile stent removal -recheck BMP in 1 week for BMP -patient instructed to avoid submerging incisions in deep water and avoid nsaids for now until healed. Choledocholithiasis - Presented with acute-onset upper abdominal pain. - US Gallbladder and CT A&P w/ evidence of choledocholithiasis, thickening of gallbladder, gallstones present in gallbladder w/o evidence of cholecystitis. - Patient started on Zosyn empirically. -->d/c'd 03/10 - lipase negative, hbg stable - GI consulted for ERCP performed 03/07, 1 stone removed stent placed - Gen Surgery consulted - cholecystectomy 03/09 tolerated well with biopsies of liver mass pending HTN, HLD: - Continue home amlodipine, metoprolol, rosuvastatin, ASA 81mg. Hypokalemia -repleted -check BMP in 1 week (2) Hypertension: Total Time Total Time Spent Total Time Spent (In Minutes): <30 Discharge Plan Discharge Items Patient Disposition: Home - Self-Care Reason For Visit: CHOLEDOCOLITHIASIS Discharge Diagnosis: Choledocolithiasis Condition on Discharge: Good Activity: Per Instructions section Lifting: No more than 10 pounds Bathing Comment: may shower; no soaking in tubs/pools Exercise/Sports: Wait until after follow-up appointment Driving/Machine Use: no driving while taking any narcotics for pain Non-emergency contact: Primary Care Provider Call non-emergency contact if: you have any medication questions, your symptoms worsen, your pain is not controlled and you have a fever Follow-up/Referrals: Selena Bloom MD [Primary Care Provider] - 03/18/22 3:00 pm (APPT WITH YANICK GARRIDO) Damon Louise MD, FACS [Surgeon] - 03/22/22 2:30 pm (Please call to schedule follow up in clinic within 1 week) Margarita Mccullough MD [Physician] - 03/11/22 1:23 pm (follow up in 2 months for bile stent YOU NEED TO CALL OFFICE [phone] TO SCHEDULE THIS APPOINTMENT. OFFICE STAFF NEEDS TO ASK SOME QUESTIONS BEFORE THEY WILL SCHEDULE YOU.) Diet: Regular Addtl Attending Provider Instructions: You were admitted to the hospital for Gallstones stuck in your bile duct. You were seen by the director of special events, who removed the gallstones from your duct and placed a stent there to keep the dust open. You were seen by surgery, who removed your gallbladder. Please avoid baths and swimming pools for the next week. You may have showers during this time. After washing, please keep your incision sites clean and dry. If you note any redness leaking or pus out of your insicion site please contact your PCP. Please avoid NSAID type pain medication at this time, such as ibuprofen, naproxen, motrin, aspirin, celebrex, etc. You may take tylenol as needed for pain control. Check in with your PCP for when it is appropriate to restart NSAID type medication. During your surgery, a small mass was noted on your liver. The surgeons took a biopsy of the mass, and we have found it is from your liver cysts. A discharge summary will be sent to your primary care physician to ensure continuity of care. Please bring this discharge summary with you to your next office appointment so that your provider can review it at that time. Follow-up appointments: Make a follow-up appointment with your PCP within the next week. It is very important that you follow up with them shortly after discharge from the hospital. Please see your surgeon in 1 week to check on your incision sites. Please see your [employer] Worker in 2 months to remove your bile stent. Keep all your follow-up appointments as already scheduled. If you cannot make an appointment, notify your provider. Medications: Your medication list has been reviewed and reconciled upon discharge to ensure accuracy and continuity of care. An updated list of all your medications is included with your hospital discharge paperwork. Please review this list closely, and make note of any changes. Take your medications as instructed; do not skip a dose of your medicines. Make sure all of your doctors know every medicine you are taking (including [id number] medicines, vitamins, and supplements). Call your primary care provider before taking any new medicines (including [id number] medicines, vitamins, and supplements), because some of these may interact with your current medications, or may make your symptoms worse. Tell your primary care provider if you cannot afford your medications. CONTACT YOUR PRIMARY CARE PROVIDER if you experience any of the following: Worsening abdominal pain, nausea fever, rashes, leakage of incision sites Difficulty following your treatment plan, or difficulty taking medications CALL 911 OR GO TO THE EMERGENCY DEPARTMENT if you experience any of the following: Sudden, severe abdominal pain or nausea/vomiting Severe chest pain, or chest pain that radiates (moves) to your jaw or arm Sudden, severe shortness of breath or difficulty breathing Thank you for allowing us to participate in your care. Pending Studies at Discharge: No Stand-Alone Forms: [employer], Smoking Cessation Medications and DC Order Prescriptions: Continued rosuvastatin 5 mg tablet 5 mg PO DAILY Qty: 90 3RF cholecalciferol (vitamin D3) 25 mcg (1,000 unit) capsule 25 mcg PO DAILY Qty: 30 0RF calcium carbonate [Calcium 600] 600 mg calcium (1,500 mg) tablet 600 mg PO DAILY vitamin B complex [B Complex-Vitamin B12] Tablet 1 tab PO DAILY metoprolol succinate 25 mg capsule,sprinkle,ER 24hr 25 mg PO DAILY amlodipine 2.5 mg tablet 2.5 mg PO DAILY Discontinued aspirin 81 mg tablet,delayed release (DR/EC) 81 mg PO DAILY Qty: 30 2RF Discharge Orders: Discharge Order (Routine); Ordered 03/11/22 Ordered By: Joanna Lakhani/Other Patient Handouts: After Gallbladder Surgery, Having Laparoscopic Cholecystectomy Admission Data Admit Date/Time: 03/05/22 23:34 Attending Provider: Edilson Burks Admit Provider: Edilson Mosley Primary Care Provider: Selena Bloom V. Other Providers: Rukhsana Arrington ; Cassy De León ; Alireza Jackson ; Damon Louise Other Interventions: Discharge Summary Assessment (RN) Last Done: 03/11/22 12:49 Supervising Physician Co-Signing Physician Notes I personally examined the patient and verified all de la paz points of history and exam, discussed case, and agree with decision making with Dr Viveros. feels good and would like to go home Vitals noted, sleeping comfortably, no distress. HEENT normocephalic atraumatic mucous membranes moist. Breathing unlabored no accessory muscle use good effort. Skin shows no rashes no pallor or icterus. Neuro without focal deficit at rest. Choledocholithiasispost ERCP, post choley, doing well, biopsy benign, safe/stable for home Otherwise as above Resident Activity Tracking Resident Involvement: Resident Care Provided Care Provided: Adult Hospital Medicine
[2022-03-11 08:34] LABS: Hematocrit (blood only) 36.9 % (34.1-44.9); Hemoglobin 12.6 g/dl (12.0-16.0); Mean Corpuscular Hemoglobin 31.9 pg (25.0-34.0); Mean Corpuscular Hgb Conc 34.1 g/dL (32.0-36.0); Mean Corpuscular Volume 93.4 fL (80.0-100.0); Mean Platelet Volume 9.9 fL (9.4-12.3); Platelet Count 241 K/uL (130-400); RDW Coefficient of Variation 13.1 % (11.5-14.5); RDW Standard Deviation 44.8 fL (36.4-46.3); Red Blood Count 3.95 M/uL (3.93-5.22); White Blood Count 6.74 K/ul (4.8-10.8)
[2022-03-11 08:59] LABS: Albumin Globulin Ratio 1.5 (0.9-2); Albumin Level 3.7 gm/dl (3.4-5.0); BUN Creatinine Ratio 23.6 (10-20); Bilirubin,Total 0.4 mg/dl (0.2-1.0); Creatinine Clr Calc Pharmacy 47.3 ml/min; Est GFR (African American) 88.5 ml/min; Est GFR (Non-African American) 76.4 ml/min; Globulin 2.5 gm/dl (2.5-4.0); Potassium 3.4 mmol/L (3.5-5.1); Total Protein 6.2 gm/dl (6.0-8.3)
[2022-03-11] MEDS: ROSUVASTATIN CALCIUM 5 MG TAB PO SCH (09:45)
[2022-03-11] MEDS: METOPROLOL SUCC 25MG EXT REL TAB PO SCH (09:45)
[2022-03-11] MEDS ORDERED: POTASSIUM CHLORIDE CRTAB 20 MEQ TABCR PO ONE (11:45)
--- NOTE | 2022-03-11 19:53 | Billing Data ---
Date of Service March 11, 2022 Coding Level of Care Code D/C DAY MANAGEMENT <30 MINS
== END 2022-03-11 15:00 | disposition home or self-care (01) | DRG 419 ==
LOC: ED 20:33 → 3W 23:34 → SUATTDRO 23:34 → 3W 03-06 01:30

== ENCOUNTER 2022-09-08 05:04 | Observation (INO) ==
--- NOTE | 2022-08-22 16:04 | PAT Medication Instructions ---
Medication Instructions Date of Service August 22, 2022 Home Medications metoprolol succinate 25 mg capsule sprinkle, ext. release 24 hr 25 mg PO QAM acetaminophen 500 mg tablet (Tylenol Extra Strength) 500 mg PO Q6H PRN Pain cholecalciferol (vitamin D3) 25 mcg (1,000 unit) capsule 25 mcg PO QPM rosuvastatin 5 mg tablet 5 mg PO QAM amlodipine 5 mg tablet 5 mg PO HS aspirin 81 mg tablet,delayed release 81 mg PO QAM calcium 500 mg tablet 1,000 mg PO QPM cyanocobalamin (vitamin B-12) 1,000 mcg tablet (Vitamin B-12) 1,000 mcg PO QPM nystatin 100,000 unit/gram topical powder 1 applic topical BID PRN Skin Irritation triamcinolone acetonide 0.1 % topical cream 1 applic topical BID PRN eczema STOP taking 24 hours before surgery nystatin 100,000 unit/gram topical powder 1 applic topical BID PRN Skin Irritation triamcinolone acetonide 0.1 % topical cream 1 applic topical BID PRN eczema Take morning of surgery With a small sip of water, OTHERWISE NOTHING TO EAT OR DRINK AFTER MIDNIGHT: metoprolol succinate 25 mg capsule sprinkle, ext. release 24 hr 25 mg PO QAM acetaminophen 500 mg tablet (Tylenol Extra Strength) 500 mg PO Q6H PRN Pain (if needed) rosuvastatin 5 mg tablet 5 mg PO QAM aspirin 81 mg tablet,delayed release 81 mg PO QAM (unless surgeon directed otherwise) Take evening before surgery acetaminophen 500 mg tablet (Tylenol Extra Strength) 500 mg PO Q6H PRN Pain (if needed) cholecalciferol (vitamin D3) 25 mcg (1,000 unit) capsule 25 mcg PO QPM amlodipine 5 mg tablet 5 mg PO HS calcium 500 mg tablet 1,000 mg PO QPM cyanocobalamin (vitamin B-12) 1,000 mcg tablet (Vitamin B-12) 1,000 mcg PO QPM Other Notes If you have any questions please call us at [phone] or [phone] or [phone] or [phone]
--- NOTE | 2022-08-26 09:14 | Anesthesiology Consultation ---
Date of Service August 26, 2022 Assessment & Plan (1) Encounter for pre-operative examination: - awaiting stress test and final [facility] cardiology clearance. - cardiology pre-op evaluation 08/17/22 [facility]: "...preoperative cardiology consultation prior to elective right total hip replacement by Dr. Dell Moreno of [facility], at [facility] on September 08, 2022. Pre-admission testing is scheduled on August 26, 2022...recommend referral for risk stratification dobutamine stress echocardiography. Increase amlodipine to 5 mg/day for additional blood pressure control. Continue metoprolol as prescribed. Continue aspirin and statin. If stress testing is OK and blood pressure is controlled following titration of amlodipine, patient would be considered an acceptable candidate for surgery as planned. Continue metoprolol, aspirin, and amlodipine without perioperative interruption..." - PCP pre-op evaluation 08/16/22 [facility]: "...Right hip osteoarthritis to the point necessity for surgical intervention plan for total right hip arthroplasty September 08, 2022 with spinal anesthesia- medically clear to proceed/acceptable pending cardiac clearance and preop evaluation by Anesthesia..." - Case discussed in detail with Dr. Mullins who advised nothing additional is needed other than above pending cardiology testing and clearance. - Outpatient joint assessment: Patient is currently scheduled for inpatient pathway. If re-evaluated pending system levels during current pandemic/surgeon requests outpatient pathway, patient is not acceptable candidate for outpatient joint program from anesthesia standpoint. Chart Review Chart Review: Pending: Refer to Additional Notes / Consult section and Patient seen in Pre Admission Testing Teaching & Discussion Pre-Anesthesia Teaching/Discussion Notes: Instructed NPO after midnight before surgery, except medications with 15 cc of water. Medication instructions provided according to the PAT guidelines. History Surgery Operation Date: 09/08/22 07:00 Proposed Procedures p Right Total Hip Arthroplasty - Dell Moreno MD Height/Weight Height: 5 ft 2 in Weight: 51.256 kg Allergies Allergy/AdvReac Type Severity Reaction Status Date / Time codeine AdvReac Unknown VOMITING Verified 08/26/22 09:18 Medications Home Medications Medication Instructions Recorded Confirmed Last Taken metoprolol succinate 25 mg capsule 25 mg PO QAM 06/23/20 08/19/22 06/03/22 07:00 sprinkle, ext. release 24 hr acetaminophen 500 mg tablet 500 mg PO Q6H PRN Pain 03/18/22 08/19/22 Unknown (Tylenol Extra Strength) cholecalciferol (vitamin D3) 25 25 mcg PO QPM 05/27/22 08/19/22 06/02/22 07:00 mcg (1,000 unit) capsule rosuvastatin 5 mg tablet 5 mg PO QAM 05/27/22 08/19/22 06/02/22 20:00 amlodipine 5 mg tablet 5 mg PO HS 08/19/22 08/19/22 Unknown aspirin 81 mg tablet,delayed 81 mg PO QAM 08/19/22 08/19/22 Unknown release calcium 500 mg tablet 1,000 mg PO QPM 08/19/22 08/19/22 Unknown cyanocobalamin (vitamin B-12) 1,000 mcg PO QPM 08/19/22 08/19/22 Unknown 1,000 mcg tablet (Vitamin B-12) nystatin 100,000 unit/gram topical 1 applic topical BID PRN Skin 08/19/22 08/19/22 Unknown powder Irritation triamcinolone acetonide 0.1 % 1 applic topical BID PRN eczema 08/19/22 08/19/22 Unknown topical cream Past Medical History Medical History CAD (coronary artery disease) coronary artery calcification per [facility] cardio records, upcoming stress test 08/30/22 DDD (degenerative disc disease), lumbar Diverticulosis of colon Hyperlipidemia Hypertension PCP recently increased Amlodipine: saw Dr. Jackson day after PCP visit, concerning elevated blood pressure. Cardio ordered stress test on 08/30/22, at [facility]. PPD positive Negative blood test for TB 2018 Patient denies h/o stroke, seizures, heart attack, heart failure, DM, blood clots or blood transfusions. Exercise / Class Metabolic Activity II 4-5 Yardwork/Stairs/Walk up hill (denies chest discomfort or shortness of breath with 1 FOS) Past Family History Family History Sister Lung cancer Mother Stroke Brother Stroke Other Cancer Heart disease Tuberculosis Denies family history of Ovarian cancer Prostate cancer Myocardial infarction Breast cancer Colorectal cancer Past Surgical History Surgical History H/O elbow surgery right History of cataract surgery right History of ERCP 03/07/22; Stent Removed 05/2022 History of tonsillectomy History of tooth extraction S/P laparoscopic cholecystectomy (03/09/22) Laparoscopic Cholecystectomy with Cholangiogram - Damon Louise MD, FACS Grade 1 view, Camacho 2, ETT 7. Past Anesthesia History No Hx of Anesthesia Complications and No Family Hx of Anesthesia Complications History of PONV No Hx of PONV and No Hx of Motion Sickness Social History Smoking Status: Never smoker Do You Dip or Chew Tobacco: No Hx Alcohol Use: Yes Alcohol type: wine alcohol intake frequency: other Alcohol Intake Frequency Comment: 1 GLASS ON SUNDAYS W/DINNER Hx Substance Use: No substance use type: does not use Review of Systems Patient denies chest pain, shortness of breath, dyspnea on exertion, snoring, witnessed apneas, reflux, fever, chills, cough, wheezing, or palpitations. Physical Exam Vital Signs Vitals BP 121/70 manual P 69 TEMP 97.9 SP02 95% on RA RESP 17 Physical Full cervical extension range of motion without pain TMD 3.5 finger breadths Mallampati Score 2 Dentition: implants-lower back bilat, denies chipped or loose teeth, caps/crowns or bridges Lungs: normal respiratory effort. Clear throughout to auscultation, no adventitious breath sounds Cardiac: regular rate and rhythm, no murmurs noted Carotid arteries: negative bruit bilat Lab Results Anesthesia Preop Results Results Anesthesia Widget: WBC 7.93 K/ul (4.8-10.8) 08/26/22 Hgb 13.4 g/dl (12.0-16.0) 08/26/22 Hct 40.7 % (37.0-47.0) 08/26/22 Plt 266 K/uL (130-400) 08/26/22 Na 138 mmol/L (136-145) 08/26/22 K 3.5 mmol/L (3.5-5.1) 08/26/22 Cl 106 mmol/L (98-107) 08/26/22 CO2 25 mmol/L (21-32) 08/26/22 BUN 15 mg/dl (6-23) 08/26/22 Creat 0.76 mg/dl (0.6-1.2) 08/26/22 Glucose Level 100 mg/dl (70-99(Fasting)) H 08/26/22 PT 10.3 Seconds (9.0-12.0) 08/26/22 PTT 27.3 Seconds (21.0-31.0) 08/26/22 INR 1.0 (0.9-1.1) 08/26/22 Urine Color Yellow 08/26/22 Urine Appearance Clear (Clear) 08/26/22 Urine pH 5.0 (4.5-7.5) 08/26/22 Urine Specific [place] 1.009 (1.000-1.030) 08/26/22 Urine Protein Negative (Negative) 08/26/22 Urine Glucose (UA) Negative (Negative) 08/26/22 Urine Ketones Trace (Negative) H 08/26/22 Urine Blood Negative (Negative) 08/26/22 Urine Nitrite Negative (Negative) 08/26/22 Urine Bilirubin Negative (Negative) 08/26/22 Urine Urobilinogen Negative (Negative) 08/26/22 Urine Leukocyte Esterase Trace (Negative) H 08/26/22 Urine WBC (Auto) 1-5 /hpf (0-5) 08/26/22 Urine RBC (Auto) 0-4 /hpf (0-4) 08/26/22 Urine Hyaline Casts (Auto) 1-5 /lpf (0-5) 08/26/22 Urine Epithelial Cells (Auto) >30 /lpf (0-5) H 08/26/22 Urine Bacteria (Auto) Negative (Negative) 08/26/22 Urine Yeast Not Reportable 07/12/22 Blood Type O Positive 08/26/22 Antibody Screen NEGATIVE 08/26/22 Testing Electrocardiogram Date: 08/17/22 NSR, rate 65 bpm Chest X-Ray Date: 08/26/22 1. No acute cardiopulmonary abnormality. 2. Chronic interstitial thickening and nodularity is similar to previous. 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 Echocardiogram Date: 07/01/19 EF 55-60% Grade I diastolic dysfunction No regional wall motion abnormalities No significant valvular abnormalities Other Testing Abdomen pelvis CT 03/05/22 Choledocholithiasis is seen with associated dilation of the common bile duct. There is thickening of the gallbladder wall which may reflect a secondary cholecystitis. Cholelithiasis is seen. COVID-19 Risk Screen Screening Information COVID-19 Screen Date: 08/26/22 Exposure 21 Days Family/Household +COVID Last 21 Days: No Exposure 10 Days Any COVID Exposure Last 10 Days: No Symptoms Last 10 Days Experienced COVID Sx Last 10 Days: No + COVID 0-90 Days COVID + in Last 0-90 Days: No
[2022-09-08] MEDS ORDERED: LR 60ML/HR IV SCH (06:00)
[2022-09-08] MEDS ORDERED: ceFAZolin 2000MG 2,000 MG/15 ML SYR IV SCH (06:00)
[2022-09-08] MEDS ORDERED: LR 500ML BOLUS, THEN 15ML/HR IV SCH (06:00)
[2022-09-08] MEDS ORDERED: dexAMETHasone 4 MG TAB PO SCH (06:00)
[2022-09-08] MEDS ORDERED: Scopolamine 1 MG TDSY TD SCH (06:00)
[2022-09-08] MEDS ORDERED: ROPIVACAINE 0.5% HCL/PF 150 MG, BUPIVACAINE 0.75% MPF 20 ML, EPINEPHrine 0.15 MG, Ketor... INFIL SCH (06:00)
[2022-09-08] MEDS ORDERED: FAMOTIDINE 20 MG TAB PO SCH (06:00)
[2022-09-08] MEDS ORDERED: ACETAMINOPHEN 500 MG TAB PO SCH (06:00)
[2022-09-08] MEDS ORDERED: TRANEXAMIC ACID 1,000 MG **IV Pre-op IV SCH (06:00)
[2022-09-08] MEDS ORDERED: traMADol HCL 50 MG TABLET PO SCH (06:00)
[2022-09-08] MEDS ORDERED: TRANEXAMIC ACID 1,000 MG **IV Intra-op IV SCH (06:00)
[2022-09-08] MEDS ORDERED: CeleBREX 200 MG CAP PO SCH (06:00)
[2022-09-08] MEDS ORDERED: BUPIVACAINE 0.5 % 5 MG/1 ML PF 10ML VIAL ONE (06:19)
--- NOTE | 2022-09-08 06:34 | History & Physical Bridge Note ---
Date of Service September 08, 2022 History & Physical Bridge Note I have examined the patient, reviewed the History & Physical and in the interval since the performance of the History & Physical I have noted the following changes of clinical significance: no changes noted
[2022-09-08] MEDS ORDERED: ORTHO JOINT ANESTHETIC ONE (06:37)
[2022-09-08] MEDS ORDERED: ePHEDrine sulfate 50 MG/ML AMP IV PRN (07:03)
[2022-09-08] MEDS ORDERED: ATROPINE SULFATE 0.1 MG/ML 10ML SYR IV PRN (07:03)
[2022-09-08] MEDS ORDERED: ONDANSETRON INJ 2 MG/ML 2 ML VIAL IV PRN ×2 (07:03→08:42)
[2022-09-08] MEDS ORDERED: ePHEDrine sulfate 50 MG/ML AMP ONE (07:13)
[2022-09-08] MEDS ORDERED: LIDOCAINE 2% MPF LOCAL 5 ML VIAL ONE (07:13)
[2022-09-08] MEDS ORDERED: PHENYLEPHRINE HCL 10 MG/ML VIAL ONE (07:13)
[2022-09-08] MEDS ORDERED: PROPOFOL IV EMULSION 10 MG/ML 20 ML VIAL IV ONE (07:13)
[2022-09-08] MEDS ORDERED: ONDANSETRON INJ 2 MG/ML 2 ML VIAL ONE (07:13)
[2022-09-08] MEDS ORDERED: traMADol HCL 50 MG TABLET PO PRN (08:42)
[2022-09-08] MEDS ORDERED: MAGNESIUM HYDROXIDE SUSP 30 ML UDC PO PRN (08:42)
[2022-09-08] MEDS ORDERED: HYDROmorphone INJ 0.5 MG/0.5 ML SYR IV PRN (08:42)
[2022-09-08] MEDS ORDERED: NALOXONE HCL 0.4 MG/1 ML VIAL/CARP IV PRN (08:42)
[2022-09-08] MEDS ORDERED: ALUMINUM/MAGNESIUM SUSP 30 ML UDC PO PRN (08:42)
[2022-09-08] MEDS ORDERED: METOCLOPRAMIDE HCL INJ 5 MG/ML 2 ML VIAL IV PRN (08:42)
[2022-09-08] MEDS ORDERED: bisacodyL 10 MG SUPP PR PRN (08:42)
[2022-09-08] MEDS ORDERED: diphenhydrAMINE 50 MG/ML VIAL IV PRN (08:42)
--- NOTE | 2022-09-08 08:42 | Operative Report ---
Post Operative Report Pre & Post Diagnosis Operation Date: 09/08/22 07:00 Pre-Op Diagnosis: Unilateral Primary Osteoarthritis, Right Hip Post-Op Diagnosis: Unilateral Primary Osteoarthritis, Right Hip I identified the patient and participated in the time-out.: Yes Procedure Operation Date: 09/08/22 07:00 Actual Procedures p Right Total Hip Arthroplasty, Uncemented(Right) - Dell Moreno MD Surgeon Dell Moreno MD Qa Manager Celina Myers PA-C Estimated Blood Loss 100 Findings Consistent with Post-Op Diagnosis Specimens femoral head Description of Procedure I was present during the entire procedure assisting with positioning, prepping, draping, wound retraction, wound closure, dressing and abduction pillow placement. NO fellow present. Please see Dr. Moreno procedure note for specifics of the case. I attest to the content of the Intraoperative Record and any orders documented therein. Any exceptions are noted below.
--- NOTE | 2022-09-08 08:44 | Operative Report ---
Post Operative Report Pre & Post Diagnosis Operation Date: 09/08/22 07:00 Pre-Op Diagnosis: Unilateral Primary Osteoarthritis, Right Hip Post-Op Diagnosis: Unilateral Primary Osteoarthritis, Right Hip I identified the patient and participated in the time-out.: Yes Procedure Operation Date: 09/08/22 07:00 Actual Procedures p Right Total Hip Arthroplasty, Uncemented(Right) - Dell Moreno MD Surgeon Dell Moreno MD Staffing Consultant SOURAV Myers PA-C. No resident or fellow was available to assist. Estimated Blood Loss 100 Findings Consistent with Post-Op Diagnosis Specimens None Anesthesia Type Spinal MAC Complications Small posterior wall fracture measuring approximately 18 mm x 10 mm which did not affect the stability of the acetabular component. Disposition Disposition: Recovery Room Indications 86-year-old female with right hip osteoarthritis refractory to conservative management. X-rays demonstrate [id number] disease with some bony erosion from the acetabulum. I had a long discussion with her about the risks and benefits of surgery, alternatives, and expected outcomes. After reviewing all these she elected proceed with surgery. All questions were answered. Informed consent was signed. Description of Procedure Patient was identified in the preoperative holding area where the surgical site, right hip, was marked. A spinal anesthetic was placed, then the patient was brought back to the main operating room, placed in the operating table and moved into the lateral decubitus position. Axillary roll was placed. All bony prominences were padded. Perioperative antibiotics and tranexamic acid 1 gram IV were administered. Operative extremity was prepped and draped in the normal sterile fashion. Prior to incision a multidisciplinary timeout was called. All in the room were in agreement. We began by making an incision for a posterior approach to the hip. We dissected down through subcutaneous tissues to the level of the fascia. The fascia was incised in line with the incision. Charnley bow was placed. Fatty tissue was reflected posteriorly off the back of the greater trochanter to expose the piriformis and short external rotators of the hip. The piriformis and short external rotators were dissected off the posterior aspect of the hip. A box cut was made in the capsule. Inferior hip capsule was released off the femur. The femoral head was dislocated. The femoral neck cut was made at our preoperative template. The acetabulum was then exposed. She was noted to have very thin anterior and posterior forde the acetabulum as well as the superior acetabular roof consistent with bony erosion. Large inferior osteophyte was also noted. The labrum was sharply excised. Contents of the cotyloid fossa were removed with electrocautery. We then began reaming at a size 8 mm less than our preoperative template. We reamed up by [address] way up to a size 52 mm cup. This gave us good bleeding cancellus bone circumferentially. The acetabulum was then irrigated out and dried. The real [place] Gription cup was then impacted down into position with 45 degrees of lateral opening and 25 degr ees of anteversion. As I impacted the cup and seated it down against the medial wall was noted the patient have a small posterior wall fracture. This was carefully inspected. Measured approximately 18 x 10 mm. This was less than 10% of the total surface area of the acetabulum. I placed a Marcie clamp on the acetabulum and attempted to pull the acetabular component out of the pelvis to tested stability and the stability remained excellent. Therefore I elected to allow this posterior wall fracture to heal primarily as no fixation was deemed necessary. A single cancellous bone screw was then placed up into the ilium. Excellent fixation was obtained. Given her age and gender she is at risk for postoperative dislocation therefore a dual mobility acetabular component was indicated. A trial liner for a dual mobility femoral head was then placed. Next we turned our attention to the femur. The lateral neck was removed with a box osteotome. Intramedullary guide was used followed by the lateralizing reamer. We then reamed up to a size 3 Cherokee stem. We then broached all the way up to a size 3. We began trialing with a standard offset neck and a +4 head. Hip was reduced. Leg lengths were symmetric. The hip was stable in extension and external rotation, and stable in the sleeper position. At 90 degrees of hip flexion the hip could be internally rotated 65 degrees before experiencing significant impingement. I was very happy with the stability exam. Therefore the hip was dislocated and the femoral trial was removed. The acetabulum was re-exposed, and the trial liner was removed. A metal liner outer diameter 52 and inner diameter 45 was then impacted into the shell. The locking mechanism was checked to ensure that it had engaged which it had. The femur was re-exposed. The femoral canal was irrigated and dried. The real size 3 standard offset Cherokee femoral stem was opened up. This was impacted down into position. It sat at the same level as the femoral trial. Therefore the 45 mm outer diameter polyethylene femoral head with +4 offset 22 mm metal femoral head was opened up and gently impacted down onto the trunnion. The hip was atraumatically reduced. Another 1 gram of IV tranexamic acid was started prior to closure. The wound was irrigated out with sterile Betadine solution. The periarticular injection cocktail was then placed. The short external rotators, piriformis, and posterior capsule were repaired through drill holes in the greater trochanter using #2 Vicryl. The fascia was run with a looped #1 PDS. The subcutaneous layer was closed with #1 PDS. The dermal layer was closed with 2-0 Vicryl. Zip line was used for the skin followed by a Silverlon dressing. A compressive dressing was then placed. The patient was then rolled supine. Leg lengths were rechecked and were symmetric. An abduction pillow was placed. Sedation was lifted and the patient was transferred to the recovery room in stable condition. Summary of implants: Depuy [place] Gription Acetabular Shell Sector Cup, 52 mm outer diameter [place] Cancellous bone screw, 6.5 x 40 mm [place] 52 mm metal dual mobility liner DePuy polyethylene 45/22 bipolar head +4 offset 22 mm metal femoral head DePuy [place] Femoral stem with [place], 12/14 taper, size 3 standard offset Postoperative course: Patient will be admitted to the hospital from the recovery room. Given the stability of the acetabular component, as well as the patient's age and risk for falls with any weightbearing restrictions, patient will be weightbearing as tolerated with posterior hip precautions. Aspirin for DVT prophylaxis I attest to the content of the Intraoperative Record and any orders documented therein. Any exceptions are noted below.
[2022-09-08] MEDS ORDERED: ACETAMINOPHEN 500 MG TAB PO PRN (08:46)
[2022-09-08] MEDS ORDERED: TRIAMCINOLONE ACET 0.1% CR 15 GM TUBE TOP PRN (08:46)
[2022-09-08] MEDS ORDERED: NYSTATIN POWDER 15GM BTL EXT PRN (08:46)
--- NOTE | 2022-09-08 09:45 | Anesthesiology Progress Note ---
Date of Service September 08, 2022 Anesthesia Post Procedure Vital Signs Vital Signs: Temp Pulse Pulse Resp BP Pulse Ox O2 Del Method 09/08/22 09:30 70 14 93/49 L 98 Room Air 09/08/22 09:00 77 13 97/45 L 98 Room Air 09/08/22 09:40 35.5 C L 68 13 97/49 L 97 Room Air 09/08/22 09:20 71 14 105/55 L 98 Room Air 09/08/22 09:10 77 18 94/50 L 98 Room Air 09/08/22 08:50 77 18 93/49 L 99 Room Air 09/08/22 08:41 36.0 C L 79 12 82/45 L 98 Room Air 09/08/22 06:01 36.4 C L 78 16 145/69 H 96 Room Air Pain Intensity Left Lower Posterior Shoulder: Pain Intensity: 4 Transfer of Care Handoff Completed per policy Notes Mental Status: alert / awake / arousable and participated in evaluation Nausea / Vomiting: adequately controlled Pain: adequately controlled Airway Patency, RR, SpO2: stable & adequate BP & HR: stable & adequate Hydration State: stable & adequate Anesthetic Complications: no major complications apparent and Pt Satisfied with anesthetic care
--- NOTE | 2022-09-08 10:46 | XRay Report ---
XR pelvis 1-2V routine CLINICAL HISTORY: Postoperative evaluation. COMPARISON: Pelvis radiograph August 26, 2022. FINDINGS: Alignment of the total right hip arthroplasty is anatomic. There is no periprosthetic frac ture. There are no unexpected radiopaque foreign bodies. There is an acetabular screw. IMPRESSION: Expected findings following total right hip arthroplasty. ACT 112: Negative or not required by law. Electronically signed by: Richy Dial M.D. 09/08/2022 10:45 AM
[2022-09-08] MEDS: General Order Problem(s) SCH ×4 (12:01→15:33)
[2022-09-08] MEDS: SODIUM CHLORIDE 0.9% 1000ML 1,000 ML IV SCH ×2 (12:42→22:47)
[2022-09-08] MEDS: MULTIVITAMIN TAB PO SCH (12:42)
[2022-09-08] MEDS: DOCUSATE SODIUM 100 MG CAP PO SCH ×2 (12:43→20:10)
[2022-09-08] MEDS: ASPIRIN 81 MG ECTAB PO SCH ×2 (12:43→20:09)
[2022-09-08] MEDS: ROSUVASTATIN CALCIUM 5 MG TAB PO SCH (12:43)
[2022-09-08] MEDS: KETOROLAC TROMETHAMINE 15 MG/ML VIAL IV SCH ×3 (12:46→22:14)
--- NOTE | 2022-09-08 13:50 | XRay Report ---
XR foot RT min 3V routine CLINICAL HISTORY: Pain in right foot and toes post-op Right RAOUL COMPARISON: None FINDINGS: No acute fracture within the right foot is noted. No osseous lesions are noted. Tarsometat arsal joints are intact. There is mild posterior calcaneal spurring. Mild osteoarthritis of the right first metatarsophalangeal joint is present. No radiographic evidence for a stress fracture. IMPRESSION: 1. No acute fracture or dislocation within the right foot. 2. Mild osteoarthritis of the right first MTP joint. ACT 112: Negative or not required by law. Electronically signed by: Richy Dial M.D. 09/08/2022 1:49 PM
[2022-09-08] MEDS ORDERED: TRANEXAMIC ACID / 0.7% NACL 1,000 MG/100 ML BAG IV SCH (14:45)
[2022-09-08] MEDS: ceFAZolin 2000MG 2,000 MG/15 ML SYR IV SCH ×2 (14:50→22:10)
[2022-09-08] MEDS: ACETAMINOPHEN 500 MG TAB PO SCH ×2 (14:50→22:15)
[2022-09-08] MEDS ORDERED: Scopolamine CHECK PATCH PLACEMENT SCH (16:00)
[2022-09-08] MEDS ORDERED: CALCIUM CARBONATE 500 MG CHEWABLE TAB PO SCH (21:00)
[2022-09-08] MEDS ORDERED: CHOLECALCIFEROL 1,000 UNITS 25 MCG TAB PO SCH (21:00)
[2022-09-08] MEDS ORDERED: amLODIPine BESYLATE 5 MG TAB PO SCH (21:00)
[2022-09-08] MEDS ORDERED: SENNA 8.6 MG TAB PO SCH (21:00)
[2022-09-08] MEDS ORDERED: CYANOCOBALAMIN (B-12) 500 MCG TABLET PO SCH (21:00)
[2022-09-09] MEDS: General Order Problem(s) SCH ×2 (03:11→11:56)
[2022-09-09] MEDS: ACETAMINOPHEN 500 MG TAB PO SCH (05:26)
[2022-09-09] MEDS: KETOROLAC TROMETHAMINE 15 MG/ML VIAL IV SCH (05:26)
[2022-09-09] MEDS ORDERED: dexAMETHasone 4 MG TAB PO SCH (08:00)
[2022-09-09] MEDS ORDERED: ASPIRIN 81 MG ECTAB PO SCH (09:00)
[2022-09-09] MEDS ORDERED: METOPROLOL SUCC 25MG EXT REL TAB PO SCH (09:00)
--- NOTE | 2022-09-09 09:03 | Orthopedic Progress Note ---
Date of Service September 09, 2022 Assessment & Plan (1) S/P total hip arthroplasty: Plan: PT/OT Weightbearing as tolerated with walker assistance Keep Silverlon dressing in place until 2-week follow-up Ice with easy wrap Pain control with p.o. medication DVT prophylaxis with SAEID stockings and aspirin Plan is to discharge home today with in-home physical therapy for the first 2 weeks postoperatively Follow-up at [facility] orthopedics as previously scheduled for your 2-week follow-up Total hip precautions again reviewed With questions contact our clinic at [phone] Admission and Anticipated Discharge Date Admission Date: September 08, 2022 Subjective This 86-year-old female is day 1 status post right total hip arthroplasty. She states she is doing very well today. She states her pain was well controlled with the p.o. tramadol. She states she has been able to transition from her bed to the chair and from her chair to the bathroom using a walker without assistance. She states she does have some pain in the top of her foot since waking up from surgery yesterday. She states it is much better today. She describes it as an aching sensation near the base of her toes. She denies any numbness or tingling or sensitivity. Currently she also denies chest pain, shortness of breath, fever, chills, sweats, nausea, vomiting or difficulty voiding. Review of Systems Review of Systems: All systems reviewed & are unremarkable except as noted in Subjective Physical Exam Physical Exam: Right hip: Outer dressing was removed. Silverlon is clean dry and intact and l eft in place. Patient is easily able to perform active straight leg raise test and actively dorsi and plantarflex her foot without issue. Quad strength is 4 out of 5. Patient has no pain with light logrolling. She has no pain with light passive hip flexion to 90 degrees as well as with light passive internal and external hip rotation. She has no tenderness to palpation over the dorsum of the foot or appreciable swelling. She is able to detect light sensation to touch over the pads of all digits and the plantar surface of her foot. Patient is neurovascular intact in the right lower extremity. Results & Data Vital Signs (Past 12 Hours) Vital Signs Temp Pulse Resp BP Pulse Ox O2 Del Method 09/09/22 06:31 36.6 C 66 16 115/59 L 97 Room Air 09/09/22 03:55 36.4 C L 68 16 100/57 L 99 Room Air 09/08/22 22:45 36.4 C L 62 16 147/68 H 99 Room Air Diagnostic Findings Laboratory Results SARS-CoV-2, RNA, NAAT NEGATIVE (NEGATIVE) 09/08/22 Unknown Impressions Pelvis X-Ray 09/08/22 08:42 XR pelvis 1-2V routine CLINICAL HISTORY: Postoperative evaluation. COMPARISON: Pelvis radiograph August 26, 2022. FINDINGS: Alignment of the total right hip arthroplasty is anatomic. There is no periprosthetic fracture. There are no unexpected radiopaque foreign bodies. There is an acetabular screw. IMPRESSION: Expected findings following total right hip arthroplasty. ACT 112: Negative or not required by law. Electronically signed by: Richy Dial M.D. 09/08/2022 10:45 AM Foot X-Ray 09/08/22 11:39 XR foot RT min 3V routine CLINICAL HISTORY: Pain in right foot and toes post-op Right RAOUL COMPARISON: None FINDINGS: No acute fracture within the right foot is noted. No osseous lesions are noted. Tarsometatarsal joints are intact. There is mild posterior calcaneal spurring. Mild osteoarthritis of the right first metatarsophalangeal joint is present. No radiographic evidence for a stress fracture. IMPRESSION: 1. No acute fracture or dislocation within the right foot. 2. Mild osteoarthritis of the right first MTP joint. ACT 112: Negative or not required by law. Electronically signed by: Richy Dial M.D. 09/08/2022 1:49 PM
--- NOTE | 2022-09-09 09:13 | Discharge Summary ---
Date of Service September 09, 2022 Admission HPI Per Admitting Provider History of Present Illness (including history relevant to procedure): This 86-year-old female presents today for her preoperative history and physical. She is scheduled to undergo a right hip total hip arthroplasty on 09/08/2022. She has had right hip pain for over 2 years. No specific injury. Pain is worse with ambulation and weightbearing. Her pain is affecting her ADLs. Pain is primarily lateral and posterior. It occasionally radiates into her groin. She was previously scheduled for total joint arthroplasty with Dr. Hernandez but had to cancel due to acute cholecystitis and bile duct stone retrieval. She has tried cortisone injections with improvement in her pain for a few years. They stopped providing relief and she now elects to proceed with surgery. No numbness or tingling. Preoperative imaging has been obtained. Admission Exam Per Admitting Provider Physical Exam: (relevant to the procedure, including heart and lung evaluation) General: Well-developed, elderly female, in no acute distress. Obvious discomfort. Sitting in a chair. Alert and oriented. Conversive. HEENT: Normocephalic, atraumatic. Eyes PERRLA, EOMI. Oropharynx and nares exams deferred due to COVID precautions. Neck: No JVD Cardiac: RRR, no MGR. Occasional PVC. Peripheral pulses are 2+. Lungs: Clear to auscultation bilaterally. No crackles, rhonchi, or wheezing. Good air movement. Abdomen: Bowel sounds present x4. Soft nontender. Extremities: Right hip has no obvious deformity. She has significant limitation in motion. Flexion to only around 85 degrees. External rotation of around 35 degrees. Internal rotation to just past neutral. All of these are limited by pain. She is ambulatory with an antalgic gait. No pain with palpation over her IT band or greater trochanter. She does have discomfort with palpation over the anterior flexion crease. Neuro: Gross sensation is intact across the right leg by soft touch. Skin: Warm and dry with good turgor. No rashes. No significant peripheral edema. Principal Diagnosis Right hip osteoarthritis Discharge Exam Right hip: Outer dressing was removed. Silverlon is clean dry and intact and left in place. Patient is easily able to perform active straight leg raise test and actively dorsi and plantarflex her foot without issue. Quad strength is 4 out of 5. Patient has no pain with light logrolling. She has no pain with light passive hip flexion to 90 degrees as well as with light passive internal and external hip rotation. She has no tenderness to palpation over the dorsum of the foot or appreciable swelling. She is able to detect light sensation to touch over the pads of all digits and the plantar surface of her foot. Patient is neurovascular intact in the right lower extremity. Discharge Data Allergies Allergy/AdvReac Type Severity Reaction Status Date / Time codeine AdvReac Unknown VOMITING Verified 09/08/22 05:32 Procedures Performed Operation Date: 09/08/22 07:00 Actual Procedures p Right Total Hip Arthroplasty, Uncemented(Right) - Dell Moreno MD Hospital Course (1) S/P total hip arthroplasty: Patient had an uneventful overnight stay other than some mild tenderness and pain over the dorsum of her foot which she states is improving. She is anxious to be discharged home today. She is planning on in-home physical therapy for the first 2 weeks postoperatively. She is very pleased with the results of her surgery and is essentially pain-free in the hip region. PT/OT Weightbearing as tolerated with walker assistance Keep Silverlon dressing in place until 2-week follow-up Ice with easy wrap Pain control with p.o. medication DVT prophylaxis with SAEID stockings and aspirin Plan is to discharge home today with in-home physical therapy for the first 2 weeks postoperatively Follow-up at [facility] as previously scheduled for your 2-week follow-up Total hip precautions again reviewed With questions contact our clinic at [phone] Total Time Total Time Spent Total Time Spent (In Minutes): 25 mins Discharge Plan Discharge Items Patient Disposition: Home - Home Health Services Reason For Visit: Unilateral Primary Osteoarthritis, Right Hip Discharge Diagnosis: Right hip osteoarthritis Activity: As commented below Bathing: Keep incision dry Bathing Comment: may shower tomorrow Sexual Activity: Wait until after follow-up appointment Exercise/Sports: Wait until after follow-up appointment Driving/Machine Use: No driving until cleared by cleaning specialist Weightbearing: Right weightbearing Weightbearing Comment: as tolerated with walker assistance Non-emergency contact: Surgeon Call non-emergency contact if: you have any medication questions, your pain is not controlled, your temperature is above 101.5, your wound has increased drainage and your wound pain has increased Follow-up/Referrals: Selena Bloom MD [Primary Care Provider] - Diet: Regular Addtl Attending Provider Instructions: Post-operative Instructions Dear Patient and Family/Friends, Before you are discharged from the hospital, it is important to know what to expect when you get home after surgery. To that end, we have created this sheet of discharge instructions which covers many commonly asked questions. Make sure you go through this sheet in its entirety with your nurse before you are discharged. Please note that we will go over the specifics of your surgery and recovery when you return for your first post-operative visit. Sincerely, Dr. Moreno Medications 1. Tramadol 50 mg: take 1-2 tabs every 4-6 hours as needed for pain control. This will be sent to your pharmacy. 2. Diclofenac sodium 50 mg: take 1 tab twice daily for post operative pain and inflammation relief. This will also be sent to your pharmacy with 1 refill. 3. Aspirin 81: increase your daily aspirin to twice daily for the first 30 days post operatively for blood clot prevention. 4. Extra strength Tylenol 500mg: take 2 tabs every 6-8 hour as needed for addition pain relief. Please purchase. Pain Expect to be in a fair amount of pain after surgery. Remember, our goal is not to eliminate your pain, but to make it tolerable. It is a good idea to stay ahead of your pain by taking the medications you were prescribed once you get h ome. Typically, the pain starts improving 3-7 days after surgery. You should start weaning off the narcotic pain medication (oxycodone, hydrocodone, hydromorphone, morphine) as soon as your pain improves. Please call our office if your pain is not adequately controlled. Ice Ice your operative site at least 5 times a day for 15-30 minutes at a time. Make sure you have a thin cloth between the ice or cooling unit and your skin to prevent carter bite. This is especially important if you received a nerve block. Continue icing your operative site for the first 5-7 days after surgery, then as needed. Diet/Nausea/Vomiting Start by drinking clear liquids and eating crackers. If you can tolerate this, then you may resume your normal diet. If you feel nauseated or vomit, take Zofran/ondansetron (if prescribed). Please call our office if you have intractable nausea or vomiting, or, if after hours, you may go to the Emergency Room for help. Constipation Constipation is a common side effect of narcotic pain medication. If you have not had a bowel movement within 2 days after surgery, we recommend purchasing an over the counter laxative such as Milk of Magnesia, Dulcolax, or Miralax from a local pharmacy, and taking it as instructed. Call our clinic if any questions. Slings and Braces If you were placed in a sling or brace, it must be worn at all times, including sleep. You may remove your sling or brace for physical therapy, home exercises, and showering. The length of time you will be in your brace and range of motion restrictions depends on what surgery you had; these details will be reviewed at your first post-operative appointment. Nerve block The anesthesia team sometimes places a nerve block to help with post-operative pain control. This results in significant numbness and inability to move the extremity. The nerve block usually wears off in 8-12 hours, but sometimes can last up to 24 hours. Please call our office if you are still unable to move your extremity after 24 hours, unless you received a pain pump to take home. Nerve blocks typically wear off quickly, so start taking pain medication as soon as you start feeling soreness near your surgical site. Weight bearing and Range of Motion. Do not bear any weight through your operative extremity immediately after surgery. If you had upper extremity surgery, do not lift anything with that arm. If you are in a knee brace, keep it locked in place until your follow-up. We will discuss your weight bearing, range of motion, and lifting restrictions in detail at your first post-operative appointment. Continuous Passive Motion (CPM) Machine If you were prescribed a CPM machine, it will start after your first post- operative appointment, at which time we will give you instructions on the range of motion settings and duration of treatment Physical therapy You will be given a prescription for physical therapy or occupational therapy at your first post-operative appointment. Typically, patients start therapy within 1 week of surgery Wound care and showering We will inspect your wound at your first post-operative visit, and may do a dressing change at that time. Most patients will be in a water-proof dressing that is removed 14 days after surgery. It is normal to see some dried blood on the dressing. Do not remove your dressing, paper strips or sutures yourself unless you are given permission. Showering is allowed the day after surgery. Do not scrub or remove any dressings. The wound should not be submerged underwater (i.e. in a bathtub or pool) until 4 weeks after surgery SAEID stockings If you were given white stockings, these are to be worn at all times except to shower (on both legs) for the first 2 weeks after surgery. Driving You may not drive while taking narcotic pain medication or while in a cast, splint, sling or brace. You, the patient, need to make the final determination about when you are safe to drive, however, the earliest you may consider driving after surgery is below: Hand/Wrist/Elbow Surgery: 3 days Shoulder Surgery: 2 weeks Hip,/Knee/Ankle Surgery: 4 weeks Fracture repair: 6 weeks Return to Work Your return to work depends on what surgery was done and what type of work you do. Please bring any paperwork your employer needs completed to your first post-operative visit. Also, bring a description of your job duties, as this helps us to understand what risks you may face at work. Travel Avoid long distance travel (greater than 1 hour) in airplanes and cars for the first 6 weeks after surgery. If you must travel, you need to have a Doppler ultrasound done before you travel to rule out a blood clot in your legs. Follow-up You should have a follow-up appointment already scheduled 1-2 days after surgery. If not, please contact our office to make this appointment before you leave the hospital. When to call the office It is normal to have swelling and bruising in the limb that was operated on. This will improve with time. It is also normal to have fevers for the first 2 days after surgery. Reasons you should call your doctor include: Uncontrolled pain; Nausea, vomiting, or constipation that does not improve with medication; Fevers over 101.5, chills, sweats; Drainage or bleeding from the wound; Foul odor; Spreading areas of redness; Any other concerns Pending Studies at Discharge: No Stand-Alone Forms: [facility] Medications and DC Order Prescriptions: New tramadol 50 mg Tablet 50 - 100 mg PO Q4H PRN (Reason: Post op pain control) Qty: 28 0RF diclofenac sodium 50 mg tablet,delayed release (DR/EC) 50 mg PO BID 30 Days Qty: 60 1RF Continued metoprolol succinate 25 mg capsule,sprinkle,ER 24hr 25 mg PO QAM acetaminophen [Tylenol Extra Strength] 500 mg tablet 500 mg PO Q6H PRN (Reason: Pain) cholecalciferol (vitamin D3) 25 mcg (1,000 unit) capsule 25 mcg PO QPM rosuvastatin 5 mg tablet 5 mg PO QAM calcium 500 mg Tablet 1,000 mg PO QPM cyanocobalamin (vitamin B-12) [Vitamin B-12] 1,000 mcg Tablet 1,000 mcg PO QPM amlodipine 5 mg Tablet 5 mg PO HS triamcinolone acetonide 0.1 % cream 1 applic topical BID PRN (Reason: eczema) nystatin 100,000 unit/gram powder 1 applic topical BID PRN (Reason: Skin Irritation) Changed aspirin 81 mg Tablet,Delayed Release (Dr/Ec) 81 mg PO BID 30 Days Qty: 60 0RF Admission Data Admit Date/Time: 09/08/22 08:42 Attending Provider: Dell Moreno Admit Provider: Dell Moreno Primary Care Provider: Selena Bloom V.
[2022-09-09] MEDS: MULTIVITAMIN TAB PO SCH (09:32)
[2022-09-09] MEDS: ASPIRIN 81 MG ECTAB PO SCH (09:32)
[2022-09-09] MEDS: ROSUVASTATIN CALCIUM 5 MG TAB PO SCH (09:33)
[2022-09-09] MEDS: DOCUSATE SODIUM 100 MG CAP PO SCH (09:39)
[2022-09-09 10:07] LABS: Basophils # (auto) 0.01 K/uL (0-0.2); Basophils % (auto) 0.1 %; Hematocrit (blood only) 37.1 % (37.0-47.0); Hemoglobin 12.2 g/dl (12.0-16.0); Immature Granulocytes # (auto) 0.08 K/uL (0.01-0.20); Immature Granulocytes % (auto) 0.6 %; Lymphocytes % (auto) 4.3 %; Mean Corpuscular Hemoglobin 31.4 pg (25.0-34.0); Mean Corpuscular Hgb Conc 32.9 g/dL (32.0-36.0); Mean Corpuscular Volume 95.6 fL (80.0-100.0); Mean Platelet Volume 10.5 fL (9.4-12.4); Monocytes # (auto) 0.76 K/uL (0.11-0.59); Monocytes % (auto) 5.4 %; Neutrophils # (auto) 12.55 K/uL (1.40-6.50); Neutrophils % (auto) 89.6 %; Platelet Count 246 K/uL (130-400); RDW Coefficient of Variation 13.3 % (11.5-14.5); RDW Standard Deviation 46.5 fL (36.4-46.3); Red Blood Count 3.88 M/uL (4.20-5.40)
[2022-09-09 10:42] LABS: Potassium 3.9 mmol/L (3.5-5.1)
[2022-09-09 10:48] LABS: BUN Creatinine Ratio 22.4 (10-20); Creatinine Clr Calc Pharmacy 42.8 ml/min; Est GFR (African American) 82.9 ml/min; Est GFR (Non-African American) 71.5 ml/min
== END 2022-09-09 13:15 | disposition home health service (06) ==
LOC: ASU 05:04 → 3E 05:04